=== PATIENT | female | born 1960 | race Caucasian/White ===

== ENCOUNTER 2016-10-11 10:46 | Emergency (ER) | payer MEDICAID ==
--- NOTE | 2016-10-11 11:28 | ER Document Report ---
ED Medical Screen (RME) - General Chief Complaint: Skin Problem Stated Complaint: SKIN PROBLEM/RIGHT ARM Time Seen by Provider: 10/11/16 11:23 Mode of Arrival: Ambulatory Information source: Patient Notes: This 56-year-old female patient comes emergency room with painful swelling to the right distal dorsal forearm. Seen in the office and received a Rocephin injection and prescription for Keflex on 10/08/2016. The area is looking worse and has some drainage. Patient has factor V Leiden and is on Coumadin for this. She also has hypertension, and states she may be borderline diabetic but has not been tested. I have greeted and performed a rapid initial assessment of this patient. A comprehensive ED assessment and evaluation of the patient, analysis of test results and completion of the medical decision making process will be conducted by additional ED providers. TRAVEL OUTSIDE OF THE [place] IN LAST 30 DAYS: No - Related Data Allergies/Adverse Reactions: erythromycin base Allergy (Verified 10/11/16 11:10) morphine Allergy (Verified 10/11/16 11:10) tetracycline Allergy (Verified 10/11/16 11:10) Past Medical History - Social History Chew tobacco use (# tins/day): No Frequency of alcohol use: None Drug Abuse: None - Past Medical History Cardiac Medical History: Reports: Hx Hypertension Pulmonary Medical History: Reports: Hx COPD Renal/ Medical History: Denies: Hx Peritoneal Dialysis Past Surgical History: Reports: Hx Orthopedic Surgery, Hx Tubal Ligation - Immunizations Hx Diphtheria, Pertussis, Tetanus Vaccination: Yes Physical Exam - Vital signs Vitals: Temp Pulse Resp BP Pulse Ox 98.4 F 73 18 153/96 H 96 10/11/16 10:48 10/11/16 10:48 10/11/16 10:48 10/11/16 10:48 10/11/16 10:48 Course - Vital Signs Vital signs: Temp Pulse Resp BP Pulse Ox 98.4 F 73 18 153/96 H 96 10/11/16 10:48 10/11/16 10:48 10/11/16 10:48 10/11/16 10:48 10/11/16 10:48
[2016-10-11 12:15] LABS: PROTHROMBIN TIME 35.9 SEC (11.4-15.4)
[2016-10-11 12:16] LABS: ABSOLUTE LYMPHOCYTES (AUTO) 0.4 10^3/uL (0.5-4.7); ABSOLUTE MONOCYTES (AUTO) 0.4 10^3/uL (0.1-1.4); ABSOLUTE NEUT (AUTO) 4.3 10^3/uL (1.7-8.2); BASOPHILS % (AUTO) 0.3 % (0-2); EOSINOPHILS % (AUTO) 0.2 % (0-6); HEMOGLOBIN 13.3 g/dL (12.0-15.5); HGB HCT DIFFERENCE -0.1; LYMPHOCYTES % (AUTO) 7.3 % (13-45); MEAN CORPUSCULAR HEMOGLOBIN 28.2 pg (27.0-33.4); MEAN CORPUSCULAR HGB CONC 33.2 g/dL (32.0-36.0); MEAN CORPUSCULAR VOLUME 85 fl (80-97); MONOCYTES % (AUTO) 8.3 % (3-13); RED BLOOD COUNT 4.72 10^6/uL (3.72-5.28); RED CELL DISTRIBUTION WIDTH 13.1 % (11.5-14.0); SEGMENTED NEUTROPHILS % (AUTO) 83.9 % (42-78); WHITE BLOOD COUNT 5.1 10^3/uL (4.0-10.5)
[2016-10-11 12:34] LABS: ALANINE AMINOTRANSFERASE 47 U/L (9-52); ALBUMIN 3.8 g/dL (3.5-5.0); ALKALINE PHOSPHATASE 87 U/L (38-126); ANION GAP 12 (5-19); ASPARTATE AMINO TRANSFERASE 32 U/L (14-36); BILIRUBIN,DIRECT 0.4 mg/dL (0.0-0.4); BILIRUBIN,TOTAL 0.7 mg/dL (0.2-1.3); BLOOD UREA NITROGEN 18 mg/dL (7-20); CALCIUM 9.7 mg/dL (8.4-10.2); CARBON DIOXIDE 31 mmol/L (22-30); CHLORIDE 100 mmol/L (98-107); CREATININE RESULT 0.81 mg/dL (0.52-1.25); GLUCOSE 124 mg/dL (75-110); POTASSIUM 3.8 mmol/L (3.6-5.0); SODIUM 142.5 mmol/L (137-145); TOTAL PROTEIN 6.8 g/dL (6.3-8.2)
[2016-10-11] MEDS ORDERED: CLINDAMYCIN HCL 150 MG CAPSULE PO ONE (13:06)
--- NOTE | 2016-10-11 13:54 | ER Document Report ---
ED General - General Chief Complaint: Skin Problem Stated Complaint: SKIN PROBLEM/RIGHT ARM Time Seen by Provider: 10/11/16 11:23 Mode of Arrival: Ambulatory TRAVEL OUTSIDE OF THE [place] IN LAST 30 DAYS: No - HPI Patient complains to provider of: Cellulitis abscess Notes: Patient coming in with history of diabetes and cellulitis of her arm. She otherwise has not. Patient has developed what looks to be an abscess of the distal arms proximal to the wrist. Patient denies fevers chills nausea vomiting. Patient is currently on Keflex states compliant with her medication. Patient denies any other recent antibiotics. Patient denies pain in her wrist. Patient does have range of motion in her wrist - Related Data Allergies/Adverse Reactions: erythromycin base Allergy (Verified 10/11/16 11:10) morphine Allergy (Verified 10/11/16 11:10) tetracycline Allergy (Verified 10/11/16 11:10) Past Medical History - General Information source: Patient - Social History Smoking Status: Never Smoker Chew tobacco use (# tins/day): No Frequency of alcohol use: None Drug Abuse: None Family History: Reviewed & Not Pertinent Patient has suicidal ideation: No Patient has homicidal ideation: No - Past Medical History Cardiac Medical History: Reports: Hx Hypertension Pulmonary Medical History: Reports: Hx COPD Renal/ Medical History: Denies: Hx Peritoneal Dialysis Past Surgical History: Reports: Hx Orthopedic Surgery, Hx Tubal Ligation - Immunizations Hx Diphtheria, Pertussis, Tetanus Vaccination: Yes Review of Systems - Review of Systems Constitutional: No symptoms reported EENT: No symptoms reported Cardiovascular: No symptoms reported Respiratory: No symptoms reported Gastrointestinal: No symptoms reported Genitourinary: No symptoms reported Female Genitourinary: No symptoms reported Musculoskeletal: No symptoms reported Skin: Other - Cellulitis and abscess Hematologic/Lymphatic: No symptoms reported Neurological/Psychological: No symptoms reported -: Yes All other systems reviewed and negative Physical Exam - Vital signs Vitals: Temp Pulse Resp BP Pulse Ox 98.4 F 73 18 153/96 H 96 10/11/16 10:48 10/11/16 10:48 10/11/16 10:48 10/11/16 10:48 10/11/16 10:48 Interpretation: Normal - General General appearance: Appears well, Alert - HEENT Head: Normocephalic, Atraumatic Eyes: Normal Pupils: PERRL - Respiratory Respiratory status: No respiratory distress Chest status: Nontender Breath sounds: Normal Chest palpation: Normal - Cardiovascular Rhythm: Regular Heart sounds: Normal auscultation Murmur: No - Abdominal Inspection: Normal Distension: No distension Bowel sounds: Normal Tenderness: Nontender Organomegaly: No organomegaly - Back Back: Normal, Nontender - Extremities General upper extremity: Normal inspection, Tender - Tenderness to palpation of the erythema of the distal arm proximal to the consistent with abscess, Normal color, Normal ROM, Normal temperature General lower extremity: Normal inspection, Nontender, Normal color, Normal ROM , Normal temperature, Normal weight bearing. No: Kasey's sign - Neurological Neuro grossly intact: Yes Cognition: Normal Orientation: AAOx4 [place] Coma Scale Eye Opening: Spontaneous Rita Coma Scale Verbal: Oriented [place] Coma Scale Motor: Obeys Commands [place] Coma Scale Total: 15 Speech: Normal Motor strength normal: LUE, RUE, LLE, RLE Sensory: Normal - Psychological Associated symptoms: Normal affect, Normal mood - Skin Skin Temperature: Warm Skin Moisture: Dry Skin Color: Normal Course - Re-evaluation Re-evalutation: 10/11/16 16:24 Patient seen for cellulitis abscess. Cellulitic area was marked. Patient underwent I&D with copious amount of pus. No signs of significant infection or sepsis. Patient was discharged home on clindamycin to cover MRSA sent - Vital Signs Vital signs: Temp Pulse Resp BP Pulse Ox 98.4 F 73 18 153/96 H 96 10/11/16 10:48 10/11/16 10:48 10/11/16 10:48 10/11/16 10:48 10/11/16 10:48 - Laboratory Result Diagrams: 10/11/16 11:47 10/11/16 11:47 Laboratory results interpreted by me: 10/11/16 10/11/16 10/11/16 11:47 11:47 11:47 Seg Neutrophils % 83.9 H Lymphocytes % 7.3 L Absolute Lymphocytes 0.4 L PT 35.9 H Carbon Dioxide 31 H Glucose 124 H Hemoglobin A1c % 10/11/16 11:47 Seg Neutrophils % Lymphocytes % Absolute Lymphocytes PT Carbon Dioxide Glucose Hemoglobin A1c % 6.1 H Procedures - Incision and Drainage Right Arm Type: Simple Anesthetic type: 1% Lidocaine mL's of anesthetic: 2 Blade size: 11 I&D procedure: Betadine prep applied, Chlorprep applied Incision Method: Incision made by scalpel Amount/type of drainage: Greater than 10 cc less than 20 cc of pus skin d made to allow the draining Discharge - Discharge Clinical Impression: Abscess Cellulitis Qualifiers: Site of cellulitis: unspecified site Qualified Code(s): L03.90 - Cellulitis, unspecified Condition: Good Disposition: HOME, SELF-CARE Instructions: Abscess ([facility]), Cellulitis ([facility]) Additional Instructions: Please take your antibiotics as prescribed. Return to the ER if symptoms worsen. Follow-up with your primary care physician. Prescriptions: Clindamycin HCl [Cleocin HCl] 150 mg PO QID 10 Days Referrals: TANIHSA MICHELLE DO [Primary Care Provider] - Follow up in 3-5 days
[2016-10-11 14:34] VITALS: BP 150/89
== END 2016-10-11 14:00 | disposition home or self-care (01) ==
LOC: ER 10:46
PROC: 0H9DXZZ Drainage of Right Lower Arm Skin, External Approach (ICD-10-PCS; principal; 2016-10-11)
DX: L03.90 Cellulitis, unspecified (principal); L02.413 Cutaneous abscess of right upper limb
CPT/HCPCS: 36415; 80053; 83036; 85025; 85610; 87070; 87075; 87077; 87186; 87205; 99283

== ENCOUNTER → 2016-10-28 | Outpatient (CLI) | payer SELFPAY ==
--- NOTE | 2016-10-28 16:44 | RADIOLOGY REPORT (SQ) ---
EXAM DESCRIPTION: TIBIA FIBULA RIGHT COMPLETED DATE/TIME: 10/28/2016 4:35 pm REASON FOR STUDY: PAIN IN RIGHT LOWER LEG, HEMATOMA OF LEFT HIP M79.661 PAIN IN RIGHT LOWER LEG S70 .02XA CONTUSION OF LEFT HIP, INITIAL ENCOUNTER COMPARISON: None. NUMBER OF VIEWS: Two views. TECHNIQUE: Two radiographic images acquired of the right tibia and fibula to include the knee and an kle in at least one projection. LIMITATIONS: None. FINDINGS: MINERALIZATION: Normal. BONES: No acute fracture or dislocation. No worrisome bone lesions. SOFT TISSUES: No obvious swelling or foreign body. OTHER: No other significant finding. IMPRESSION: NEGATIVE STUDY OF THE RIGHT TIBIA AND FIBULA. NO RADIOGRAPHIC EVIDENCE OF ACUTE INJURY. TECHNICAL DOCUMENTATION: JOB ID: [id number] [employer]- All Rights Reserved
--- NOTE | 2016-10-28 16:45 | RADIOLOGY REPORT (SQ) ---
EXAM DESCRIPTION: HIP LEFT AP/LATERAL COMPLETED DATE/TIME: 10/28/2016 4:35 pm REASON FOR STUDY: PAIN IN RIGHT LOWER LEG, HEMATOMA OF LEFT HIP M79.661 PAIN IN RIGHT LOWER LEG S70 .02XA CONTUSION OF LEFT HIP, INITIAL ENCOUNTER COMPARISON: None. NUMBER OF VIEWS: Two views. TECHNIQUE: AP pelvis and additional frog-leg view of the left hip. LIMITATIONS: None. FINDINGS: MINERALIZATION: Normal. LEFT HIP: No fracture or dislocation. No worrisome bone lesions. RIGHT HIP: No fracture or dislocation. No worrisome bone lesions. PUBIS AND ISCHIUM: No fracture. PELVIS: No fracture. SACRUM: No fracture or dislocation. No worrisome bone lesions. LOWER LUMBAR SPINE: No fracture or dislocation. No worrisome bone lesions. No significant disc disea se. SOFT TISSUES: No findings. OTHER: No other significant finding. IMPRESSION: NEGATIVE STUDY OF THE LEFT HIP AND PELVIS. NO RADIOGRAPHIC EVIDENCE OF ACUTE INJURY. TECHNICAL DOCUMENTATION: JOB ID: [id number] [employer]- All Rights Reserved
== END ==
LOC: RAD 16:12
PROVIDERS: ATTEND Family Medicine
DX: S70.02XA Contusion of left hip, initial encounter (principal); X58.XXXA Exposure to other specified factors, initial encounter; M79.661 Pain in right lower leg

== ENCOUNTER 2016-11-13 17:32 | Emergency (ER) | payer SELFPAY ==
--- NOTE | 2016-11-13 18:27 | ER Document Report ---
ED Medical Screen (RME) - General Mode of Arrival: Ambulatory Information source: Patient TRAVEL OUTSIDE OF THE [place] IN LAST 30 DAYS: No - HPI Patient complains to provider of: Rash and bruising to the right arnold and left hip Onset: Other - see notes above Associated Symptoms: Other - see notes above <KATHRYN JEWELL - Last Filed: 11/13/16 19:40> <MARGARITA TORRES - Last Filed: 11/13/16 21:22> - General Chief Complaint: Contusion Stated Complaint: RIGHT CALF AND LEFT HIP PAIN Time Seen by Provider: 11/13/16 18:18 Notes: 56 year old female with history of pulmonary embolism and Factor V Leiden presents to the ED complaining of a generalized rash to her upper torso and back and bruises to the right anterior arnold and left hip. Patient reports that she had a fall on 10/23/2016 and bruised her right arnold and left hip and is concerned that they might be infected and have turned into an abscess. Patient states that during memorial day she came to the ED with a bruise to her wrist that was infected with MRSA and had to be drained. Patient is concerned that this is the case for the bruises to her right arnold and left hip. Patient noticed the generalized rash to her upper torso and back yesterday after she started scratching her back. Patient is currently taking Coumadin. (KATHRYN JEWELL) - Related Data Allergies/Adverse Reactions: erythromycin base Allergy (Verified 10/11/16 11:10) morphine Allergy (Verified 10/11/16 11:10) tetracycline Allergy (Verified 10/11/16 11:10) Past Medical History - General Information source: Patient - Past Medical History Cardiac Medical History: Reports: Hx Hypertension Pulmonary Medical History: Reports: Hx COPD Renal/ Medical History: Denies: Hx Peritoneal Dialysis Skin Medical History: Reports Hx MRSA Past Surgical History: Reports: Hx Orthopedic Surgery, Hx Tubal Ligation - Immunizations Hx Diphtheria, Pertussis, Tetanus Vaccination: Yes <KATHRYN JEWELL - Last Filed: 11/13/16 19:40> <MARGARITA TORRES - Last Filed: 11/13/16 21:22> - Medical History Notes: History of Factor V Leiden. (KATHRYN JEWELL) Review of Systems - Review of Systems Constitutional: No symptoms reported EENT: No symptoms reported Cardiovascular: No symptoms reported Respiratory: No symptoms reported Gastrointestinal: No symptoms reported Genitourinary: No symptoms reported Female Genitourinary: No symptoms reported Musculoskeletal: No symptoms reported Skin: See HPI, Rash, Other - brusing to the right arnold and left hip Hematologic/Lymphatic: No symptoms reported Neurological/Psychological: No symptoms reported -: Yes All other systems reviewed and negative <KATHRYN JEWELL - Last Filed: 11/13/16 19:40> Physical Exam - General General appearance: Alert In distress: None - HEENT Head: Normocephalic, Atraumatic Eyes: Normal Extraocular movements intact: Yes Pupils: PERRL - Respiratory Respiratory status: No respiratory distress - Extremities General upper extremity: No: Normal inspection - see skin exam below General lower extremity: No: Normal inspection - see skin exam below - Skin Skin irregularity: other - 2 large swollen areas consistent with hematomas. Largest hematoma is to the left lateral hip with small centralized area of fluctuance with minimal surrounding erythema. Smaller hematoma is to the right anterior tibia with no erythema or fluctuance. Non-blanching petechial rash on the bilateral legs. There is a flat erythematous diffuse blanching fine rash confluent on the back, less dense on breast, and across the anterior abdomen. <KATHRYN JEWELL - Last Filed: 11/13/16 19:40> Course - Laboratory Result Diagrams: 11/13/16 18:35 11/13/16 18:35 <KATHRYN JEWELL - Last Filed: 11/13/16 19:40> - Laboratory Result Diagrams: 11/13/16 18:35 11/13/16 18:35 <MARGARITA TORRES - Last Filed: 11/13/16 21:22> - Vital Signs Vital signs: Temp Pulse Resp BP Pulse Ox 98.1 F 79 18 149/97 H 99 11/13/16 20:50 11/13/16 20:50 11/13/16 20:50 11/13/16 20:50 11/13/16 20:50 - Laboratory Laboratory results interpreted by me: 11/13/16 11/13/16 11/13/16 18:35 18:35 18:35 RDW 14.1 H PT 31.4 H APTT 40.9 H BUN 24 H Est GFR ( Amer) 56 L Est GFR (Non-Af Amer) 46 L Doctor's Discharge <KATHRYN JEWELL - Last Filed: 11/13/16 19:40> <MARGARITA TORRES - Last Filed: 11/13/16 21:22> - Discharge Clinical Impression: Hematoma and contusion, Rash Condition: Fair Disposition: HOME, SELF-CARE Additional Instructions: Take ceterizine 10mg twice daily and hold on the clindamycin as it may be related to your rash. Please return if you develop shortness of breath, vomiting , pass out, or have any other symptoms that are concerning to you. Referrals: TANISHA MICHELLE DO [Primary Care Provider] - Follow up as needed Scribe Documentation - Scribe Written by Munir:: Munir Stewart, 11/13/20162004 acting as scribe for :: Nasir <KATHRYN JEWELL - Last Filed: 11/13/16 19:40>
[2016-11-13 18:56] LABS: ABSOLUTE EOSINOPHILS # (AUTO) 0.1 10^3/uL (0.0-0.6); ABSOLUTE LYMPHOCYTES (AUTO) 1.1 10^3/uL (0.5-4.7); ABSOLUTE MONOCYTES (AUTO) 0.8 10^3/uL (0.1-1.4); ABSOLUTE NEUT (AUTO) 4.8 10^3/uL (1.7-8.2); BASOPHILS % (AUTO) 0.5 % (0-2); HEMOGLOBIN 13.7 g/dL (12.0-15.5); HGB HCT DIFFERENCE -0.9; LYMPHOCYTES % (AUTO) 16.4 % (13-45); MEAN CORPUSCULAR HEMOGLOBIN 27.9 pg (27.0-33.4); MEAN CORPUSCULAR HGB CONC 32.6 g/dL (32.0-36.0); MEAN CORPUSCULAR VOLUME 86 fl (80-97); MONOCYTES % (AUTO) 11.6 % (3-13); RED CELL DISTRIBUTION WIDTH 14.1 % (11.5-14.0); SEGMENTED NEUTROPHILS % (AUTO) 69.5 % (42-78); WHITE BLOOD COUNT 6.9 10^3/uL (4.0-10.5)
[2016-11-13] MEDS ORDERED: DIPHENHYDRAMINE HCL 50 MG CAPSULE PO ONE (18:58)
[2016-11-13 19:05] LABS: PARTIAL THROMBOPLASTIN TIME 40.9 SEC (23.5-35.8); PROTHROMBIN TIME 31.4 SEC (11.4-15.4)
[2016-11-13 19:08] LABS: ALANINE AMINOTRANSFERASE 39 U/L (9-52); ALBUMIN 4.4 g/dL (3.5-5.0); ALKALINE PHOSPHATASE 90 U/L (38-126); ANION GAP 11 (5-19); ASPARTATE AMINO TRANSFERASE 27 U/L (14-36); BILIRUBIN,DIRECT 0.3 mg/dL (0.0-0.4); BILIRUBIN,TOTAL 0.8 mg/dL (0.2-1.3); BLOOD UREA NITROGEN 24 mg/dL (7-20); CALCIUM 9.7 mg/dL (8.4-10.2); CARBON DIOXIDE 29 mmol/L (22-30); CHLORIDE 103 mmol/L (98-107); GLUCOSE 90 mg/dL (75-110); POTASSIUM 3.7 mmol/L (3.6-5.0); SODIUM 143.2 mmol/L (137-145); TOTAL PROTEIN 7.3 g/dL (6.3-8.2)
--- NOTE | 2016-11-13 20:31 | ER Document Report ---
ED General - General Chief Complaint: Contusion Stated Complaint: RIGHT CALF AND LEFT HIP PAIN Time Seen by Provider: 11/13/16 18:18 Mode of Arrival: Ambulatory Notes: Patient is a 56-year-old female with a history of PE currently screen was on warfarin who presents with concerns of a rash over her back and torso that started in the past 12 hours. Describes as a pruritic, burning rash. Nothing worsens her symptoms and she is uncertain what triggered them. She has tried Benadryl without any significant improvement. Patient states that she is currently on clindamycin for a possible cellulitis of her right lower extremity she has been on this for 8 days and did not develop a rash until today. Denies any associated difficulty breathing, vomiting, diarrhea or syncope. She has not seen a primary care doctor regarding today's concerns. TRAVEL OUTSIDE OF THE [place] IN LAST 30 DAYS: No - Related Data Allergies/Adverse Reactions: erythromycin base Allergy (Verified 10/11/16 11:10) morphine Allergy (Verified 10/11/16 11:10) tetracycline Allergy (Verified 10/11/16 11:10) Past Medical History - General Information source: Patient - Social History Smoking Status: Never Smoker Chew tobacco use (# tins/day): No Frequency of alcohol use: None Drug Abuse: None Lives with: Spouse/Significant other Family History: Reviewed & Not Pertinent Patient has suicidal ideation: No Patient has homicidal ideation: No - Past Medical History Cardiac Medical History: Reports: Hx Hypertension Pulmonary Medical History: Reports: Hx COPD Renal/ Medical History: Denies: Hx Peritoneal Dialysis Skin Medical History: Reports Hx MRSA Past Surgical History: Reports: Hx Orthopedic Surgery, Hx Tubal Ligation - Immunizations Hx Diphtheria, Pertussis, Tetanus Vaccination: Yes Review of Systems - Review of Systems Notes: Constitutional: Negative for fever. HENT: Negative for sore throat. Eyes: Negative for visual changes. Cardiovascular: Negative for chest pain. Respiratory: Negative for shortness of breath. Gastrointestinal: Negative for abdominal pain, vomiting or diarrhea. Genitourinary: Negative for dysuria. Musculoskeletal: Negative for back pain. Skin: Positive for rash. Neurological: Negative for headaches, weakness or numbness. 10 point ROS negative except as marked above and in HPI. Physical Exam - Vital signs Vitals: Temp Pulse Resp BP Pulse Ox 98.3 F 98 15 154/99 H 98 11/13/16 17:47 06/30/17 17:47 11/13/16 17:47 11/13/16 17:47 11/13/16 17:47 Interpretation: Hypertensive Notes: PHYSICAL EXAMINATION: GENERAL: Well-appearing, well-nourished and in no acute distress. HEAD: Atraumatic, normocephalic. EYES: Pupils equal round and reactive to light, extraocular movements intact, sclera anicteric, conjunctiva are normal. ENT: nares patent, oropharynx clear without exudates. Moist mucous membranes. NECK: Normal range of motion, supple without lymphadenopathy LUNGS: Breath sounds clear to auscultation bilaterally and equal. No wheezes rales or rhonchi. HEART: Regular rate and rhythm without murmurs ABDOMEN: Soft, nontender, normoactive bowel sounds. No guarding, no rebound. No masses appreciated. EXTREMITIES: Normal range of motion, no pitting or edema. No cyanosis. NEUROLOGICAL: No focal neurological deficits. Moves all extremities spontaneously and on command. PSYCH: Normal mood, normal affect. SKIN: Warm, Dry, normal turgor, diffuse papular rash along the back and torso. There is a 2 x 3 cm hematoma on the right tibial surface without any surrounding erythema or edema. There is also a resolving hematoma along the left hip without any fluctuance or tenderness to palpation. Course - Re-evaluation Re-evalutation: 11/13/16 20:30 Patient presents with a papular rash over her back and torso, not completely consistent with acute urticaria. No petechial rash. She also has 2 hematomas that have been present since the and she notes it actually significantly improved since her original injury. There is no evidence of a cellulitis or abscess to the affected areas. She is otherwise well in appearance, vitals within normal limits, hemoglobin, platelets and white blood cell count are all within normal limits. I have encouraged her to discontinue clindamycin and see if this resolves her rash though her current clinical history of 8 days into taking the antibiotic is not entirely consistent with a true allergic reaction. At this time will discharge with return precautions and follow-up recommendations. Verbal discharge instructions given a the bedside and opportunity for questions given. Medication warnings reviewed. Patient is in agreement with this plan and has verbalized understanding of return precautions and the need for primary care follow-up in the next 24-72 hours. - Vital Signs Vital signs: Temp Pulse Resp BP Pulse Ox 98.1 F 79 18 149/97 H 99 11/13/16 20:50 11/13/16 20:50 11/13/16 20:50 11/13/16 20:50 11/13/16 20:50 - Laboratory Result Diagrams: 11/13/16 18:35 11/13/16 18:35 Laboratory results interpreted by me: 11/13/16 11/13/16 11/13/16 18:35 18:35 18:35 RDW 14.1 H PT 31.4 H APTT 40.9 H BUN 24 H Est GFR ( Amer) 56 L Est GFR (Non-Af Amer) 46 L Discharge - Discharge Clinical Impression: Hematoma and contusion, Rash Condition: Fair Disposition: HOME, SELF-CARE Additional Instructions: Take ceterizine 10mg twice daily and hold on the clindamycin as it may be related to your rash. Please return if you develop shortness of breath, vomiting , pass out, or have any other symptoms that are concerning to you. Referrals: TANISHA MICHELEL DO [Primary Care Provider] - Follow up as needed
[2016-11-13 20:56] VITALS: BP 149/97
== END 2016-11-13 20:51 | disposition home or self-care (01) ==
LOC: ER 17:32
DX: S80.11XA Contusion of right lower leg, initial encounter (principal); S70.02XA Contusion of left hip, initial encounter; X58.XXXA Exposure to other specified factors, initial encounter; R21 Rash and other nonspecific skin eruption; I10 Essential (primary) hypertension; J44.9 Chronic obstructive pulmonary disease, unspecified; Z86.711 Personal history of pulmonary embolism; Z79.01 Long term (current) use of anticoagulants; Z88.1 Allergy status to other antibiotic agents; Z88.5 Allergy status to narcotic agent; Z86.14 Personal history of Methicillin resistant Staphylococcus aureus infection
CPT/HCPCS: 36415; 80053; 85025; 85610; 85730; 99283

== ENCOUNTER → 2017-04-13 | Outpatient (CLI) | payer SELFPAY ==
--- NOTE | 2017-04-13 16:30 | RADIOLOGY REPORT (SQ) ---
EXAM DESCRIPTION: CHEST PA/LAT COMPLETED DATE/TIME: 04/13/2017 4:03 pm REASON FOR STUDY: R06.02 SHORTNESS OF BREATH COMPARISON: 08/13/2015 EXAM PARAMETERS: NUMBER OF VIEWS: two views TECHNIQUE: Digital Frontal and Lateral radiographic views of the chest acquired. RADIATION DOSE: NA LIMITATIONS: none FINDINGS: LUNGS AND PLEURA: There are patchy infiltrates in the left lower lobe and right lower lobe , worrisome for pneumonia. No pleural effusions. No pneumothorax. MEDIASTINUM AND HILAR STRUCTURES: No masses or contour abnormalities. HEART AND VASCULAR STRUCTURES: Heart normal size. No evidence for failure. BONES: No acute findings. HARDWARE: None in the chest. OTHER: No other significant finding. IMPRESSION: Bilateral lower lobe airspace disease, left greater than right, worrisome for pneumonia TECHNICAL DOCUMENTATION: JOB ID: [id number] [employer]- All Rights Reserved
== END ==
LOC: RAD 15:47
PROVIDERS: ATTEND Family Medicine
DX: R06.02 Shortness of breath (principal)
CPT/HCPCS: 71020

== ENCOUNTER → 2017-07-10 | Outpatient (CLI) | payer SELFPAY ==
--- NOTE | 2017-07-10 14:36 | RADIOLOGY REPORT (SQ) ---
EXAM DESCRIPTION: CHEST PA/LATERAL COMPLETED DATE/TIME: 07/10/2017 11:05 am REASON FOR STUDY: CHEST PAIN ON BREATHING COMPARISON: 04/13/2017 two-view chest 08/13/2015 two-view chest EXAM PARAMETERS: NUMBER OF VIEWS: two views TECHNIQUE: Digital Frontal and Lateral radiographic views of the chest acquired. RADIATION DOSE: NA LIMITATIONS: none FINDINGS: LUNGS AND PLEURA: Minimal biapical pleural-parenchymal scarring, similar compared to studi es dating back to 2016. No acute infiltrates. No pleural effusions. No pneumothorax MEDIASTINUM AND HILAR STRUCTURES: No masses or contour abnormalities. HEART AND VASCULAR STRUCTURES: Heart normal size. No evidence for failure. BONES: No acute findings. HARDWARE: None in the chest. OTHER: No other significant finding. IMPRESSION: NO SIGNIFICANT RADIOGRAPHIC FINDING IN THE CHEST. TECHNICAL DOCUMENTATION: JOB ID: [id number] [employer]- All Rights Reserved Reading location - IP/workstation name: [email or web address]
== END ==
LOC: OD 10:50
PROVIDERS: ATTEND Family Medicine
DX: R07.1 Chest pain on breathing (principal)
CPT/HCPCS: 71046

== ENCOUNTER → 2017-10-29 | Outpatient (CLI) | payer SELFPAY ==
--- NOTE | 2017-10-29 12:33 | RADIOLOGY REPORT (SQ) ---
EXAM DESCRIPTION: FOOT BILATERAL 3 VIEWS COMPLETED DATE/TIME: 10/29/2017 11:44 am REASON FOR STUDY: PAIN IN BOTH FEET M79.671 PAIN IN RIGHT FOOT M79.672 PAIN IN LEFT FOOT COMPARISON: None. NUMBER OF VIEWS: Three views. TECHNIQUE: AP, lateral and oblique without weight bearing radiographic images acquired of the right and left foot. LIMITATIONS: None. FINDINGS: MINERALIZATION: Normal. BONES: No acute fracture or dislocation. No worrisome bone lesions. No sclerosis. No periosteum mandeep ction. No significant osteophytes. JOINTS: No erosions. No kena-articular osteopenia. No chondrocalcinosis. SOFT TISSUES: No swelling. No calcifications. OTHER: No other significant finding. IMPRESSION: NO SIGNIFICANT FINDINGS IN EITHER FOOT. TECHNICAL DOCUMENTATION: JOB ID: [id number] [employer]- All Rights Reserved Reading location - IP/workstation name: [email or web address]
== END ==
LOC: RAD 11:07
PROVIDERS: ATTEND Family Medicine
DX: M79.671 Pain in right foot (principal); M79.672 Pain in left foot

== ENCOUNTER 2017-12-21 16:04 | Emergency (ER) | payer SELFPAY ==
--- NOTE | 2017-12-21 17:08 | ER Document Report ---
ED Medical Screen (RME) - General Chief Complaint: Foot Pain Stated Complaint: FOOT PAIN Time Seen by Provider: 12/21/17 16:55 Notes: Patient presents with concern of redness that began tracking of her right foot into her right lower extremity that started several days ago. Patient states that she has been having in her right foot since approximately but no recent traumas falls scrapes abrasions or lacerations. Patient states she has been feeling hot today. Patient has history of blood clots in her lungs or legs and is on warfarin for her factor V Leiden. No chest pain or shortness of breath at this time I have greeted and performed a rapid initial assessment of this patient. A comprehensive ED assessment and evaluation of the patient, analysis of test results and completion of the medical decision making process will be conducted by additional ED providers. PHYSICAL EXAMINATION: GENERAL: Well-appearing, well-nourished and in no acute distress. HEAD: Atraumatic, normocephalic. EYES: Pupils equal round extraocular movements intact, conjunctiva are normal. ENT: Nares patent NECK: Normal range of motion LUNGS: No respiratory distress Musculoskeletal: Normal range of motion NEUROLOGICAL: Normal speech, normal gait. PSYCH: Normal mood, normal affect. SKIN: +2 RLE pitting edema, erythema, warmth compared to LLE. TRAVEL OUTSIDE OF THE [place] IN LAST 30 DAYS: No - Related Data Allergies/Adverse Reactions: erythromycin base Allergy (Verified 10/11/16 11:10) morphine Allergy (Verified 10/11/16 11:10) tetracycline Allergy (Verified 10/11/16 11:10) Past Medical History - Past Medical History Cardiac Medical History: Reports: Hx Hypertension Pulmonary Medical History: Reports: Hx COPD Renal/ Medical History: Denies: Hx Peritoneal Dialysis Skin Medical History: Reports Hx MRSA Past Surgical History: Reports: Hx Orthopedic Surgery, Hx Tubal Ligation - Immunizations Hx Diphtheria, Pertussis, Tetanus Vaccination: Yes Physical Exam - Vital signs Vitals: Temp Pulse Resp BP Pulse Ox 99.7 F 121 H 18 116/60 94 12/21/17 16:14 12/21/17 16:14 12/21/17 16:14 12/21/17 16:14 12/21/17 16:14 Course - Vital Signs Vital signs: Temp Pulse Resp BP Pulse Ox 99.7 F 121 H 18 116/60 94 12/21/17 16:14 12/21/17 16:14 12/21/17 16:14 12/21/17 16:14 12/21/17 16:14 Doctor's Discharge - Discharge Referrals: TANISHA MICHELLE DO [Primary Care Provider] - Follow up as needed
--- NOTE | 2017-12-21 17:32 | RADIOLOGY REPORT (SQ) ---
EXAM DESCRIPTION: FOOT RIGHT COMPLETE COMPLETED DATE/TIME: 12/21/2017 5:23 pm REASON FOR STUDY: foot swelling COMPARISON: None. NUMBER OF VIEWS: Three views. TECHNIQUE: AP, lateral and oblique radiographic images acquired of the right foot. LIMITATIONS: None. FINDINGS: MINERALIZATION: Normal. BONES: No acute fracture or dislocation. No worrisome bone lesions. JOINTS: No effusions. SOFT TISSUES: There is considerable soft tissue swelling of the foot. OTHER: No other significant finding. IMPRESSION: Soft tissue swelling with no fracture. TECHNICAL DOCUMENTATION: JOB ID: [id number] [employer]- All Rights Reserved Reading location - IP/workstation name: [email or web address]
[2017-12-21 17:59] LABS: HEMATOCRIT 40.1 % (36.0-47.0); HEMOGLOBIN 13.7 g/dL (12.0-15.5); MEAN CORPUSCULAR HEMOGLOBIN 28.1 pg (27.0-33.4); MEAN CORPUSCULAR HGB CONC 34.1 g/dL (32.0-36.0); MEAN CORPUSCULAR VOLUME 83 fl (80-97); PLATELET COUNT 314 10^3/uL (150-450); RED BLOOD COUNT 4.86 10^6/uL (3.72-5.28); RED CELL DISTRIBUTION WIDTH 13.1 % (11.5-14.0); WHITE BLOOD COUNT 2.9 10^3/uL (4.0-10.5)
[2017-12-21 18:10] LABS: INTERNATIONAL RATION (INR) 2.06; PROTHROMBIN TIME 24.2 SEC (11.4-15.4)
[2017-12-21 18:13] LABS: ALANINE AMINOTRANSFERASE 27 U/L (9-52); ALBUMIN 3.9 g/dL (3.5-5.0); ALKALINE PHOSPHATASE 80 U/L (38-126); ANION GAP 13 (5-19); ASPARTATE AMINO TRANSFERASE 28 U/L (14-36); BILIRUBIN,DIRECT 0.2 mg/dL (0.0-0.4); BILIRUBIN,TOTAL 0.5 mg/dL (0.2-1.3); BLOOD UREA NITROGEN 11 mg/dL (7-20); C-REACTIVE PROTEIN 63.5 mg/L (<10.0); CALCIUM 9.4 mg/dL (8.4-10.2); CARBON DIOXIDE 32 mmol/L (22-30); CHLORIDE 98 mmol/L (98-107); GLUCOSE 167 mg/dL (75-110); POTASSIUM 3.5 mmol/L (3.6-5.0); SODIUM 143.2 mmol/L (137-145); TOTAL PROTEIN 6.9 g/dL (6.3-8.2)
[2017-12-21 18:23] LABS: ABSOLUTE LYMPHOCYTES# (MANUAL) 1.1 10^3/uL (0.5-4.7); ABSOLUTE MONOCYTES # (MANUAL) 0.8 10^3/uL (0.1-1.4); ABSOLUTE NEUTROPHILS# (MANUAL) 0.8 10^3/uL (1.7-8.2); BASOPHILS % (MANUAL) 1 % (0-2); EOSINOPHILS % (MANUAL) 5 % (0-6); LYMPHOCYTES % (MANUAL) 38 % (13-45); SEGMENTED NEUTROPHILS % (MAN) 28 % (42-78); TOTAL CELLS COUNTED 100
[2017-12-21 18:26] LABS: PLATELET CLUMPS PRESENT; PLATELET COMMENT ADEQUATE; PLATELET GIANT PRESENT; PLATELET LARGE PRESENT; TOXIC VACUOLATION PRESENT
[2017-12-21 18:28] LABS: MONOCYTES % (MANUAL) 28 % (3-13)
[2017-12-21 18:41] LABS: ERYTHROCYTE SEDIMENTATION RATE 59 mm/hr (0-30)
--- NOTE | 2017-12-21 18:55 | RADIOLOGY REPORT (SQ) ---
EXAM DESCRIPTION: VENOUS UNILATERAL LOWER COMPLETED DATE/TIME: 12/21/2017 6:45 pm REASON FOR STUDY: pain right leg / Hx clots COMPARISON: None. TECHNIQUE: Dynamic and static post scale and color images acquired of the right leg venous system. S elected spectral images acquired with additional compression and augmentation maneuvers. The contrala teral common femoral vein and saphenofemoral junction were also imaged. Images stored on PACS. LIMITATIONS: None. FINDINGS: COMMON FEMORAL: Normal phasicity, compression and augmentation. No visualized echogenic ma terial on post scale. No defects on color images. FEMORAL: Normal compression and augmentation. No visualized echogenic material on pots scale. No defe cts on color images. POPLITEAL: Normal compression, augmentation. No visualized echogenic material on post scale. No defec ts on color images. CALF VESSELS: Normal compression, augmentation. No visualized echogenic material on post scale. No de fects on color images. GSV and SSV: Normal compression, augmentation. No visualized echogenic material on post scale. No def ects on color images. ANY DEEP VENOUS INSUFFICIENCY: No. ANY EVIDENCE OF POPLITEAL CYST: No. OTHER: No other significant finding. CONTRALATERAL COMMON FEMORAL VEIN AND SAPHENOFEMORAL JUNCTION: Normal phasicity, compression and augmentation. No visualized echogenic material on post scale. No de fects on color images. IMPRESSION: NO EVIDENCE DVT OR SVT IN THE RIGHT LEG. TECHNICAL DOCUMENTATION: JOB ID: [id number] [employer]- All Rights Reserved Reading location - IP/workstation name: [email or web address]
--- NOTE | 2017-12-21 23:47 | RADIOLOGY REPORT (SQ) ---
EXAM DESCRIPTION: CT LOWER EXTREMITY WITHOUT IV CONTRAST COMPLETED DATE/TME: 12/21/2017 23:03 CLINICAL HISTORY: 57 years, Female, right foot swelling. COMPARISON: Right foot radiographs performed same day. TECHNIQUE: Contiguous axial CT images of the right foot obtained without contrast. All CT scanners at this facility use dose modulation, iterative reconstruction, and/or weight based dosing when appropriate to reduce radiation dose to as low as reasonably achievable (ALARA). [facility]: Dose Right [facility]: CareDose [facility]: Dose Right [facility]: Teradose 4D [facility]: Spling LIMITATIONS: None. FINDINGS: Diffuse edema within the subcutaneous soft tissues of the foot. No well-circumscribed fluid collections. Atherosclerotic vascular calcification. Osteopenia. The distal tibia and fibula are intact. The talus and calcaneus are intact. The tarsals demonstrate no fracture. No tarsal fracture identified. Sclerotic lesion involving the base of the second metatarsal likely represents a bone island. No definite lytic osseous lesions. No fracture of the digits identified. Mild degenerative spurring of the tarsometatarsal joints. IMPRESSION: 1. No acute osseous abnormality of the right foot. 2. Diffuse subcutaneous edema throughout the right foot without well-circumscribed fluid collection. TECHNICAL DOCUMENTATION: Quality ID # [id number]: Final reports with documentation of one or more dose reduction techniques (e.g., Automated exposure control, adjustment of the mA and/or kV according to patient size, use of iterative reconstruction technique) 2010 [employer]- All Rights Reserved
[2017-12-22] MEDS ORDERED: CLINDAMYCIN HCL 150 MG CAPSULE PO ONE (00:20)
--- NOTE | 2017-12-22 00:24 | ER Document Report ---
ED General - General Chief Complaint: Foot Pain Stated Complaint: FOOT PAIN Time Seen by Provider: 12/21/17 16:55 Notes: Patient has pain in the right foot and swelling that started earlier today. Is only in the right foot. She denies any recent infections or fevers. She does says she has pain but she refuses taking pain medicine. She does have a history of factor V Leiden. She is on Coumadin. She has not noticed any abnormal bleeding. No chest pain or difficulty breathing. 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 TRAVEL OUTSIDE OF THE [place] IN LAST 30 DAYS: No - Related Data Allergies/Adverse Reactions: erythromycin base Allergy (Verified 10/11/16 11:10) morphine Allergy (Verified 10/11/16 11:10) tetracycline Allergy (Verified 10/11/16 11:10) Past Medical History - Social History Smoking Status: Never Smoker Frequency of alcohol use: None Drug Abuse: None Family History: Reviewed & Not Pertinent Patient has suicidal ideation: No Patient has homicidal ideation: No - Past Medical History Cardiac Medical History: Reports: Hx Hypertension Pulmonary Medical History: Reports: Hx COPD Renal/ Medical History: Denies: Hx Peritoneal Dialysis Skin Medical History: Reports Hx MRSA Past Surgical History: Reports: Hx Orthopedic Surgery, Hx Tubal Ligation - Immunizations Hx Diphtheria, Pertussis, Tetanus Vaccination: Yes Review of Systems - Review of Systems Notes: My Normal Review Basic REVIEW OF SYSTEMS: CONSTITUTIONAL : Denies fever, chills, or sweats. Denies recent illness. RESPIRATORY: Denies cough, cold, or chest congestion. Denies shortness of breath, difficulty breathing, or wheezing. GASTROINTESTINAL: Denies abdominal pain. Denies nausea, vomiting, or diarrhea. Denies constipation. Last BM: GENITOURINARY: Denies difficulty urinating, painful urination, burning, frequency, or blood in urine. MUSCULOSKELETAL: swelling in right foot SKIN: redness over the foot NEUROLOGICAL: Denies sensory or motor loss. ALL OTHER SYSTEMS REVIEWED AND NEGATIVE. Physical Exam - Vital signs Vitals: Temp Pulse Resp BP Pulse Ox 99.7 F 121 H 18 116/60 94 12/21/17 16:14 12/21/17 16:14 12/21/17 16:14 12/21/17 16:14 12/21/17 16:14 - Notes Notes: General Appearance: Well nourished, alert, cooperative, no acute distress, mild to moderate obvious discomfort. Vitals: reviewed, See vital signs table. Eyes: PERRL, EOMI, Conjuctiva clear Lungs: No wheezing, No rales, No rhonci, No accessory muscle use, good air exchange bilaterally. Heart: Normal rate, Regular rythm, No murmur, no rub Extremities: strength 5/5 in all extremities, good pulses in all extremities, patient has obvious swelling to the foot itself. She also has erythema to the foot and little bit into the distal leg. Consistent with possible cellulitis. Area is tender to palpation. There are no breaks in the skin. Skin: warm, dry, appropriate color, no rash Neuro: speech clear, oriented x 3, normal affect, responds appropriately to questions. Course - Re-evaluation Re-evalutation: 12/22/17 05:47 Patient has what I suspect is cellulitis. Initially the foot was just, faint red and there was a more deep red towards the end of her stay. She does have swelling in the foot and a little bit into the proximal ankle there is redness associate with the swelling. CT scan does not show evidence of abscess. No evidence of excising fasciitis. Pain is not out of proportion to exam. She still has a little bit tachycardia which I think is related to pain as patient refuses taking pain medicine but obviously does have some pain in her foot and leg. She does have some elevated ESR which could be related to infection as well. Dopplers are negative. She does not have a fever. I feel she is safe to be discharged home but informed her she must have a low threshold to return to the ER if she has spreading swelling or redness despite being on the antibiotics. Patient agrees with plan will be discharged home. Dictation of this chart was performed using voice recognition software; therefore, there may be some unintended grammatical errors. - Vital Signs Vital signs: Temp Pulse Resp BP Pulse Ox 98.2 F 110 H 16 119/76 99 12/22/17 00:45 12/22/17 00:45 12/22/17 00:45 12/22/17 00:45 12/22/17 00:45 - Laboratory Result Diagrams: 12/21/17 17:32 12/21/17 17:32 Laboratory results interpreted by me: 12/21/17 12/21/17 12/21/17 17:32 17:32 17:32 WBC 2.9 L Seg Neuts % (Manual) 28 L Monocytes % (Manual) 28 H Abs Neuts (Manual) 0.8 L ESR 59 H PT 24.2 H Potassium 3.5 L Carbon Dioxide 32 H Glucose 167 H C-Reactive Protein 63.5 H Discharge - Discharge Clinical Impression: Foot swelling Condition: Good Disposition: HOME, SELF-CARE Additional Instructions: Please take the antibiotic as prescribed. Please keep the foot elevated. Please follow up closely with your primary care doctor in 1-2 days for close reevaluation. Please return tot ER [email or web address] if you have ay progressive swelling, spreading redness, fevers, or feel that you are worsening in any way. Follow up with your director of group counseling program this week. Prescriptions: Clindamycin HCl 300 mg PO ASDIR #56 capsule Forms: Return to Work
[2017-12-22 00:47] VITALS: BP 119/76
[2017-12-22 17:51] LABS: PATH REVIEW PATHOLOGIST REVIEWED
== END 2017-12-22 01:11 | disposition home or self-care (01) ==
LOC: ER 16:04
DX: M79.89 Other specified soft tissue disorders (principal); M79.641 Pain in right hand; D68.51 Activated protein C resistance; Z79.01 Long term (current) use of anticoagulants; I10 Essential (primary) hypertension; J44.9 Chronic obstructive pulmonary disease, unspecified
CPT/HCPCS: 36415; 80053; 83605; 85025; 85610; 85652; 86140; 87040; 93971; 99284

== ENCOUNTER 2019-06-07 15:47 | Inpatient (IN) | payer SELFPAY ==
--- NOTE | 2019-06-07 16:32 | ER Document Report ---
ED General - General Chief Complaint: Leg Pain Stated Complaint: RIGHT LEG PAIN Time Seen by Provider: 06/07/19 16:21 Primary Care Provider: TANISHA MICHELLE DO [Primary Care Provider] - Follow up as needed Notes: CHIEF COMPLAINT: Bilateral leg pain, difficulty walking, tachycardia HPI: 59-year-old female presenting to the emergency department with multiple complaints. Patient states that 10 days ago she began developing pain in the right knee. Patient states she has a history of factor V Leiden, does take blood thinners. Patient states that she did go to an outside emergency department and had an ultrasound of the right leg that showed a 5 cm Reeves's cyst behind the right knee. Patient states that this occurred approximately 6 days ago. Patient states that since that time she has been laying in the bed because she has such discomfort in the bilateral knees that she cannot walk. Patient has not had a definitive fever but has had chills. Patient has not had a cough. Patient states she is always short of breath. She denies abdominal pain. She does report decreased urination over the last several days but believes this is because of decreased oral intake, mild discomfort with urination. ROS: See HPI - all other systems were reviewed and are otherwise negative Constitutional: no fever Eyes: no drainage, no blurred vision ENT: no runny nose, no sore throat Cardiovascular: no chest pain, positive tachycardia Resp: + SOB, no cough GI: no vomiting, no diarrhea, no abdominal pain : + dysuria Integumentary: no rash Allergy: no hives Musculoskeletal: + extremity pain or swelling Neurological: no numbness/tingling, + generalized weakness MEDICATIONS: I agree with the patient medications as charted by the RN. ALLERGIES: I agree with the allergies as charted by the RN. PAST MEDICAL HISTORY/PAST SURGICAL HISTORY: Reviewed and agree as charted by RN. SOCIAL HISTORY: Reviewed and agree as charted by RN. FAMILY HISTORY: No significant familial comorbid conditions directly related to patient complaint EXAM: Reviewed vital signs as charted by RN. CONSTITUTIONAL: Alert and oriented and responds appropriately to questions. Chronically ill-appearing; well-nourished HEAD: Normocephalic; atraumatic EYES: PERRL; Conjunctivae clear, sclerae non-icteric ENT: normal nose; no rhinorrhea; dry mucous membranes; pharynx without lesions noted, no uvula edema or deviation, no tonsillar hypertrophy, phonation normal NECK: Supple without meningismus; non-tender; no cervical lymphadenopathy, no masses CARD: Tachycardic with heart rate 130 R; no murmurs, no clicks, no rubs, no gallops; symmetric distal pulses RESP: Normal chest excursion without splinting or tachypnea; breath sounds clear and equal bilaterally; no wheezes, no rhonchi, no rales, pulse oximetry ABD/GI: Normal bowel sounds; non-distended; soft, non-tender, no rebound, no guarding; no palpable organomegaly or masses. BACK: The back appears normal and is non-tender to palpation, there is no CVA tenderness EXT: Patient is able to bend both legs at the knees with some encouragement. There is tenderness on palpation over the anterior bilateral knees no definitive effusion no overlying erythema. There is no definitive or unilateral calf pain on palpation. SKIN: Normal color for age and race; warm; dry; poor turgor; no acute lesions noted NEURO: Moves all extremities equally; Motor and sensory function intact PSYCH: The patient's mood and manner are appropriate. Grooming and personal hygiene are appropriate. Patient is a poor historian MDM: 59-year-old female with factor V Leiden and hypertension history presenting for generalized weakness, generalized bilateral knee pain with inability to walk or get up from the bed over the last week. She reports decreased urination. She appears clinically dehydrated. Has dry mucous membranes poor skin turgor. Tachycardic with a heart rate of 130. She has a low-grade fever of 99.7. Patient is mildly hypotensive with a systolic pressure in the 90s. Have initiated sepsis labs, fluids and antibiotics. Patient has bilateral knee pain without overlying erythema or effusion that would suggest septic joint. Supposedly had an ultrasound of the right lower extremity 1 week ago that showed a Reeves's cyst behind the right knee TRAVEL OUTSIDE OF THE [place] IN LAST 30 DAYS: No - Related Data Allergies/Adverse Reactions: erythromycin base Allergy (Verified 10/11/16 11:10) morphine Allergy (Verified 10/11/16 11:10) tetracycline Allergy (Verified 10/11/16 11:10) Home Medications: lasix. lyrica Past Medical History - Social History Smoking Status: Unknown if Ever Smoked Family History: Reviewed & Not Pertinent Patient has suicidal ideation: No Patient has homicidal ideation: No - Past Medical History Cardiac Medical History: Reports: Hx Hypertension Pulmonary Medical History: Reports: Hx COPD Renal/ Medical History: Denies: Hx Peritoneal Dialysis Skin Medical History: Reports Hx MRSA Past Surgical History: Reports: Hx Orthopedic Surgery, Hx Tubal Ligation - Immunizations Hx Diphtheria, Pertussis, Tetanus Vaccination: Yes Physical Exam - Vital signs Vitals: Pulse Ox 99 06/07/19 15:47 Course - Re-evaluation Re-evalutation: 06/07/19 17:07 Received a call from the lab, patient's INR is greater than 8, they will send someone to redraw to recheck. I spoke with the patient. I had initially asked her if she was on blood thinners because of her factor V condition she states that she does take Coumadin but her INR was 4 6 days ago and she thought she had been holding her Coumadin since that time. She states that her puts her medications together so she is not specifically sure that she has not been taking Coumadin. 06/07/19 17:59 Notified by the lab that patient's lactic acid is 2.3. Still awaiting repeat of her INR. Patient's WBC count is 2.2. She is receiving IV fluids and antibiotics already per sepsis protocol 06/07/19 18:18 Patient noted to have an INR greater than 9. Discussed with Dr. Briones, attending. Oral vitamin K per up-to-date recommendations 06/07/19 18:33 Still awaiting urinalysis. Patient shows a mild elevation of her BUN and c reatinine over prior results suggesting dehydration which is likely why the lactic acid is mildly elevated. Chest x-ray did not show evidence of infiltrate. With the patient's INR being significantly high unlikely she has a PE. We will continue hydration. 06/07/19 19:19 Patient remains persistently tachycardic with a heart rate of 120 despite 2 L lactated Ringer's. She is neutropenic with a WBC count of 2.2. She has positive nitrites and a cath urine specimen, urine does smell foul. She has a positive lactate of 2.3. Elevated creatinine of 1.61 when her creatinine is usually normal. She has had the elevated INR of 9.63. She was given Rocephin here, was given vitamin K. Discussed with attending, will discuss with Dr. Cunha, hospitalist regarding admission. Patient does have improved coloration after IV fluids. 06/07/19 19:[address] Cunha, Hospitalist, will admit to telemetry - Vital Signs Vital signs: Temp Pulse Resp BP Pulse Ox 99.7 F 18 163/79 H 98 06/07/19 16:02 06/07/19 19:01 06/07/19 19:01 06/07/19 18:31 - Laboratory Result Diagrams: 06/07/19 16:28 06/07/19 17:25 Laboratory results interpreted by me: 06/07/19 06/07/19 06/07/19 16:28 16:53 16:53 WBC 2.2 L Hgb 11.2 L Hct 34.1 L MCH 26.9 L RDW 14.4 H Plt Count 540 H Seg Neuts % (Manual) 33 L Band Neutrophils % 2 L Monocytes % (Manual) 32 H Abs Neuts (Manual) 0.8 L PT INR VBG pCO2 67.7 H* VBG HCO3 35.4 H Sodium Chloride BUN Creatinine Est GFR ( Amer) Est GFR (MDRD) Non-Af Glucose Lactic Acid 2.3 H Direct Bilirubin AST Alkaline Phosphatase Total Protein Albumin Urine Protein Urine Blood Urine Nitrite Urine Urobilinogen 06/07/19 06/07/19 06/07/19 17:25 17:25 18:43 WBC Hgb Hct MCH RDW Plt Count Seg Neuts % (Manual) Band Neutrophils % Monocytes % (Manual) Abs Neuts (Manual) PT 80.8 H* INR 9.63 H* VBG pCO2 VBG HCO3 Sodium 134.7 L Chloride 92 L BUN 38 H Creatinine 1.61 H Est GFR ( Amer) 39 L Est GFR (MDRD) Non-Af 33 L Glucose 147 H Lactic Acid Direct Bilirubin 1.0 H AST 44 H Alkaline Phosphatase 242 H Total Protein 6.2 L Albumin 2.9 L Urine Protein 30 H Urine Blood SMALL H Urine Nitrite POSITIVE H Urine Urobilinogen 4.0 H Discharge - Discharge Clinical Impression: Urinary tract infection in female, Dehydration, Renal insufficiency, Hyperc oagulable state Sepsis Qualifiers: Severe sepsis acute organ dysfunction type: unspecified Severe sepsis shock status: unspecified Neutropenia Qualifiers: Neutropenia type: due to infection Qualified Code(s): D70.3 - Neutropenia due to infection Condition: Fair Disposition: ADMITTED INPATIENT Admitting Provider: Alphonse (Hospitalist) Unit Admitted: Telemetry Referrals: TANISHA MICHELLE DO [Primary Care Provider] - Follow up as needed
[2019-06-07] MEDS ORDERED: CEFTRIAXONE 1 GM/D5W RTU 1 GM/50 ML RTUPB IV ONE (16:34)
[2019-06-07 16:53] LABS: HEMATOCRIT 34.1 % (36.0-47.0); HEMOGLOBIN 11.2 g/dL (12.0-15.5); MEAN CORPUSCULAR HEMOGLOBIN 26.9 pg (27.0-33.4); MEAN CORPUSCULAR VOLUME 82 fl (80-97); PLATELET COUNT 540 10^3/uL (150-450); RED BLOOD COUNT 4.17 10^6/uL (3.72-5.28); RED CELL DISTRIBUTION WIDTH 14.4 % (11.5-14.0); WHITE BLOOD COUNT 2.2 10^3/uL (4.0-10.5)
[2019-06-07] MEDS: RINGERS SOLUTION,LACTATED 1,000 ML IV PRN ×2 (16:55→17:22)
[2019-06-07 17:26] LABS: VENOUS BLOOD BASE EXCESS 6.5 mmol/L; VENOUS BLOOD HCO3 35.4 mmol/L (20-32); VENOUS BLOOD PH 7.34 (7.30-7.42)
[2019-06-07 17:33] LABS: ABSOLUTE LYMPHOCYTES# (MANUAL) 0.7 10^3/uL (0.5-4.7); ABSOLUTE MONOCYTES # (MANUAL) 0.7 10^3/uL (0.1-1.4); ANISOCYTOSIS SLIGHT; BAND NEUTROPHILS % (MANUAL) 2 % (3-5); BASOPHILS % (MANUAL) 0 % (0-2); EOSINOPHILS % (MANUAL) 1 % (0-6); LYMPHOCYTES % (MANUAL) 32 % (13-45); SEGMENTED NEUTROPHILS % (MAN) 33 % (42-78); TOTAL CELLS COUNTED 100
[2019-06-07 17:34] LABS: MONOCYTES % (MANUAL) 32 % (3-13); PLATELET COMMENT INCREASED
[2019-06-07 17:38] LABS: VENOUS BLOOD PCO2 67.7 mmHg (35-63)
--- NOTE | 2019-06-07 17:46 | RADIOLOGY REPORT (SQ) ---
EXAM DESCRIPTION: CHEST SINGLE VIEW COMPLETED DATE/TIME: 06/07/2019 5:31 pm REASON FOR STUDY: cough COMPARISON: 04/13/2017 EXAM PARAMETERS: NUMBER OF VIEWS: One view. TECHNIQUE: Single frontal radiographic view of the chest acquired. RADIATION DOSE: NA LIMITATIONS: None. FINDINGS: LUNGS AND PLEURA: No opacities, masses or pneumothorax. No pleural effusion. MEDIASTINUM AND HILAR STRUCTURES: No masses. Contour normal. HEART AND VASCULAR STRUCTURES: Heart normal in size. Normal vasculature. BONES: No acute findings. HARDWARE: None in the chest. OTHER: No other significant finding. IMPRESSION: NO ACUTE RADIOGRAPHIC FINDING IN THE CHEST. TECHNICAL DOCUMENTATION: JOB ID: [id number] [employer]- All Rights Reserved Reading location - IP/workstation name: [email or web address]
[2019-06-07 17:59] LABS: INTERNATIONAL RATION (INR) 9.63; PROTHROMBIN TIME 80.8 SEC (11.4-15.4)
[2019-06-07] MEDS ORDERED: PHYTONADIONE 5 MG TABLET PO ONE (18:17)
[2019-06-07 18:25] LABS: ALBUMIN 2.9 g/dL (3.5-5.0); ALKALINE PHOSPHATASE 242 U/L (38-126); ANION GAP 14 (5-19); ASPARTATE AMINO TRANSFERASE 44 U/L (14-36); BILIRUBIN,TOTAL 1.3 mg/dL (0.2-1.3); BLOOD UREA NITROGEN 38 mg/dL (7-20); CALCIUM 9.8 mg/dL (8.4-10.2); CARBON DIOXIDE 29 mmol/L (22-30); CHLORIDE 92 mmol/L (98-107); CREATINE KINASE 70 U/L (30-135); GLUCOSE 147 mg/dL (75-110); POTASSIUM 4.1 mmol/L (3.6-5.0); TOTAL PROTEIN 6.2 g/dL (6.3-8.2)
[2019-06-07 18:30] LABS: CREATINE KINASE MB 0.72 ng/mL (<4.55)
[2019-06-07 18:31] LABS: TROPONIN I < 0.012 ng/mL
[2019-06-07 19:09] LABS: APPEARANCE,URINE SLIGHTLY-CLOUDY; BILIRUBIN,URINE NEGATIVE (NEGATIVE); COLOR,URINE AMBER; GLUCOSE, URINE NEGATIVE (NEGATIVE); KETONES,URINE NEGATIVE (NEGATIVE); LEUKOCYTE ESTERASE,URINE NEGATIVE (NEGATIVE); NITRITE,URINE POSITIVE (NEGATIVE); PROTEIN,URINE 30 mg/dL (NEGATIVE); URINE SPECIFIC GRAVITY 1.015
[2019-06-07] MEDS ORDERED: PROMETHAZINE HCL INJ 25 MG/1 ML VIAL IV PRN (20:58)
[2019-06-07] MEDS ORDERED: TEMAZEPAM 15 MG CAPSULE PO PRN (20:58)
[2019-06-07] MEDS ORDERED: LEVALBUTEROL HCL NEB 0.63 MG/3 ML AMPUL NEB PRN (20:58)
[2019-06-07] MEDS ORDERED: MAGNESIUM HYDROXIDE SUSP 30 ML UDCUP PO PRN (20:58)
[2019-06-07] MEDS ORDERED: MAG HYDROX/AL HYDROX/SIMETH SUSP 30 ML UDCUP PO PRN (20:58)
[2019-06-07] MEDS ORDERED: ACETAMINOPHEN 325 MG TABLET PO PRN (21:06)
[2019-06-07] MEDS ORDERED: LORAZEPAM INJ 2 MG/1 ML VIAL IV PRN (21:06)
[2019-06-07] MEDS ORDERED: HYDROMORPHONE HCL INJ/PF 2 MG/ML AMPULE IV PRN (21:08)
[2019-06-07] MEDS ORDERED: HEPARIN SOD (PORCINE) 5,000 UNIT/ML 1 ML VIAL SUBCUT SCH (22:00)
[2019-06-07] MEDS: DEXTROSE 5%-LACTATED RINGERS 1,000 ML IV PRN (22:59)
[2019-06-08] MEDS ORDERED: HYDROMORPHONE HCL INJ/PF 2 MG/ML AMPULE IV PRN ×2 (02:23→02:24)
--- NOTE | 2019-06-08 02:29 | PDOC H&P ---
History of Present Illness Admission Date/PCP: 06/07/19 19:45 TANISHA MICHELLE DO Patient complains of: Leg pain History of Present Illness: HONG SILVA is a 59 year old female who presented to the emergency room with a 10-day history of right knee pain. She admits the pain began 10 days ago and gradually worsened causing her to present to another ER where she was found to have a 5 cm Reeves's cyst in the right popliteal fossa. Her right knee pain is now a constant severe nonradiating aching pain made worse by any attempted weightbearing and movements. For the last week she has been unable to get out of bed because of the knee pain. She admits associated decrease in oral intake, generalized weakness, tachycardia, malaise, chills and an accompanying decrease in urination with mild dysuria. She denies other associated or accompanying signs and symptoms. She admits prior similar episodes associated with her factor V Leiden disease. She denies identification of any additional aggravating or ameliorating factors for her right knee pain. In the emergency room she was found to have a positive urine nitrite and a serum lactic acid of 2.3. Additionally she was noted to be initially hypotensive with a systolic blood pressure of 90 and a heart rate in the 130s to 140s. She has shown improvement with IV fluids. She was also noted to have an acute kidney injury and warfarin toxicity with an INR of 9.63. She was subsequently admitted to the hospital for further evaluation and treatment. Past Medical History Cardiac Medical History: Reports: Hypertension Denies: Atrial Fibrillation, Coronary Artery Disease, Hyperlipidema, Pulmo nary Embolism Pulmonary Medical History: Reports: Chronic Obstructive Pulmonary Disease (COPD) Denies: Asthma, Intubation, Respiratory Failure EENT Medical History: Denies: Cataracts, Ears - Hearing aids Neurological Medical History: Denies: Hemorrhagic CVA, Ischemic CVA, Seizures Endocrine Medical History: Denies: Diabetes Mellitus Type 1, Diabetes Mellitus Type 2, Hyperthyroidism, Hypothyroidism, Obesity Renal/ Medical History: Denies: Chronic Kidney Disease, Nephrolithiasis Malignancy Medical History: Reports: None GI Medical History: Denies: Cirrhosis, Crohn's Disease, Gastroesophageal Reflux Disease, Hepatitis, Peptic Ulcer Disease, Ulcerative Colitis Musculoskeltal Medical History: Denies: Arthritis, Gout Skin Medical History: Denies: Eczema, Psoriasis Psychiatric Medical History: Denies: Alcohol Dependency, Substance Abuse, Tobacco Dependency Traumatic Medical History: Reports: None Hematology: Reports: Other - Factor V Leiden disease Denies: Anemia, Bleeding Tendencies Infectious Medical History: Reports: Methicillin-Resistant Staph Aureus Past Surgical History Past Surgical History: Reports: Orthopedic Surgery, Tubal Ligation Social History Information Source: Patient Lives with: Spouse/Significant other Smoking Status: Never Smoker Electronic Cigarette use?: No Frequency of Alcohol Use: None Hx Recreational Drug Use: No Drugs: None Hx Prescription Drug Abuse: No - Advance Directive Resuscitation Status: Full Code Surrogate healthcare decision maker:: Adonay Silva Family History Family History: CAD, DM, Hypertension. denies: Malignancy Parental Family History Reviewed: Yes Children Family History Reviewed: No Sibling(s) Family History Reviewed.: Yes Medication/Allergy Home Medications: Hydrochlorothiazide [Hydrodiuril 12.5 mg Tablet] 12.5 mg PO DAILY 06/07/19 Irbesartan 300 mg PO DAILY 06/07/19 Prednisone [Deltasone 5 mg Tablet] 5 mg PO Q12 06/07/19 Allergies/Adverse Reactions: erythromycin base Allergy (Verified 10/11/16 11:10) morphine Allergy (Verified 10/11/16 11:10) sulfur dioxide Allergy (Verified 06/08/19 01:13) tetracycline Allergy (Verified 10/11/16 11:10) Review of Systems Constitutional: PRESENT: as per HPI, anorexia, chills, weakness. ABSENT: fever(s), headache(s) Eyes: ABSENT: visual disturbances, other - Eye pain Ears: ABSENT: hearing changes, other - Ear pain Nose, Mouth, and Throat: ABSENT: headache(s), mouth pain, sore throat Cardiovascular: PRESENT: dyspnea on exertion - Chronic, palpitations - Tachycardia. ABSENT: chest pain Respiratory: PRESENT: dyspnea - Chronic. ABSENT: cough Gastrointestinal: ABSENT: abdominal pain, constipation, diarrhea, nausea, vomiting Genitourinary: PRESENT: as per HPI, dysuria, other - Decreased urination. AB SENT: difficulty urinating, hematuria Musculoskeletal: PRESENT: as per HPI, joint swelling - Right knee Reeves's cyst, muscle weakness - Generalized, other - Right knee pain. ABSENT: back pain Integumentary: ABSENT: pruritus, rash Neurological: ABSENT: confusion, convulsions, focal weakness, memory loss, syncope Psychiatric: ABSENT: anxiety, depression Endocrine: ABSENT: cold intolerance, heat intolerance, polydipsia, polyuria Hematologic/Lymphatic: PRESENT: easy bleeding - On Coumadin, easy bruising - On Coumadin Allergic/Immunologic: ABSENT: seasonal rhinorrhea Physical Exam Vital Signs: Temp Pulse Resp BP Pulse Ox 99.7 F 16 149/86 H 97 06/07/19 16:02 06/07/19 20:01 06/07/19 20:01 06/07/19 19:30 Intake & Output 06/05/19 06/06/19 06/07/19 23:59 23:59 23:59 Intake Total 1500 Balance 1500 Weight 81.1 kg General appearance: PRESENT: no acute distress, cooperative Head exam: PRESENT: atraumatic, normocephalic Eye exam: PRESENT: conjunctiva pink. ABSENT: conjunctival injection, scleral icterus Ear exam: PRESENT: normal external ear exam. ABSENT: bleeding, drainage Mouth exam: PRESENT: dry mucosa, neck supple Neck exam: ABSENT: thyromegaly, tracheal deviation Respiratory exam: PRESENT: clear to auscultation daisy, symmetrical, unlabored Cardiovascular exam: PRESENT: RRR, tachycardia. ABSENT: clicks, gallop, rubs Pulses: PRESENT: normal radial pulses, normal dorsalis pedis pul Vascular exam: PRESENT: normal capillary refill. ABSENT: pallor GI/Abdominal exam: PRESENT: normal bowel sounds, soft Rectal exam: PRESENT: deferred Extremities exam: PRESENT: tenderness - Right knee with pain on palpation over Reeves's cyst in the popliteal fossa. Erythema and edema with local tenderness to palpation and movement noted in the right second, third and fourth fingers (when asked at exam the patient states that the symptoms have been present for 2 weeks).. ABSENT: pedal edema Musculoskeletal exam: ABSENT: deformity, dislocation Neurological exam: PRESENT: alert, oriented to person, oriented to place, oriented to time, oriented to situation, CN II-XII grossly intact. ABSENT: motor sensory deficit Psychiatric exam: PRESENT: appropriate affect, normal mood Skin exam: PRESENT: dry, intact, warm. ABSENT: jaundice, rash, urticaria Results Laboratory Results: 06/07/19 16:28 06/07/19 17:25 06/07/19 06/07/19 06/07/19 16:28 16:28 16:53 WBC 2.2 L RBC 4.17 Hgb 11.2 L Hct 34.1 L MCV 82 MCH 26.9 L MCHC 33.0 RDW 14.4 H Plt Count 540 H Seg Neutrophils % Not Reportable VBG pH VBG pCO2 VBG HCO3 VBG Base Excess Sodium Cancelled Potassium Cancelled Chloride Cancelled Carbon Dioxide Cancelled Anion Gap Cancelled BUN Cancelled Creatinine Cancelled Est GFR ( Amer) Cancelled Est GFR (Non-Af Amer) Cancelled Glucose Cancelled Lactic Acid Cancelled Calcium Cancelled Total Bilirubin Cancelled AST Cancelled Alkaline Phosphatase Cancelled Total Protein Cancelled Albumin Cancelled Urine Color Urine Appearance Urine pH Ur Specific [place] Urine Protein Urine Glucose (UA) Urine Ketones Urine Blood Urine Nitrite Ur Leukocyte Esterase Urine WBC (Auto) Urine RBC (Auto) 06/07/19 06/07/19 06/07/19 16:53 16:53 17:25 WBC RBC Hgb Hct MCV MCH MCHC RDW Plt Count Seg Neutrophils % VBG pH 7.34 VBG pCO2 67.7 H* VBG HCO3 35.4 H VBG Base Excess 6.5 Sodium 134.7 L Potassium 4.1 Chloride 92 L Carbon Dioxide 29 Anion Gap 14 BUN 38 H Creatinine 1.61 H Est GFR ( Amer) 39 L Est GFR (Non-Af Amer) Glucose 147 H Lactic Acid 2.3 H Calcium 9.8 Total Bilirubin 1.3 AST 44 H Alkaline Phosphatase 242 H Total Protein 6.2 L Albumin 2.9 L Urine Color Urine Appearance Urine pH Ur Specific [place] Urine Protein Urine Glucose (UA) Urine Ketones Urine Blood Urine Nitrite Ur Leukocyte Esterase Urine WBC (Auto) Urine RBC (Auto) 06/07/19 18:43 WBC RBC Hgb Hct MCV MCH MCHC RDW Plt Count Seg Neutrophils % VBG pH VBG pCO2 VBG HCO3 VBG Base Excess Sodium Potassium Chloride Carbon Dioxide Anion Gap BUN Creatinine Est GFR ( Amer) Est GFR (Non-Af Amer) Glucose Lactic Acid Calcium Total Bilirubin AST Alkaline Phosphatase Total Protein Albumin Urine Color [place] Urine Appearance SLIGHTLY-CLOUDY Urine pH 5.0 Ur Specific [place] 1.015 Urine Protein 30 H Urine Glucose (UA) NEGATIVE Urine Ketones NEGATIVE Urine Blood SMALL H Urine Nitrite POSITIVE H Ur Leukocyte Esterase NEGATIVE Urine WBC (Auto) 5 Urine RBC (Auto) 1 06/07/19 06/07/19 06/07/19 16:28 16:28 17:25 Creatine Kinase Cancelled 70 CK-MB (CK-2) Cancelled Troponin I Cancelled 06/07/19 17:25 Creatine Kinase CK-MB (CK-2) 0.72 Troponin I < 0.012 Impressions: Chest X-Ray 06/07/19 16:33 IMPRESSION: NO ACUTE RADIOGRAPHIC FINDING IN THE CHEST. Assessment and Plan - Diagnosis (1) SIRS (systemic inflammatory response syndrome) Is this a current diagnosis for this admission?: Yes (2) YARELY (acute kidney injury) Is this a current diagnosis for this admission?: Yes (3) Leukopenia Qualifiers: Leukopenia type: neutropenia Neutropenia type: unspecified Qualified Code(s): D70.9 - Neutropenia, unspecified Is this a current diagnosis for this admission?: Yes (4) Thrombocytosis Is this a current diagnosis for this admission?: Yes (5) Swelling of finger of right hand Is this a current diagnosis for this admission?: Yes (6) Right knee pain Qualifiers: Chronicity: acute Qualified Code(s): M25.561 - Pain in right knee Is this a current diagnosis for this admission?: Yes (7) Generalized weakness Is this a current diagnosis for this admission?: Yes (8) Urinary tract infection in female Is this a current diagnosis for this admission?: Yes (9) Factor V Leiden Is this a current diagnosis for this admission?: Yes (10) Tachycardia Is this a current diagnosis for this admission?: Yes - Plan Summary Summary: Patient will be admitted to the medical floor in a telemetry bed for routine supportive and symptomatic cares. She will be treated with IV fluids and mo nitored closely. Cultures obtained in the ER are pending. She will receive morphine sulfate 2 to 4 mg IV every 2 hours as needed for pain. She will receive Ativan 1 mg IV every 4 hours as needed anxiety or restlessness. An orthopedic consultation will be obtained with Dr. Rivera. A hematology c onsultation will be obtained with Dr. Malone. The patient's CBC, metabolic profile, magnesium level, INR and lactic acid levels will be obtained at appropriate intervals. Due to the patient's tenderness with erythema and edema in the right second, third and fourth fingers and her history of MRSA infections in her hands in the past, she has been started empirically on linezolid 600 mg IV every 12 hours. - Time Time Spent with patient: 15-24 minutes Medications reviewed and adjusted accordingly: Yes Anticipated discharge: Home with Homehealth - Inpatient Certification Based on my medical assessment, after consideration of the patient's comorbidities, presenting symptoms, or acuity I expect that the services needed warrant INPATIENT care.: Yes I certify that my determination is in accordance with my understanding of Medicare's requirements for reasonable and necessary INPATIENT services [42 CFR 412.3e].: Yes Medical Necessity: Need Close Monitoring Due to Risk of Patient Decompensation, Need For IV Fluids, Need for Pain Control, Need for IV Antibiotics, Risk of Complication if Not Cared For in Hospital
[2019-06-08] MEDS ORDERED: LINEZOLID 600 MG/300 ML RTUPB IV ONE ×4 (02:30→07:00)
[2019-06-08] MEDS: DEXTROSE 5%-LACTATED RINGERS 1,000 ML IV PRN ×4 (03:24→21:19)
[2019-06-08 05:36] LABS: HEMATOCRIT 25.9 % (36.0-47.0); MEAN CORPUSCULAR HEMOGLOBIN 27.6 pg (27.0-33.4); MEAN CORPUSCULAR HGB CONC 34.4 g/dL (32.0-36.0); MEAN CORPUSCULAR VOLUME 80 fl (80-97); PLATELET COUNT 402 10^3/uL (150-450); RED BLOOD COUNT 3.23 10^6/uL (3.72-5.28); RED CELL DISTRIBUTION WIDTH 14.1 % (11.5-14.0)
[2019-06-08 05:38] LABS: HEMOGLOBIN 8.9 g/dL (12.0-15.5)
[2019-06-08 05:51] LABS: ABSOLUTE LYMPHOCYTES# (MANUAL) 0.4 10^3/uL (0.5-4.7); ABSOLUTE MONOCYTES # (MANUAL) 0.7 10^3/uL (0.1-1.4); BAND NEUTROPHILS % (MANUAL) 2 % (3-5); BASOPHILS % (MANUAL) 0 % (0-2); EOSINOPHILS % (MANUAL) 0 % (0-6); LYMPHOCYTES % (MANUAL) 18 % (13-45); MONOCYTES % (MANUAL) 34 % (3-13); NUCLEATED RED BLOOD CELLS 2 /100 WBC (0); SEGMENTED NEUTROPHILS % (MAN) 46 % (42-78); TOTAL CELLS COUNTED 50
[2019-06-08 05:52] LABS: PLATELET COMMENT ADEQUATE; RBC MORPHOLOGY COMMENT NORMO-CYTIC/CHROMIC
[2019-06-08 05:53] LABS: INTERNATIONAL RATION (INR) 1.86; PROTHROMBIN TIME 21.7 SEC (11.4-15.4)
[2019-06-08 05:59] LABS: ALBUMIN 2.4 g/dL (3.5-5.0); ALKALINE PHOSPHATASE 193 U/L (38-126); ANION GAP 11 (5-19); ASPARTATE AMINO TRANSFERASE 34 U/L (14-36); BILIRUBIN,DIRECT 0.5 mg/dL (0.0-0.4); BILIRUBIN,TOTAL 1.3 mg/dL (0.2-1.3); BLOOD UREA NITROGEN 24 mg/dL (7-20); CALCIUM 9.2 mg/dL (8.4-10.2); CARBON DIOXIDE 32 mmol/L (22-30); CHLORIDE 95 mmol/L (98-107); GLUCOSE 221 mg/dL (75-110); POTASSIUM 3.5 mmol/L (3.6-5.0)
[2019-06-08] MEDS: PANTOPRAZOLE SODIUM 40 MG TABLET.DR PO SCH (06:08)
--- NOTE | 2019-06-08 07:38 | EKG REPORT ---
SEVERITY:- OTHERWISE NORMAL ECG - SINUS TACHYCARDIA : Confirmed by: Diogenes Barajas MD 08-Jun-2019 07:37:53
--- NOTE | 2019-06-08 07:58 | PDOC CONSULTATION ---
Consultation Consult Date: 06/08/19 Provider Consulted: JYOTI MTZ Consult reason:: Hematology/Oncology consultation was requested for patient with Factor V Leiden on coumadin History of Present Illness Admission Date/PCP: 06/07/19 19:45 TANISHA SALGADO DO History of Present Illness: HONG SILVA is a 59 year old female. She is a very poor historian, but states that she has Factor V Leiden disorder and was diagnosed with her first blood clot about a year ago. She has been on coumadin as she is unable to afford any other medications and has her INR checked by Dr. Salgado, her PCP. She states that she had stopped taking her coumadin for about a week, as she had been having increased weakness and pain in her legs. She presented to the ED, was found to have a Bakers' Cyst, UTI, and INR of 9. No evidence of acute DVT. Her coumadin was placed on hold and she was given a dose of Vit K 5 mg yesterday. Today, she has no evidence of bleeding and her INR is 1.86. Past Medical History Cardiac Medical History: Reports: Hypertension Denies: Atrial Fibrillation, Coronary Artery Disease, Hyperlipidema, Pulmonary Embolism Pulmonary Medical History: Reports: Chronic Obstructive Pulmonary Disease (COPD) Denies: Asthma, Intubation, Respiratory Failure EENT Medical History: Reports: Other - Factor V Leiden disease Denies: Cataracts, Ears - Hearing aids Neurological Medical History: Denies: Hemorrhagic CVA, Ischemic CVA, Seizures Endocrine Medical History: Denies: Diabetes Mellitus Type 1, Diabetes Mellitus Type 2, Hyperthyroidism, Hypothyroidism, Obesity Renal/ Medical History: Denies: Chronic Kidney Disease, Nephrolithiasis Malignancy Medical History: Reports: None GI Medical History: Denies: Cirrhosis, Crohn's Disease, Gastroesophageal Reflux Disease, Hepatitis, Peptic Ulcer Disease, Ulcerative Colitis Musculoskeltal Medical History: Denies: Arthritis, Gout Skin Medical History: Denies: Eczema, Psoriasis Psychiatric Medical History: Denies: Alcohol Dependency, Substance Abuse, Tobacco Dependency Traumatic Medical History: Reports: None Hematology: Reports: Other - Factor V Leiden disease Denies: Anemia, Bleeding Tendencies Infectious Medical History: Reports: Methicillin-Resistant Staph Aureus Past Surgical History Past Surgical History: Reports: Orthopedic Surgery, Tubal Ligation Social History Lives with: Spouse/Significant other Smoking Status: Never Smoker Electronic Cigarette use?: No Frequency of Alcohol Use: None Hx Recreational Drug Use: No Drugs: None Hx Prescription Drug Abuse: No Past Social History Note: 7 children - Advance Directive Resuscitation Status: Full Code Family History Family History: CAD, DM, Hypertension. denies: Malignancy Parental Family History Reviewed: Yes Children Family History Reviewed: No Sibling(s) Family History Reviewed.: Yes Medication/Allergy Home Medications: Hydrochlorothiazide [Hydrodiuril 12.5 mg Tablet] 12.5 mg PO DAILY 06/07/19 Irbesartan 300 mg PO DAILY 06/07/19 Prednisone [Deltasone 5 mg Tablet] 5 mg PO Q12 06/07/19 Allergies/Adverse Reactions: erythromycin base Allergy (Verified 10/11/16 11:10) morphine Allergy (Verified 10/11/16 11:10) sulfur dioxide Allergy (Verified 06/08/19 01:13) tetracycline Allergy (Verified 10/11/16 11:10) Review of Systems Constitutional: ABSENT: fever(s), headache(s) Eyes: ABSENT: visual disturbances Ears: ABSENT: hearing changes Nose, Mouth, and Throat: ABSENT: sore throat Cardiovascular: ABSENT: chest pain Respiratory: PRESENT: dyspnea Gastrointestinal: ABSENT: constipation, nausea Genitourinary: PRESENT: difficulty urinating Musculoskeletal: PRESENT: joint swelling, muscle weakness Integumentary: ABSENT: rash Neurological: PRESENT: weakness Hematologic/Lymphatic: ABSENT: easy bleeding Physical Exam Vital Signs: Temp Pulse Resp BP Pulse Ox 100.0 F 121 H 16 99/48 L 92 06/08/19 03:36 06/08/19 03:36 06/08/19 03:36 06/08/19 03:36 06/08/19 03:36 Intake & Output 06/07/19 06/08/19 06/09/19 06:59 06:59 06:59 Intake Total 3020 Output Total 400 Balance 2620 Weight 81.5 kg General appearance: PRESENT: no acute distress, well-developed, well-nourished Exam: 59 year old female. Awake, but only answers brief questions. Head exam: PRESENT: atraumatic Mouth exam: PRESENT: tongue midline Neck exam: ABSENT: lymphadenopathy, tenderness Respiratory exam: PRESENT: clear to auscultation daisy, unlabored Cardiovascular exam: PRESENT: tachycardia GI/Abdominal exam: PRESENT: normal bowel sounds, soft. ABSENT: tenderness Extremities exam: ABSENT: pedal edema Musculoskeletal exam: PRESENT: full ROM Neurological exam: PRESENT: alert, awake Psychiatric exam: PRESENT: appropriate affect Skin exam: PRESENT: normal color Results Laboratory Results: 06/08/19 05:14 06/08/19 05:14 06/07/19 06/07/19 06/07/19 16:28 16:28 16:53 WBC 2.2 L RBC 4.17 Hgb 11.2 L Hct 34.1 L MCV 82 MCH 26.9 L MCHC 33.0 RDW 14.4 H Plt Count 540 H Seg Neutrophils % Not Reportable VBG pH VBG pCO2 VBG HCO3 VBG Base Excess Sodium Cancelled Potassium Cancelled Chloride Cancelled Carbon Dioxide Cancelled Anion Gap Cancelled BUN Cancelled Creatinine Cancelled Est GFR ( Amer) Cancelled Est GFR (Non-Af Amer) Cancelled Glucose Cancelled Lactic Acid Cancelled Calcium Cancelled Magnesium Total Bilirubin Cancelled AST Cancelled Alkaline Phosphatase Cancelled Total Protein Cancelled Albumin Cancelled TSH Urine Color Urine Appearance Urine pH Ur Specific [place] Urine Protein Urine Glucose (UA) Urine Ketones Urine Blood Urine Nitrite Ur Leukocyte Esterase Urine WBC (Auto) Urine RBC (Auto) 06/07/19 06/07/19 06/07/19 16:53 16:53 17:25 WBC RBC Hgb Hct MCV MCH MCHC RDW Plt Count Seg Neutrophils % VBG pH 7.34 VBG pCO2 67.7 H* VBG HCO3 35.4 H VBG Base Excess 6.5 Sodium 134.7 L Potassium 4.1 Chloride 92 L Carbon Dioxide 29 Anion Gap 14 BUN 38 H Creatinine 1.61 H Est GFR ( Amer) 39 L Est GFR (Non-Af Amer) Glucose 147 H Lactic Acid 2.3 H Calcium 9.8 Magnesium Total Bilirubin 1.3 AST 44 H Alkaline Phosphatase 242 H Total Protein 6.2 L Albumin 2.9 L TSH Urine Color Urine Appearance Urine pH Ur Specific [place] Urine Protein Urine Glucose (UA) Urine Ketones Urine Blood Urine Nitrite Ur Leukocyte Esterase Urine WBC (Auto) Urine RBC (Auto) 06/07/19 06/07/19 06/07/19 17:25 18:43 21:20 WBC RBC Hgb Hct MCV MCH MCHC RDW Plt Count Seg Neutrophils % VBG pH VBG pCO2 VBG HCO3 VBG Base Excess Sodium Potassium Chloride Carbon Dioxide Anion Gap BUN Creatinine Est GFR ( Amer) Est GFR (Non-Af Amer) Glucose Lactic Acid 1.0 Calcium Magnesium Total Bilirubin AST Alkaline Phosphatase Total Protein Albumin TSH 1.47 Urine Color [place] Urine Appearance SLIGHTLY-CLOUDY Urine pH 5.0 Ur Specific [place] 1.015 Urine Protein 30 H Urine Glucose (UA) NEGATIVE Urine Ketones NEGATIVE Urine Blood SMALL H Urine Nitrite POSITIVE H Ur Leukocyte Esterase NEGATIVE Urine WBC (Auto) 5 Urine RBC (Auto) 1 06/08/19 06/08/19 06/08/19 00:42 05:14 05:14 WBC 2.0 L RBC 3.23 L Hgb 8.9 L D Hct 25.9 L MCV 80 MCH 27.6 MCHC 34.4 RDW 14.1 H Plt Count 402 Seg Neutrophils % Not Reportable VBG pH VBG pCO2 VBG HCO3 VBG Base Excess Sodium Potassium Chloride Carbon Dioxide Anion Gap BUN Creatinine Est GFR ( Amer) Est GFR (Non-Af Amer) Glucose Lactic Acid 1.3 1.2 Calcium Magnesium Total Bilirubin AST Alkaline Phosphatase Total Protein Albumin TSH Urine Color Urine Appearance Urine pH Ur Specific [place] Urine Protein Urine Glucose (UA) Urine Ketones Urine Blood Urine Nitrite Ur Leukocyte Esterase Urine WBC (Auto) Urine RBC (Auto) 06/08/19 05:14 WBC RBC Hgb Hct MCV MCH MCHC RDW Plt Count Seg Neutrophils % VBG pH VBG pCO2 VBG HCO3 VBG Base Excess Sodium 137.5 Potassium 3.5 L Chloride 95 L Carbon Dioxide 32 H Anion Gap 11 BUN 24 H Creatinine 1.03 Est GFR ( Amer) > 60 Est GFR (Non-Af Amer) Glucose 221 H Lactic Acid Calcium 9.2 Magnesium 1.5 L Total Bilirubin 1.3 AST 34 Alkaline Phosphatase 193 H Total Protein 5.0 L Albumin 2.4 L TSH Urine Color Urine Appearance Urine pH Ur Specific [place] Urine Protein Urine Glucose (UA) Urine Ketones Urine Blood Urine Nitrite Ur Leukocyte Esterase Urine WBC (Auto) Urine RBC (Auto) 06/07/19 06/07/19 06/07/19 16:28 16:28 17:25 Creatine Kinase Cancelled 70 CK-MB (CK-2) Cancelled Troponin I Cancelled 06/07/19 17:25 Creatine Kinase CK-MB (CK-2) 0.72 Troponin I < 0.012 Impressions: Chest X-Ray 06/07/19 16:33 IMPRESSION: NO ACUTE RADIOGRAPHIC FINDING IN THE CHEST. Assessment & Plan - Diagnosis (1) Urinary tract infection in female Is this a current diagnosis for this admission?: Yes Plan: On appropriate antibiotics. (2) Factor V Leiden Is this a current diagnosis for this admission?: Yes Plan: Her INR today is <2. We discussed the fact that INR levels may vary, especially during acute infections and due to medications like antibiotics. Goal INR is 2- 3. I would cover with Lovenox 1 mg/kg sc BID and restart coumadin. It may take several days for INR to come up after dose of Vit K. (3) Neutropenia Qualifiers: Neutropenia type: due to infection Qualified Code(s): D70.3 - Neutropenia due to infection Is this a current diagnosis for this admission?: Yes Plan: ANC is improving. Neutropenic precautions in place. - Plan Summary Plan Summary: I will be happy to continue to follow her. I will start the Lovenox. Please call with any concerns.
[2019-06-08] MEDS: METOPROLOL TARTRATE PF/INJ 5 MG/5 ML SDV IV PRN (08:17)
[2019-06-08] MEDS: ENOXAPARIN SODIUM INJ 80 MG/0.8 ML DISP.SYRIN SUBCUT SCH ×2 (09:08→21:19)
[2019-06-08] MEDS: DOCUSATE SODIUM 100 MG CAPSULE PO SCH ×2 (09:09→17:03)
--- NOTE | 2019-06-08 11:37 | RADIOLOGY REPORT (SQ) ---
EXAM DESCRIPTION: KNEE RIGHT 3 VIEWS COMPLETED DATE/TIME: 06/08/2019 11:24 am REASON FOR STUDY: pain COMPARISON: None. NUMBER OF VIEWS: Three views. TECHNIQUE: AP, lateral, and sunrise patella radiographic images acquired of the right knee. LIMITATIONS: None. FINDINGS: MINERALIZATION: Normal. BONES: No acute fracture or dislocation. No worrisome bone lesions. No significant osteophytes. JOINT: Suprapatellar effusion. No chondrocalcinosis. OTHER: No other significant finding. IMPRESSION: JOINT EFFUSION. NO BONY FINDINGS. TECHNICAL DOCUMENTATION: JOB ID: [id number]- All Rights Reserved Reading location - IP/workstation name: [email or web address]
[2019-06-08 11:44] LABS: PATH REVIEW PATHOLOGIST REVIEWED
[2019-06-08 11:45] LABS: PATH REVIEW PATHOLOGIST REVIEWED
--- NOTE | 2019-06-08 15:05 | PDOC PROGRESS REPORT ---
Subjective Progress Note for:: 06/08/19 Reason For Visit: ACUTE KIDNEY INJURY,GENERALIZED WEAKNESS Physical Exam Vital Signs: Temp Pulse Resp BP Pulse Ox 99.3 F 114 H 18 122/73 97 06/08/19 11:02 06/08/19 11:02 06/08/19 11:02 06/08/19 11:02 06/08/19 11:02 Intake & Output 06/07/19 06/08/19 06/09/19 06:59 06:59 06:59 Intake Total 3020 2300 Output Total 400 400 Balance 2620 1900 Weight 179 lb 10.828 oz Results Laboratory Results: 06/08/19 05:14 06/08/19 05:14 06/07/19 06/07/19 06/07/19 16:28 16:28 16:53 WBC 2.2 L RBC 4.17 Hgb 11.2 L Hct 34.1 L MCV 82 MCH 26.9 L MCHC 33.0 RDW 14.4 H Plt Count 540 H Seg Neutrophils % Not Reportable VBG pH VBG pCO2 VBG HCO3 VBG Base Excess Sodium Cancelled Potassium Cancelled Chloride Cancelled Carbon Dioxide Cancelled Anion Gap Cancelled BUN Cancelled Creatinine Cancelled Est GFR ( Amer) Cancelled Est GFR (Non-Af Amer) Cancelled Glucose Cancelled Lactic Acid Cancelled Calcium Cancelled Magnesium Total Bilirubin Cancelled AST Cancelled Alkaline Phosphatase Cancelled Total Protein Cancelled Albumin Cancelled TSH Urine Color Urine Appearance Urine pH Ur Specific [place] Urine Protein Urine Glucose (UA) Urine Ketones Urine Blood Urine Nitrite Ur Leukocyte Esterase Urine WBC (Auto) Urine RBC (Auto) 06/07/19 06/07/19 06/07/19 16:53 16:53 17:25 WBC RBC Hgb Hct MCV MCH MCHC RDW Plt Count Seg Neutrophils % VBG pH 7.34 VBG pCO2 67.7 H* VBG HCO3 35.4 H VBG Base Excess 6.5 Sodium 134.7 L Potassium 4.1 Chloride 92 L Carbon Dioxide 29 Anion Gap 14 BUN 38 H Creatinine 1.61 H Est GFR ( Amer) 39 L Est GFR (Non-Af Amer) Glucose 147 H Lactic Acid 2.3 H Calcium 9.8 Magnesium Total Bilirubin 1.3 AST 44 H Alkaline Phosphatase 242 H Total Protein 6.2 L Albumin 2.9 L TSH Urine Color Urine Appearance Urine pH Ur Specific [place] Urine Protein Urine Glucose (UA) Urine Ketones Urine Blood Urine Nitrite Ur Leukocyte Esterase Urine WBC (Auto) Urine RBC (Auto) 06/07/19 06/07/19 06/07/19 17:25 18:43 21:20 WBC RBC Hgb Hct MCV MCH MCHC RDW Plt Count Seg Neutrophils % VBG pH VBG pCO2 VBG HCO3 VBG Base Excess Sodium Potassium Chloride Carbon Dioxide Anion Gap BUN Creatinine Est GFR ( Amer) Est GFR (Non-Af Amer) Glucose Lactic Acid 1.0 Calcium Magnesium Total Bilirubin AST Alkaline Phosphatase Total Protein Albumin TSH 1.47 Urine Color [place] Urine Appearance SLIGHTLY-CLOUDY Urine pH 5.0 Ur Specific [place] 1.015 Urine Protein 30 H Urine Glucose (UA) NEGATIVE Urine Ketones NEGATIVE Urine Blood SMALL H Urine Nitrite POSITIVE H Ur Leukocyte Esterase NEGATIVE Urine WBC (Auto) 5 Urine RBC (Auto) 1 06/08/19 06/08/19 06/08/19 00:42 05:14 05:14 WBC 2.0 L RBC 3.23 L Hgb 8.9 L D Hct 25.9 L MCV 80 MCH 27.6 MCHC 34.4 RDW 14.1 H Plt Count 402 Seg Neutrophils % Not Reportable VBG pH VBG pCO2 VBG HCO3 VBG Base Excess Sodium Potassium Chloride Carbon Dioxide Anion Gap BUN Creatinine Est GFR ( Amer) Est GFR (Non-Af Amer) Glucose Lactic Acid 1.3 1.2 Calcium Magnesium Total Bilirubin AST Alkaline Phosphatase Total Protein Albumin TSH Urine Color Urine Appearance Urine pH Ur Specific [place] Urine Protein Urine Glucose (UA) Urine Ketones Urine Blood Urine Nitrite Ur Leukocyte Esterase Urine WBC (Auto) Urine RBC (Auto) 06/08/19 05:14 WBC RBC Hgb Hct MCV MCH MCHC RDW Plt Count Seg Neutrophils % VBG pH VBG pCO2 VBG HCO3 VBG Base Excess Sodium 137.5 Potassium 3.5 L Chloride 95 L Carbon Dioxide 32 H Anion Gap 11 BUN 24 H Creatinine 1.03 Est GFR ( Amer) > 60 Est GFR (Non-Af Amer) Glucose 221 H Lactic Acid Calcium 9.2 Magnesium 1.5 L Total Bilirubin 1.3 AST 34 Alkaline Phosphatase 193 H Total Protein 5.0 L Albumin 2.4 L TSH Urine Color Urine Appearance Urine pH Ur Specific [place] Urine Protein Urine Glucose (UA) Urine Ketones Urine Blood Urine Nitrite Ur Leukocyte Esterase Urine WBC (Auto) Urine RBC (Auto) 06/07/19 06/07/19 06/07/19 16:28 16:28 17:25 Creatine Kinase Cancelled 70 CK-MB (CK-2) Cancelled Troponin I Cancelled 06/07/19 17:25 Creatine Kinase CK-MB (CK-2) 0.72 Troponin I < 0.012 Impressions: Chest X-Ray 06/07/19 16:33 IMPRESSION: NO ACUTE RADIOGRAPHIC FINDING IN THE CHEST. Knee X-Ray 06/08/19 00:00 IMPRESSION: JOINT EFFUSION. NO BONY FINDINGS. Assessment and Plan - Diagnosis (1) YARELY (acute kidney injury) Is this a current diagnosis for this admission?: Yes Plan: Continue IV fluids and monitored closely. (2) Neutropenia Qualifiers: Neutropenia type: due to infection Qualified Code(s): D70.3 - Neutropenia due to infection Is this a current diagnosis for this admission?: Yes Plan: Neutropenic precautions. Hematology is following. (3) Sepsis Qualifiers: Severe sepsis acute organ dysfunction type: unspecified Severe sepsis shock status: unspecified Is this a current diagnosis for this admission?: Yes Plan: Cultures obtained in the ER are pending. She was started empirically on ceftriaxone and linezolid. (4) Swelling of finger of right hand Is this a current diagnosis for this admission?: Yes Plan: Antibiotics as above. Check chest x-ray. (5) Thrombocytosis Is this a current diagnosis for this admission?: Yes Plan: Resolved (6) Urinary tract infection in female Is this a current diagnosis for this admission?: Yes Plan: Empirically on ceftriaxone (7) Generalized weakness Is this a current diagnosis for this admission?: Yes Plan: PT evaluation (8) Hypercoagulable state Is this a current diagnosis for this admission?: Yes Plan: Started Lovenox and restarting Coumadin per hematology. Monitor INR (9) Right knee pain Qualifiers: Chronicity: acute Qualified Code(s): M25.561 - Pain in right knee Is this a current diagnosis for this admission?: Yes Plan: X-ray showed effusion. May need arthrocentesis. (10) Tachycardia Is this a current diagnosis for this admission?: Yes Plan: Improved (11) Factor V Leiden Is this a current diagnosis for this admission?: Yes Plan: Lovenox and Coumadin as above
[2019-06-08] MEDS: PROMETHAZINE HCL INJ 25 MG/1 ML VIAL IV PRN (15:14)
--- NOTE | 2019-06-08 15:30 | RADIOLOGY REPORT (SQ) ---
EXAM DESCRIPTION: HAND RIGHT 3 VIEWS COMPLETED DATE/TIME: 06/08/2019 3:20 pm REASON FOR STUDY: infection COMPARISON: None. EXAM PARAMETERS: NUMBER OF VIEWS: Three views. TECHNIQUE: AP, lateral and oblique radiographic images acquired of the right hand. LIMITATIONS: None. FINDINGS: MINERALIZATION: Normal. BONES: No acute fracture or dislocation. No worrisome bone lesions. Mild degenerative changes in the DIP joints of the fingers. JOINTS: No erosions. No kena-articular osteopenia. No chondrocalcinosis. SOFT TISSUES: No swelling. No calcifications. OTHER: No other significant finding. IMPRESSION: MILD DEGENERATIVE CHANGES IN THE DIP JOINTS. NO ACUTE FINDINGS. TECHNICAL DOCUMENTATION: JOB ID: [id number] [employer]- All Rights Reserved Reading location - IP/workstation name: [email or web address]
[2019-06-08 16:07] LABS: ANION GAP 7 (5-19); BLOOD UREA NITROGEN 15 mg/dL (7-20); CALCIUM 9.2 mg/dL (8.4-10.2); CARBON DIOXIDE 32 mmol/L (22-30); CHLORIDE 97 mmol/L (98-107); GLUCOSE 229 mg/dL (75-110); POTASSIUM 3.4 mmol/L (3.6-5.0)
[2019-06-08] MEDS ORDERED: TRIAMCINOLONE ACETONIDE INJ 40 MG/1 ML VIAL INJ ONE (17:00)
[2019-06-08] MEDS: CEFTRIAXONE 1 GM/D5W RTU 1 GM/50 ML RTUPB IV SCH (17:13)
[2019-06-08] MEDS: LINEZOLID 600 MG/300 ML RTUPB IV SCH (17:16)
--- NOTE | 2019-06-08 19:15 | PDOC CONSULTATION ---
Consultation Consult Date: 06/08/19 Attending physician:: CELIA MORIN Provider Consulted: ESPERANZA GILLIS Consult reason:: Right knee pain History of Present Illness Admission Date/PCP: 06/07/19 19:45 TANISHA MICHELLE DO History of Present Illness: HONG SILVA is a 59 year old female admitted to the hospitalist with urosepsis and acute renal failure. She states that she has had a 10-day history of bilateral knee pain, right worse than left. She denies any specific trauma. She relates that she had been seen for knee pain in the emergency room at [facility]. She states that they found a Reeves's cyst. Past Medical History Cardiac Medical History: Reports: Hypertension Denies: Atrial Fibrillation, Coronary Artery Disease, Hyperlipidema, Pulmonary Embolism Pulmonary Medical History: Reports: Chronic Obstructive Pulmonary Disease (COPD) Denies: Asthma, Intubation, Respiratory Failure EENT Medical History: Reports: Other - Factor V Leiden disease Denies: Cataracts, Ears - Hearing aids Neurological Medical History: Denies: Hemorrhagic CVA, Ischemic CVA, Seizures Endocrine Medical History: Denies: Diabetes Mellitus Type 1, Diabetes Mellitus Type 2, Hyperthyroidism, Hypothyroidism, Obesity Renal/ Medical History: Denies: Chronic Kidney Disease, Nephrolithiasis Malignancy Medical History: Reports: None GI Medical History: Denies: Cirrhosis, Crohn's Disease, Gastroesophageal Reflux Disease, Hepatitis, Peptic Ulcer Disease, Ulcerative Colitis Musculoskeltal Medical History: Denies: Arthritis, Gout Skin Medical History: Denies: Eczema, Psoriasis Psychiatric Medical History: Denies: Alcohol Dependency, Substance Abuse, Tobacco Dependency Traumatic Medical History: Reports: None Hematology: Reports: Other - Factor V Leiden disease Denies: Anemia, Bleeding Tendencies Infectious Medical History: Reports: Methicillin-Resistant Staph Aureus Past Surgical History Past Surgical History: Reports: Orthopedic Surgery, Tubal Ligation Social History Lives with: Spouse/Significant other Smoking Status: Never Smoker Electronic Cigarette use?: No Frequency of Alcohol Use: None Hx Recreational Drug Use: No Drugs: None Hx Prescription Drug Abuse: No - Advance Directive Resuscitation Status: Full Code Family History Family History: CAD, DM, Hypertension. denies: Malignancy Parental Family History Reviewed: Yes Children Family History Reviewed: No Sibling(s) Family History Reviewed.: Yes Medication/Allergy Home Medications: Hydrochlorothiazide [Hydrodiuril 12.5 mg Tablet] 12.5 mg PO DAILY 06/07/19 Irbesartan 300 mg PO DAILY 06/07/19 Prednisone [Deltasone 5 mg Tablet] 5 mg PO Q12 06/07/19 Allergies/Adverse Reactions: erythromycin base Allergy (Verified 10/11/16 11:10) morphine Allergy (Verified 10/11/16 11:10) sulfur dioxide Allergy (Verified 06/08/19 01:13) tetracycline Allergy (Verified 10/11/16 11:10) Review of Systems Constitutional: PRESENT: as per HPI Eyes: ABSENT: visual disturbances Cardiovascular: ABSENT: chest pain, dyspnea on exertion, edema, orthropnea, palpitations Respiratory: ABSENT: cough, hemoptysis Gastrointestinal: ABSENT: abdominal pain, constipation, diarrhea, hematemesis, hematochezia, nausea, vomiting Genitourinary: PRESENT: as per HPI Musculoskeletal: PRESENT: as per HPI - Bilateral knee pain Hematologic/Lymphatic: PRESENT: easy bleeding - On Coumadin with elevated INR Physical Exam Vital Signs: Temp Pulse Resp BP Pulse Ox 100.3 F 121 H 18 137/77 H 95 06/08/19 15:57 06/08/19 15:57 06/08/19 15:57 06/08/19 15:57 06/08/19 15:57 Intake & Output 06/07/19 06/08/19 06/09/19 06:59 06:59 06:59 Intake Total 3020 2305 Output Total 400 400 Balance 2620 1905 Weight 81.5 kg General appearance: PRESENT: no acute distress, well-developed, well-nourished Head exam: PRESENT: atraumatic, normocephalic Respiratory exam: PRESENT: clear to auscultation daisy. ABSENT: rales, rhonchi, wheezes Cardiovascular exam: PRESENT: RRR. ABSENT: diastolic murmur, rubs, systolic murmur Extremities exam: PRESENT: other - Right knee: There is no erythema of the skin. There is no warmth. There is a moderate effusion of the knee. There is joint line tenderness on the medial joint line. There is no instability. There is normal tracking of the patella. There is edema of the foot. The patient is able to move all of her toes. Left knee: There is no erythema of the skin. There is no warmth. There is a moderate effusion of the knee. There is joint line tenderness on the medial joint line. There is no instability. There is normal tracking of the patella. There is edema of the foot. The patient is able to move all of her toes. Results Laboratory Results: 06/08/19 05:14 06/08/19 15:26 06/07/19 06/07/19 06/07/19 17:25 18:43 21:20 WBC RBC Hgb Hct MCV MCH MCHC RDW Plt Count Seg Neutrophils % Sodium Potassium Chloride Carbon Dioxide Anion Gap BUN Creatinine Est GFR ( Amer) Glucose Lactic Acid 1.0 Calcium Magnesium Total Bilirubin AST Alkaline Phosphatase Total Protein Albumin TSH 1.47 Urine Color [place] Urine Appearance SLIGHTLY-CLOUDY Urine pH 5.0 Ur Specific [place] 1.015 Urine Protein 30 H Urine Glucose (UA) NEGATIVE Urine Ketones NEGATIVE Urine Blood SMALL H Urine Nitrite POSITIVE H Ur Leukocyte Esterase NEGATIVE Urine WBC (Auto) 5 Urine RBC (Auto) 1 06/08/19 06/08/19 06/08/19 00:42 05:14 05:14 WBC 2.0 L RBC 3.23 L Hgb 8.9 L D Hct 25.9 L MCV 80 MCH 27.6 MCHC 34.4 RDW 14.1 H Plt Count 402 Seg Neutrophils % Not Reportable Sodium Potassium Chloride Carbon Dioxide Anion Gap BUN Creatinine Est GFR ( Amer) Glucose Lactic Acid 1.3 1.2 Calcium Magnesium Total Bilirubin AST Alkaline Phosphatase Total Protein Albumin TSH Urine Color Urine Appearance Urine pH Ur Specific [place] Urine Protein Urine Glucose (UA) Urine Ketones Urine Blood Urine Nitrite Ur Leukocyte Esterase Urine WBC (Auto) Urine RBC (Auto) 06/08/19 06/08/19 05:14 15:26 WBC RBC Hgb Hct MCV MCH MCHC RDW Plt Count Seg Neutrophils % Sodium 137.5 135.9 L Potassium 3.5 L 3.4 L Chloride 95 L 97 L Carbon Dioxide 32 H 32 H Anion Gap 11 7 BUN 24 H 15 Creatinine 1.03 0.75 Est GFR ( Amer) > 60 > 60 Glucose 221 H 229 H Lactic Acid Calcium 9.2 9.2 Magnesium 1.5 L Total Bilirubin 1.3 AST 34 Alkaline Phosphatase 193 H Total Protein 5.0 L Albumin 2.4 L TSH Urine Color Urine Appearance Urine pH Ur Specific [place] Urine Protein Urine Glucose (UA) Urine Ketones Urine Blood Urine Nitrite Ur Leukocyte Esterase Urine WBC (Auto) Urine RBC (Auto) 06/07/19 06/07/19 06/07/19 16:28 16:28 17:25 Creatine Kinase Cancelled 70 CK-MB (CK-2) Cancelled Troponin I Cancelled 06/07/19 17:25 Creatine Kinase CK-MB (CK-2) 0.72 Troponin I < 0.012 Impressions: Chest X-Ray 06/07/19 16:33 IMPRESSION: NO ACUTE RADIOGRAPHIC FINDING IN THE CHEST. Hand X-Ray 06/08/19 00:00 IMPRESSION: MILD DEGENERATIVE CHANGES IN THE DIP JOINTS. NO ACUTE FINDINGS. Knee X-Ray 06/08/19 00:00 IMPRESSION: JOINT EFFUSION. NO BONY FINDINGS. Assessment & Plan - Diagnosis (1) Right knee pain Qualifiers: Chronicity: acute Qualified Code(s): M25.561 - Pain in right knee Is this a current diagnosis for this admission?: Yes (2) Bilateral knee pain Qualifiers: Chronicity: acute Qualified Code(s): M25.561 - Pain in right knee; M25.562 - Pain in left knee Is this a current diagnosis for this admission?: Yes - Time Time Spent: 30 to 50 Minutes - Plan Summary Plan Summary: The patient is a 59-year-old woman with bilateral knee pain, right worse than left. Clinical examination of both knees demonstrate essentially the same clinical examination with effusions and joint line tenderness present. Clinical examination is not consistent with an infectious process. Examination is most consistent with a systemic inflammatory condition. The presence of a possible Reeves's cyst of the right knee is indicative of a possible meniscal tear present in the right knee. A systemic inflammatory condition would likely affect a knee with some underlying pre-existing problem with greater severity which likely explains greater tenderness in her right knee. I have discussed these findings with the patient. I have offered an arthrocentesis of the right knee with the hope that removing some of the effusion might alleviate her symptoms. The patient declined knee aspiration. I would not recommend additional specific treatment for her right knee until her general medical condition has returned to baseline and until the systemic inflammatory condition has resolved. Specifically I had discussed with the patient, that I would not recommend a cortisone injection into her knee until she was completely clear from infection. In the setting of neutropenia and her current infectious process, steroid injection would be contraindicated.
[2019-06-08] MEDS: HYDROMORPHONE HCL INJ/PF 2 MG/ML AMPULE IV PRN (19:52)
[2019-06-08] MEDS: PREDNISONE 5 MG TABLET PO SCH (21:19)
[2019-06-09] MEDS: DEXTROSE 5%-LACTATED RINGERS 1,000 ML IV PRN ×2 (01:45→06:39)
[2019-06-09 05:01] LABS: HEMATOCRIT 26.7 % (36.0-47.0); HEMOGLOBIN 8.8 g/dL (12.0-15.5); MEAN CORPUSCULAR HEMOGLOBIN 26.7 pg (27.0-33.4); MEAN CORPUSCULAR HGB CONC 33.1 g/dL (32.0-36.0); MEAN CORPUSCULAR VOLUME 81 fl (80-97); PLATELET COUNT 375 10^3/uL (150-450); RED BLOOD COUNT 3.31 10^6/uL (3.72-5.28); WHITE BLOOD COUNT 2.1 10^3/uL (4.0-10.5)
[2019-06-09] MEDS: LINEZOLID 600 MG/300 ML RTUPB IV SCH ×2 (05:03→19:51)
[2019-06-09] MEDS: PANTOPRAZOLE SODIUM 40 MG TABLET.DR PO SCH (05:03)
[2019-06-09 05:15] LABS: INTERNATIONAL RATION (INR) 1.38; PROTHROMBIN TIME 17.1 SEC (11.4-15.4)
[2019-06-09] MEDS: PROMETHAZINE HCL INJ 25 MG/1 ML VIAL IV PRN (07:28)
[2019-06-09] MEDS ORDERED: POTASSIUM CHLORIDE 10 MEQ TABLET.ER PO ONE (09:30)
[2019-06-09] MEDS: HYDROMORPHONE HCL INJ/PF 2 MG/ML AMPULE IV PRN ×2 (09:40→21:03)
[2019-06-09] MEDS: PREDNISONE 5 MG TABLET PO SCH ×2 (09:40→21:02)
[2019-06-09] MEDS: ENOXAPARIN SODIUM INJ 80 MG/0.8 ML DISP.SYRIN SUBCUT SCH ×2 (09:41→21:03)
[2019-06-09] MEDS: DOCUSATE SODIUM 100 MG CAPSULE PO SCH ×2 (09:42→18:22)
--- NOTE | 2019-06-09 12:26 | PDOC PROGRESS REPORT ---
Subjective Progress Note for:: 06/09/19 Subjective:: Patient seen on morning rounds. She states that she has had increased nausea. Not able to drink. Can't get comfortable. Does not like being stuck in bed sick. Reason For Visit: ACUTE KIDNEY INJURY,GENERALIZED WEAKNESS Physical Exam Vital Signs: Temp Pulse Resp BP Pulse Ox 98.3 F 85 16 140/84 H 93 06/09/19 07:17 06/09/19 11:02 06/09/19 11:02 06/09/19 07:17 06/09/19 11:02 Intake & Output 06/08/19 06/09/19 06/10/19 06:59 06:59 06:59 Intake Total 3020 6060 Output Total 400 400 Balance 2620 5660 Weight 81.5 kg 81.3 kg General appearance: PRESENT: no acute distress, well-developed, well-nourished Head exam: PRESENT: normocephalic Respiratory exam: PRESENT: unlabored Extremities exam: ABSENT: pedal edema Neurological exam: PRESENT: alert, awake Psychiatric exam: PRESENT: agitated Skin exam: PRESENT: normal color Results Laboratory Results: 06/09/19 03:46 06/08/19 15:26 06/08/19 06/09/19 06/09/19 15:26 03:46 03:46 WBC 2.1 L RBC 3.31 L Hgb 8.8 L Hct 26.7 L MCV 81 MCH 26.7 L MCHC 33.1 RDW 14.0 Plt Count 375 Sodium 135.9 L Potassium 3.4 L Chloride 97 L Carbon Dioxide 32 H Anion Gap 7 BUN 15 Creatinine 0.75 Est GFR ( Amer) > 60 Glucose 229 H Calcium 9.2 Magnesium 1.3 L 06/07/19 18:43 Clean Catch Midstream Urine Culture - Final Escherichia Coli 06/07/19 06/07/19 06/07/19 16:28 16:28 17:25 Creatine Kinase Cancelled 70 CK-MB (CK-2) Cancelled Troponin I Cancelled 06/07/19 17:25 Creatine Kinase CK-MB (CK-2) 0.72 Troponin I < 0.012 Impressions: Chest X-Ray 06/07/19 16:33 IMPRESSION: NO ACUTE RADIOGRAPHIC FINDING IN THE CHEST. Hand X-Ray 06/08/19 00:00 IMPRESSION: MILD DEGENERATIVE CHANGES IN THE DIP JOINTS. NO ACUTE FINDINGS. Knee X-Ray 06/08/19 00:00 IMPRESSION: JOINT EFFUSION. NO BONY FINDINGS. Assessment & Plan - Diagnosis (1) Urinary tract infection in female Is this a current diagnosis for this admission?: Yes (2) Factor V Leiden Is this a current diagnosis for this admission?: Yes Plan: Her INR today os 1.38 after Vit K. She is now on Lovenox 1 mg/kg SC BID and Warfarin 2.5 mg po daily. She should stay on blood thinners with goal INR 2-3 due to her high risk of blood clots. (3) Neutropenia Qualifiers: Neutropenia type: due to infection Qualified Code(s): D70.3 - Neutropenia due to infection Is this a current diagnosis for this admission?: Yes Plan: repeat CBC with dif in AM. Anemia stable. No indication for transfusion. - Time Time Spent with patient: 15-24 minutes
--- NOTE | 2019-06-09 14:27 | PDOC PROGRESS REPORT ---
Subjective Progress Note for:: 06/09/19 Subjective:: Patient was seen and examined. She is feeling better today. She is afebrile. Blood pressure heart rate better. She has loose bowel movements. Reason For Visit: ACUTE KIDNEY INJURY,GENERALIZED WEAKNESS Physical Exam Vital Signs: Temp Pulse Resp BP Pulse Ox 98.9 F 106 H 18 133/72 H 97 06/09/19 12:04 06/09/19 12:04 06/09/19 12:04 06/09/19 12:04 06/09/19 12:04 Intake & Output 06/08/19 06/09/19 06/10/19 06:59 06:59 06:59 Intake Total 3020 6060 0 Output Total 400 400 Balance 2620 5660 0 Weight 179 lb 10.828 oz 179 lb 3.773 oz 179 lb 3.773 oz Exam: Patient is no acute distress Alert oriented to time place person No anxiety or depression Head: atraumatic normocephalic Pupils: are equal reactive Neck: is supple and trachea is central no lymphadenopathy No pharyngeal erythema or exudates Heart: Regular rate and rhythm, no peripheral edema Lungs: clear to auscul, no respiratory distress Abdomen: nontender nondistended Neurological exam: unremarkable Musculoskeletal: Right joint knee effusion No suicidal or homicidal ideation Results Laboratory Results: 06/09/19 03:46 06/08/19 15:26 06/08/19 06/09/19 06/09/19 15:26 03:46 03:46 WBC 2.1 L RBC 3.31 L Hgb 8.8 L Hct 26.7 L MCV 81 MCH 26.7 L MCHC 33.1 RDW 14.0 Plt Count 375 Sodium 135.9 L Potassium 3.4 L Chloride 97 L Carbon Dioxide 32 H Anion Gap 7 BUN 15 Creatinine 0.75 Est GFR ( Amer) > 60 Glucose 229 H Calcium 9.2 Magnesium 1.3 L 06/07/19 18:43 Clean Catch Midstream Urine Culture - Final Escherichia Coli 06/07/19 06/07/19 06/07/19 16:28 16:28 17:25 Creatine Kinase Cancelled 70 CK-MB (CK-2) Cancelled Troponin I Cancelled 06/07/19 17:25 Creatine Kinase CK-MB (CK-2) 0.72 Troponin I < 0.012 Impressions: Chest X-Ray 06/07/19 16:33 IMPRESSION: NO ACUTE RADIOGRAPHIC FINDING IN THE CHEST. Hand X-Ray 06/08/19 00:00 IMPRESSION: MILD DEGENERATIVE CHANGES IN THE DIP JOINTS. NO ACUTE FINDINGS. Knee X-Ray 06/08/19 00:00 IMPRESSION: JOINT EFFUSION. NO BONY FINDINGS. Assessment and Plan - Diagnosis (1) YARELY (acute kidney injury) Is this a current diagnosis for this admission?: Yes Plan: Continue IV fluids and monitor closely. (2) Neutropenia Qualifiers: Neutropenia type: due to infection Qualified Code(s): D70.3 - Neutropenia due to infection Is this a current diagnosis for this admission?: Yes Plan: Neutropenic precautions. Hematology is following. (3) Sepsis Qualifiers: Severe sepsis acute organ dysfunction type: unspecified Severe sepsis shock status: unspecified Is this a current diagnosis for this admission?: Yes Plan: Cultures obtained in the ER are pending. She was started empirically on ceftriaxone and linezolid. (4) Swelling of finger of right hand Is this a current diagnosis for this admission?: Yes Plan: Antibiotics as above. x-ray shows mild degenerative disease. (5) Thrombocytosis Is this a current diagnosis for this admission?: Yes Plan: Resolved (6) Urinary tract infection in female Is this a current diagnosis for this admission?: Yes Plan: Urine culture positive for E. coli. Continue ceftriaxone (7) Generalized weakness Is this a current diagnosis for this admission?: Yes Plan: PT evaluation (8) Hypercoagulable state Is this a current diagnosis for this admission?: Yes Plan: Started Lovenox and restarting Coumadin per hematology. Monitor INR (9) Right knee pain Qualifiers: Chronicity: acute Qualified Code(s): M25.561 - Pain in right knee Is this a current diagnosis for this admission?: Yes Plan: X-ray showed effusion. May need arthrocentesis. (10) Tachycardia Is this a current diagnosis for this admission?: Yes Plan: Improved (11) Factor V Leiden Is this a current diagnosis for this admission?: Yes Plan: Lovenox and Coumadin as above
[2019-06-09] MEDS ORDERED: LIDOCAINE 1% INJ-PF (10 MG/ML) 30 ML SDV INJ ONE (16:15)
[2019-06-09 18:19] LABS: CALCIUM PYROPHOSPHATE CRYSTALS NONE OBSERVED; MONOSODIUM URATE CRYSTALS Intra&Extracellular; OTHER CRYSTALS NONE OBSERVED
[2019-06-09] MEDS: CEFTRIAXONE 1 GM/D5W RTU 1 GM/50 ML RTUPB IV SCH (18:22)
[2019-06-09 18:24] LABS: FLUID APPEARANCE CLEAR; FLUID COLOR YELLOW; FLUID SOURCE KNEE; FLUID TYPE SYNOVIAL; FLUID VISCOSITY SLIGHTLY VISCOUS
--- NOTE | 2019-06-09 18:24 | Operative Report ---
Operative Report DATE OF SURGERY: 06/09/19 PREOPERATIVE DIAGNOSIS: Right knee effusion POSTOPERATIVE DIAGNOSIS: Same OPERATION: Right knee arthrocentesis SURGEON: HEMA FOY ANESTHESIA: Local COMPLICATIONS: none ESTIMATED BLOOD LOSS: none PROCEDURE: The patient's right anteromedial knee area was prepped with Betadine times two and a 20-gauge spinal needle was used to approach the knee joint approximately 2 cm lateral to the superolateral pole of the patella. The 20-gauge spinal needle was inserted and entered the knee joint. Approximately, 30 cc of turbid yellow fluid was aspirated. The patient tolerated the procedure well. Fluid sent for analysis.
[2019-06-09 19:04] LABS: ANION GAP 8 (5-19); BLOOD UREA NITROGEN 10 mg/dL (7-20); CALCIUM 9.5 mg/dL (8.4-10.2); CARBON DIOXIDE 30 mmol/L (22-30); CHLORIDE 103 mmol/L (98-107); GLUCOSE 183 mg/dL (75-110)
[2019-06-09] MEDS: WARFARIN SODIUM 2.5 MG TABLET PO SCH (21:03)
[2019-06-09] MEDS ORDERED: WARFARIN SODIUM 5 MG TABLET PO SCH (22:00)
[2019-06-10 03:17] LABS: APPEARANCE,URINE SLIGHTLY-CLOUDY; BILIRUBIN,URINE NEGATIVE (NEGATIVE); COLOR,URINE YELLOW; GLUCOSE, URINE 50 mg/dL (NEGATIVE); KETONES,URINE NEGATIVE (NEGATIVE); LEUKOCYTE ESTERASE,URINE NEGATIVE (NEGATIVE); NITRITE,URINE NEGATIVE (NEGATIVE); PROTEIN,URINE 30 mg/dL (NEGATIVE); URINE SPECIFIC GRAVITY 1.016; UROBILINOGEN,URINE NEGATIVE mg/dL (<2.0)
[2019-06-10 03:46] LABS: C DIFFICILE GDH NEGATIVE (NEGATIVE)
[2019-06-10] MEDS: PANTOPRAZOLE SODIUM 40 MG TABLET.DR PO SCH (05:24)
[2019-06-10] MEDS: LINEZOLID 600 MG/300 ML RTUPB IV SCH ×2 (05:25→19:35)
[2019-06-10] MEDS: DEXTROSE 5%-LACTATED RINGERS 1,000 ML IV PRN (05:28)
[2019-06-10 07:02] LABS: HEMATOCRIT 26.5 % (36.0-47.0); MEAN CORPUSCULAR HEMOGLOBIN 27.1 pg (27.0-33.4); MEAN CORPUSCULAR HGB CONC 33.8 g/dL (32.0-36.0); MEAN CORPUSCULAR VOLUME 80 fl (80-97); PLATELET COUNT 424 10^3/uL (150-450); RED BLOOD COUNT 3.31 10^6/uL (3.72-5.28); WHITE BLOOD COUNT 1.7 10^3/uL (4.0-10.5)
[2019-06-10 07:03] LABS: INTERNATIONAL RATION (INR) 1.42; PROTHROMBIN TIME 17.5 SEC (11.4-15.4)
[2019-06-10] MEDS: PROMETHAZINE HCL INJ 25 MG/1 ML VIAL IV PRN (07:57)
[2019-06-10] MEDS: ENOXAPARIN SODIUM INJ 80 MG/0.8 ML DISP.SYRIN SUBCUT SCH ×2 (10:00→21:12)
[2019-06-10] MEDS: DOCUSATE SODIUM 100 MG CAPSULE PO SCH ×2 (10:00→18:43)
[2019-06-10] MEDS: PREDNISONE 5 MG TABLET PO SCH ×2 (10:00→21:12)
--- NOTE | 2019-06-10 12:22 | PDOC PROGRESS REPORT ---
Subjective Progress Note for:: 06/10/19 Subjective:: 06/09/2019: Patient was seen and examined. She is feeling better today. She is afebrile. Blood pressure heart rate better. She has loose bowel movements. 06/10/2019: Patient seen and examined. She is feeling the same. She has poor appetite. She still have some loose stool. She has some abdominal tenderness on exam. C. difficile is negative. Her blood pressure and heart rate are stable. Reason For Visit: ACUTE KIDNEY INJURY,GENERALIZED WEAKNESS Physical Exam Vital Signs: Temp Pulse Resp BP Pulse Ox 97.9 F 99 16 149/91 H 94 06/10/19 08:00 06/10/19 08:00 06/10/19 08:00 06/10/19 08:00 06/10/19 08:00 Intake & Output 06/09/19 06/10/19 06/11/19 06:59 06:59 06:59 Intake Total 6060 1880 Output Total 400 450 Balance 5660 1430 Weight 179 lb 3.773 oz 179 lb 10.828 oz Exam: Patient is no acute distress Alert oriented to time place person No anxiety or depression Head: atraumatic normocephalic Pupils: are equal reactive Neck: is supple and trachea is central no lymphadenopathy No pharyngeal erythema or exudates Heart: Regular rate and rhythm, no peripheral edema Lungs: clear to auscul, no respiratory distress Abdomen: Lower abdominal tenderness, nondistended Neurological exam: unremarkable Musculoskeletal: Right joint knee effusion improved No suicidal or homicidal ideation Results Laboratory Results: 06/10/19 04:47 06/09/19 17:26 06/09/19 06/09/19 06/09/19 16:20 16:20 17:26 WBC RBC Hgb Hct MCV MCH MCHC RDW Plt Count Sodium 140.9 Potassium 4.0 Chloride 103 Carbon Dioxide 30 Anion Gap 8 BUN 10 Creatinine 0.75 Est GFR ( Amer) > 60 Glucose 183 H Calcium 9.5 Magnesium Urine Color Urine Appearance Urine pH Ur Specific [place] Urine Protein Urine Glucose (UA) Urine Ketones Urine Blood Urine Nitrite Ur Leukocyte Esterase Urine WBC (Auto) Urine RBC (Auto) Fluid Type SYNOVIAL SYNOVIAL Fluid Source KNEE Fluid Color YELLOW Fluid Appearance CLEAR Fluid Viscosity SLIGHTLY VISCOUS Fluid WBC 8533 Fluid RBC 1133 06/10/19 06/10/19 06/10/19 02:50 04:47 04:47 WBC 1.7 L RBC 3.31 L Hgb 9.0 L Hct 26.5 L MCV 80 MCH 27.1 MCHC 33.8 RDW 14.0 Plt Count 424 Sodium Potassium Chloride Carbon Dioxide Anion Gap BUN Creatinine Est GFR ( Amer) Glucose Calcium Magnesium 1.3 L Urine Color YELLOW Urine Appearance SLIGHTLY-CLOUDY Urine pH 7.0 Ur Specific [place] 1.016 Urine Protein 30 H Urine Glucose (UA) 50 H Urine Ketones NEGATIVE Urine Blood NEGATIVE Urine Nitrite NEGATIVE Ur Leukocyte Esterase NEGATIVE Urine WBC (Auto) 3 Urine RBC (Auto) 5 Fluid Type Fluid Source Fluid Color Fluid Appearance Fluid Viscosity Fluid WBC Fluid RBC 06/07/19 18:43 Clean Catch Midstream Urine Culture - Final Escherichia Coli 06/07/19 06/07/19 06/07/19 16:28 16:28 17:25 Creatine Kinase Cancelled 70 CK-MB (CK-2) Cancelled Troponin I Cancelled 06/07/19 17:25 Creatine Kinase CK-MB (CK-2) 0.72 Troponin I < 0.012 Impressions: Chest X-Ray 06/07/19 16:33 IMPRESSION: NO ACUTE RADIOGRAPHIC FINDING IN THE CHEST. Hand X-Ray 06/08/19 00:00 IMPRESSION: MILD DEGENERATIVE CHANGES IN THE DIP JOINTS. NO ACUTE FINDINGS. Knee X-Ray 06/08/19 00:00 IMPRESSION: JOINT EFFUSION. NO BONY FINDINGS. Assessment and Plan - Diagnosis (1) YARELY (acute kidney injury) Is this a current diagnosis for this admission?: Yes Plan: Resolved. Continue IV fluids and monitor closely. (2) Neutropenia Qualifiers: Neutropenia type: due to infection Qualified Code(s): D70.3 - Neutropenia due to infection Is this a current diagnosis for this admission?: Yes Plan: Neutropenic precautions. Hematology is following. (3) Sepsis Qualifiers: Severe sepsis acute organ dysfunction type: unspecified Severe sepsis shock status: unspecified Is this a current diagnosis for this admission?: Yes Plan: Urine cultures positive for E. coli. Stool C. difficile is negative. Still with poor appetite. Now has diarrhea and lower abdominal tenderness. She was started empirically on ceftriaxone and linezolid. Check CT scan of the abdomen. Add IV metronidazole. (4) Swelling of finger of right hand Is this a current diagnosis for this admission?: Yes Plan: Antibiotics as above. x-ray shows mild degenerative disease. (5) Thrombocytosis Is this a current diagnosis for this admission?: Yes Plan: Resolved (6) Urinary tract infection in female Is this a current diagnosis for this admission?: Yes Plan: Urine culture positive for E. coli. Continue ceftriaxone (7) Generalized weakness Is this a current diagnosis for this admission?: Yes Plan: PT evaluation (8) Hypercoagulable state Is this a current diagnosis for this admission?: Yes Plan: Started Lovenox and restarting Coumadin per hematology. Monitor INR (9) Right knee pain Qualifiers: Chronicity: acute Qualified Code(s): M25.561 - Pain in right knee Is this a current diagnosis for this admission?: Yes Plan: X-ray showed effusion. Status post arthrocentesis yesterday. Fluid analysis shows no crystals, WBC 8533. (10) Tachycardia Is this a current diagnosis for this admission?: Yes Plan: Improved (11) Factor V Leiden Is this a current diagnosis for this admission?: Yes Plan: Lovenox and Coumadin as above
[2019-06-10 13:49] LABS: ANION GAP 9 (5-19); BLOOD UREA NITROGEN 9 mg/dL (7-20); CALCIUM 9.5 mg/dL (8.4-10.2); CARBON DIOXIDE 29 mmol/L (22-30); CHLORIDE 105 mmol/L (98-107); GLUCOSE 180 mg/dL (75-110); POTASSIUM 3.4 mmol/L (3.6-5.0)
[2019-06-10] MEDS: MAGNESIUM SULFATE/D5W 1 GM/100 ML RTUPB IV SCH ×2 (14:45→17:39)
--- NOTE | 2019-06-10 14:45 | RADIOLOGY REPORT (SQ) ---
EXAM DESCRIPTION: CT ABD/PELVIS WITH IV ONLY COMPLETED DATE/TIME: 06/10/2019 2:22 pm REASON FOR STUDY: abdominal pain and diarrhea COMPARISON: None. TECHNIQUE: CT scan of the abdomen and pelvis performed using helical scanning technique with dynamic intravenous contrast injection. No oral contrast. Images reviewed with lung, soft tissue, and bone windows. Reconstructed coronal and sagittal MPR images reviewed. Delayed images for evaluation of the urinary system also acquired. All images stored on PACS. All CT scanners at this facility use dose modulation, iterative reconstruction, and/or weight based d osing when appropriate to reduce radiation dose to as low as reasonably achievable (ALARA). [facility]: Dose Right [facility]: CareDose [facility]: Dose Right [facility]: Teradose 4D [facility]: [facility] CONTRAST TYPE AND DOSE: contrast/concentration: Isovue 350.00 mg/ml; Total Contrast Delivered: 89.0 ml; Total Saline Delivered: 70.0 ml RENAL FUNCTION: Creatinine 0.75 RADIATION DOSE: CT Rad equipment meets quality standard of care and radiation dose reduction techniq ues were employed. CTDIvol: 11.9 - 15.2 mGy. DLP: 1611 mGy-cm.. LIMITATIONS: None. FINDINGS: There is trace free intraperitoneal fluid under the right hemidiaphragm, and in the right pericolic gutter and pelvic cul-de-sac. No free intraperitoneal air. Distal descending and sigmoid colon is very thick walled, with luminal narrowing and mild surrounding inflammatory change in the pericolic fat worrisome for colitis. The descending colon is decompressed. There is minimal pericolic inflammation worrisome for colitis. The ascending colon is decompressed. There is mild inflammatory change in the right pericolic gutter , old worrisome for colitis. The no other areas of bowel wall thickening. Note dilated loops worrisome for obstruction. Normal c ontrast enhancement of the superior mesenteric artery and vein, and main portal vein suggesting again st ischemic colitis. Findings may be infectious or inflammatory. LOWER CHEST: Trace bilateral pleural effusions with bibasilar atelectasis. LIVER: Normal size. No masses. No dilated ducts. SPLEEN: Normal size. No focal lesions. PANCREAS: No masses. No significant calcifications. No adjacent inflammation or peripancreatic fluid collections. Pancreatic duct not dilated. GALLBLADDER: No identified stones by CT criteria. No inflammatory changes to suggest cholecystitis. ADRENAL GLANDS: No significant masses or asymmetry. RIGHT KIDNEY AND URETER: No solid masses. No significant calcifications. No hydronephrosis or hyd roureter. LEFT KIDNEY AND URETER: No solid masses. No significant calcifications. No hydronephrosis or hydr oureter. AORTA AND VESSELS: No aneurysm. No dissection. Renal arteries, SMA, celiac without stenosis. RETROPERITONEUM: No retroperitoneal adenopathy, hemorrhage or masses. BOWEL AND PERITONEAL CAVITY: As above APPENDIX: Normal. PELVIS: Small amount of cul-de-sac free fluid. Normal size female pelvic organs. No masses or adeno brian. ABDOMINAL WALL: No masses. No hernias. BONES: No significant or acute findings. OTHER: No other significant finding. IMPRESSION: Small amount of nonspecific free intra peritoneal fluid Diffuse colon wall thickening worrisome for colitis. Findings may be infectious or inflammatory. TECHNICAL DOCUMENTATION: JOB ID: [id number] Quality ID # [id number]: Final reports with documentation of one or more dose reduction techniques (e.g., Au tomated exposure control, adjustment of the mA and/or kV according to patient size, use of iterative reconstruction technique) 2010 [employer]- All Rights Reserved Reading location - IP/workstation name: [email or web address]
[2019-06-10] MEDS: METRONIDAZOLE RTU 500 MG/NS 100 ML IV SCH ×2 (15:08→21:12)
[2019-06-10] MEDS: CEFTRIAXONE 1 GM/D5W RTU 1 GM/50 ML RTUPB IV SCH (18:54)
[2019-06-10] MEDS: WARFARIN SODIUM 2.5 MG TABLET PO SCH (21:12)
[2019-06-11] MEDS: PROMETHAZINE HCL INJ 25 MG/1 ML VIAL IV PRN (01:53)
[2019-06-11] MEDS: HYDROMORPHONE HCL INJ/PF 2 MG/ML AMPULE IV PRN ×2 (01:53→23:55)
[2019-06-11] MEDS: DEXTROSE 5%-LACTATED RINGERS 1,000 ML IV PRN ×2 (01:54→18:03)
[2019-06-11] MEDS: PANTOPRAZOLE SODIUM 40 MG TABLET.DR PO SCH (05:08)
[2019-06-11] MEDS: LINEZOLID 600 MG/300 ML RTUPB IV SCH (05:08)
[2019-06-11] MEDS: METRONIDAZOLE RTU 500 MG/NS 100 ML IV SCH ×3 (05:08→21:34)
[2019-06-11 06:41] LABS: INTERNATIONAL RATION (INR) 1.92; PROTHROMBIN TIME 22.2 SEC (11.4-15.4)
[2019-06-11 06:46] LABS: HEMATOCRIT 26.1 % (36.0-47.0); HEMOGLOBIN 8.8 g/dL (12.0-15.5); MEAN CORPUSCULAR HEMOGLOBIN 27.1 pg (27.0-33.4); MEAN CORPUSCULAR HGB CONC 33.7 g/dL (32.0-36.0); MEAN CORPUSCULAR VOLUME 80 fl (80-97); PLATELET COUNT 399 10^3/uL (150-450); RED BLOOD COUNT 3.26 10^6/uL (3.72-5.28); RED CELL DISTRIBUTION WIDTH 14.2 % (11.5-14.0); WHITE BLOOD COUNT 2.2 10^3/uL (4.0-10.5)
[2019-06-11] MEDS ORDERED: MAGNESIUM SULFATE 4 GM/100 ML RTUPB IV ONE (08:13)
[2019-06-11] MEDS: PREDNISONE 5 MG TABLET PO SCH (09:24)
[2019-06-11] MEDS: ENOXAPARIN SODIUM INJ 80 MG/0.8 ML DISP.SYRIN SUBCUT SCH ×2 (09:25→21:34)
[2019-06-11] MEDS: DOCUSATE SODIUM 100 MG CAPSULE PO SCH ×2 (09:25→17:44)
[2019-06-11 10:15] LABS: HEMATOCRIT 26.5 % (36.0-47.0); HEMOGLOBIN 8.9 g/dL (12.0-15.5); MEAN CORPUSCULAR HEMOGLOBIN 26.8 pg (27.0-33.4); MEAN CORPUSCULAR HGB CONC 33.5 g/dL (32.0-36.0); MEAN CORPUSCULAR VOLUME 80 fl (80-97); PLATELET COUNT 406 10^3/uL (150-450); RED BLOOD COUNT 3.32 10^6/uL (3.72-5.28); WHITE BLOOD COUNT 2.2 10^3/uL (4.0-10.5)
--- NOTE | 2019-06-11 12:02 | PDOC PROGRESS REPORT ---
Subjective Progress Note for:: 06/11/19 Subjective:: 06/09/2019: Patient was seen and examined. She is feeling better today. She is afebrile. Blood pressure heart rate better. She has loose bowel movements. 06/10/2019: Patient seen and examined. She is feeling the same. She has poor appetite. She still have some loose stool. She has some abdominal tenderness on exam. C. difficile is negative. Her blood pressure and heart rate are stable. 06/11/2019: Patient seen and examined. She is feeling slightly better today. We started Flagyl yesterday. CT scan shows colitis. C. difficile is negative. Apparently she has history of celiac disease but was not on gluten-free diet. Reason For Visit: ACUTE KIDNEY INJURY,GENERALIZED WEAKNESS Physical Exam Vital Signs: Temp Pulse Resp BP Pulse Ox 98.5 F 91 15 160/85 H 96 06/11/19 11:09 06/11/19 11:09 06/11/19 11:09 06/11/19 11:09 06/11/19 11:09 Intake & Output 06/10/19 06/11/19 06/12/19 06:59 06:59 06:59 Intake Total 1880 1970 Output Total 450 Balance 1430 1970 Weight 179 lb 10.828 oz 184 lb 11.958 oz Exam: Patient is no acute distress Alert oriented to time place person No anxiety or depression Head: atraumatic normocephalic Pupils: are equal reactive Neck: is supple and trachea is central no lymphadenopathy No pharyngeal erythema or exudates Heart: Regular rate and rhythm, no peripheral edema Lungs: clear to auscul, no respiratory distress Abdomen: Lower abdominal tenderness, nondistended Neurological exam: unremarkable Musculoskeletal: Right joint knee effusion improved No suicidal or homicidal ideation Results Laboratory Results: 06/11/19 09:22 06/10/19 13:12 06/10/19 06/11/19 06/11/19 13:12 05:01 09:22 WBC 2.2 L 2.2 L RBC 3.26 L 3.32 L Hgb 8.8 L 8.9 L Hct 26.1 L 26.5 L MCV 80 80 MCH 27.1 26.8 L MCHC 33.7 33.5 RDW 14.2 H 14.0 Plt Count 399 406 Sodium 142.9 Potassium 3.4 L Chloride 105 Carbon Dioxide 29 Anion Gap 9 BUN 9 Creatinine 0.83 Est GFR ( Amer) > 60 Glucose 180 H Calcium 9.5 Magnesium 1.2 L* 06/09/19 19:55 Stool - Stool - Final 06/07/19 06/07/19 06/07/19 16:28 16:28 17:25 Creatine Kinase Cancelled 70 CK-MB (CK-2) Cancelled Troponin I Cancelled 06/07/19 17:25 Creatine Kinase CK-MB (CK-2) 0.72 Troponin I < 0.012 Impressions: Chest X-Ray 06/07/19 16:33 IMPRESSION: NO ACUTE RADIOGRAPHIC FINDING IN THE CHEST. Hand X-Ray 06/08/19 00:00 IMPRESSION: MILD DEGENERATIVE CHANGES IN THE DIP JOINTS. NO ACUTE FINDINGS. Knee X-Ray 06/08/19 00:00 IMPRESSION: JOINT EFFUSION. NO BONY FINDINGS. Abdomen/Pelvis CT 06/10/19 00:00 IMPRESSION: Small amount of nonspecific free intra peritoneal fluid Diffuse colon wall thickening worrisome for colitis. Findings may be infectious or inflammatory. Assessment and Plan - Diagnosis (1) YARELY (acute kidney injury) Is this a current diagnosis for this admission?: Yes Plan: Resolved. Continue IV fluids and monitor closely. (2) Neutropenia Qualifiers: Neutropenia type: due to infection Qualified Code(s): D70.3 - Neutropenia due to infection Is this a current diagnosis for this admission?: Yes Plan: Neutropenic precautions. Hematology is following. (3) Sepsis Qualifiers: Severe sepsis acute organ dysfunction type: unspecified Severe sepsis shock status: unspecified Is this a current diagnosis for this admission?: Yes Plan: Urine cultures positive for E. coli. Stool C. difficile is negative. Still with poor appetite. Now has diarrhea and lower abdominal tenderness. She was started empirically on ceftriaxone and linezolid. CT scan shows colitis. C. difficile is negative. Apparently she has history of celiac disease but was not on gluten-free diet. Flagyl was added yesterday. We will stop Zyvox. (4) Swelling of finger of right hand Is this a current diagnosis for this admission?: Yes Plan: x-ray shows mild degenerative disease. Initially right ring finger was inflamed but now resolved Today the right index finger is inflamed and show signs of arthritis She has celiac disease We will increase steroids to 20 mg twice daily (5) Thrombocytosis Is this a current diagnosis for this admission?: Yes Plan: Resolved (6) Urinary tract infection in female Is this a current diagnosis for this admission?: Yes Plan: Urine culture positive for E. coli. Continue ceftriaxone (7) Generalized weakness Is this a current diagnosis for this admission?: Yes Plan: PT evaluation (8) Hypercoagulable state Is this a current diagnosis for this admission?: Yes Plan: Started Lovenox and restarting Coumadin per hematology. Monitor INR (9) Right knee pain Qualifiers: Chronicity: acute Qualified Code(s): M25.561 - Pain in right knee Is this a current diagnosis for this admission?: Yes Plan: X-ray showed effusion. Status post arthrocentesis yesterday. Fluid analysis shows no crystals, WBC 8533. (10) Tachycardia Is this a current diagnosis for this admission?: Yes Plan: Improved (11) Factor V Leiden Is this a current diagnosis for this admission?: Yes Plan: Lovenox and Coumadin as above
[2019-06-11 12:32] LABS: ANION GAP 5 (5-19); BLOOD UREA NITROGEN 8 mg/dL (7-20); CALCIUM 8.7 mg/dL (8.4-10.2); CARBON DIOXIDE 30 mmol/L (22-30); CHLORIDE 105 mmol/L (98-107); GLUCOSE 179 mg/dL (75-110); POTASSIUM 3.9 mmol/L (3.6-5.0)
[2019-06-11 13:52] LABS: ANION GAP 9 (5-19); BLOOD UREA NITROGEN 8 mg/dL (7-20); CALCIUM 8.8 mg/dL (8.4-10.2); CARBON DIOXIDE 28 mmol/L (22-30); CHLORIDE 104 mmol/L (98-107); GLUCOSE 142 mg/dL (75-110)
[2019-06-11 14:04] LABS: POTASSIUM 3.3 mmol/L (3.6-5.0)
[2019-06-11] MEDS: PREDNISONE 20 MG TABLET PO SCH ×2 (14:22→21:34)
[2019-06-11] MEDS: CEFTRIAXONE 1 GM/D5W RTU 1 GM/50 ML RTUPB IV SCH (18:03)
[2019-06-11] MEDS: WARFARIN SODIUM 2.5 MG TABLET PO SCH (21:34)
[2019-06-12] MEDS: METRONIDAZOLE RTU 500 MG/NS 100 ML IV SCH (05:10)
[2019-06-12] MEDS: PANTOPRAZOLE SODIUM 40 MG TABLET.DR PO SCH (05:10)
[2019-06-12] MEDS: DEXTROSE 5%-LACTATED RINGERS 1,000 ML IV PRN ×2 (05:14→21:26)
[2019-06-12 05:35] LABS: ABSOLUTE LYMPHOCYTES (AUTO) 0.4 10^3/uL (0.5-4.7); ABSOLUTE MONOCYTES (AUTO) 0.2 10^3/uL (0.1-1.4); ABSOLUTE NEUT (AUTO) 2.7 10^3/uL (1.7-8.2); BASOPHILS % (AUTO) 0.2 % (0-2); HEMATOCRIT 29.4 % (36.0-47.0); HEMOGLOBIN 9.7 g/dL (12.0-15.5); MEAN CORPUSCULAR HEMOGLOBIN 26.5 pg (27.0-33.4); MEAN CORPUSCULAR HGB CONC 32.9 g/dL (32.0-36.0); MEAN CORPUSCULAR VOLUME 80 fl (80-97); MONOCYTES % (AUTO) 6.9 % (3-13); PLATELET COUNT 447 10^3/uL (150-450); RED BLOOD COUNT 3.66 10^6/uL (3.72-5.28); RED CELL DISTRIBUTION WIDTH 13.9 % (11.5-14.0); SEGMENTED NEUTROPHILS % (AUTO) 79.9 % (42-78); TOTAL CELLS COUNTED % (AUTO) 100 %; WHITE BLOOD COUNT 3.4 10^3/uL (4.0-10.5)
[2019-06-12 05:47] LABS: INTERNATIONAL RATION (INR) 2.18; PROTHROMBIN TIME 24.6 SEC (11.4-15.4)
[2019-06-12 09:31] LABS: ANION GAP 8 (5-19); BLOOD UREA NITROGEN 10 mg/dL (7-20); CALCIUM 8.5 mg/dL (8.4-10.2); CARBON DIOXIDE 26 mmol/L (22-30); CHLORIDE 105 mmol/L (98-107); GLUCOSE 231 mg/dL (75-110); POTASSIUM 4.2 mmol/L (3.6-5.0)
[2019-06-12] MEDS: PREDNISONE 20 MG TABLET PO SCH ×2 (09:34→21:27)
[2019-06-12] MEDS: DOCUSATE SODIUM 100 MG CAPSULE PO SCH ×2 (09:35→17:56)
[2019-06-12] MEDS: ENOXAPARIN SODIUM INJ 80 MG/0.8 ML DISP.SYRIN SUBCUT SCH ×2 (09:35→21:27)
--- NOTE | 2019-06-12 11:48 | PDOC PROGRESS REPORT ---
Subjective Progress Note for:: 06/12/19 Subjective:: 06/09/2019: Patient was seen and examined. She is feeling better today. She is afebrile. Blood pressure heart rate better. She has loose bowel movements. 06/10/2019: Patient seen and examined. She is feeling the same. She has poor appetite. She still have some loose stool. She has some abdominal tenderness on exam. C. difficile is negative. Her blood pressure and heart rate are stable. 06/11/2019: Patient seen and examined. She is feeling slightly better today. We started Flagyl yesterday. CT scan shows colitis. C. difficile is negative. Apparently she has history of celiac disease but was not on gluten-free diet. 06/12/2019: Patient was seen and examined. Diarrhea has improved. Appetite slightly better. Also synovitis of her index finger is improving. Reason For Visit: ACUTE KIDNEY INJURY,GENERALIZED WEAKNESS Physical Exam Vital Signs: Temp Pulse Resp BP Pulse Ox 98.9 F 77 15 160/90 H 96 06/12/19 08:04 06/12/19 08:04 06/12/19 08:04 06/12/19 08:04 06/12/19 08:04 Intake & Output 06/11/19 06/12/19 06/13/19 06:59 06:59 06:59 Intake Total 1969 2370 Output Total 800 Balance 1969 1570 Weight 184 lb 11.958 oz 184 lb 11.958 oz Exam: Patient is no acute distress Alert oriented to time place person No anxiety or depression Head: atraumatic normocephalic Pupils: are equal reactive Neck: is supple and trachea is central no lymphadenopathy No pharyngeal erythema or exudates Heart: Regular rate and rhythm, no peripheral edema Lungs: clear to auscul, no respiratory distress Abdomen: Lower abdominal tenderness, nondistended Neurological exam: unremarkable Musculoskeletal: Right joint knee effusion improved No suicidal or homicidal ideation Results Laboratory Results: 06/12/19 04:46 06/12/19 04:46 06/11/19 06/11/19 06/12/19 05:01 12:52 04:46 WBC 3.4 L RBC 3.66 L Hgb 9.7 L Hct 29.4 L MCV 80 MCH 26.5 L MCHC 32.9 RDW 13.9 Plt Count 447 Seg Neutrophils % 79.9 H Sodium 140.3 141.0 Potassium 3.9 3.3 L Chloride 105 104 Carbon Dioxide 30 28 Anion Gap 5 9 BUN 8 8 Creatinine 0.79 0.88 Est GFR ( Amer) > 60 > 60 Glucose 179 H 142 H Calcium 8.7 8.8 Magnesium 1.7 2.7 H D 06/12/19 04:46 WBC RBC Hgb Hct MCV MCH MCHC RDW Plt Count Seg Neutrophils % Sodium 139.4 Potassium 4.2 Chloride 105 Carbon Dioxide 26 Anion Gap 8 BUN 10 Creatinine 0.82 Est GFR ( Amer) > 60 Glucose 231 H Calcium 8.5 Magnesium 06/09/19 19:55 Stool - Stool - Final 06/09/19 19:55 Stool - Stool Stool Culture - Final NO SALMONELLA, SHIGELLA, CAMPYLOBACTER OR E.COLI 0157 RECOVERED. NO SHIGA TOXIN TEST PERFORMED 06/07/19 06/07/19 06/07/19 16:28 16:28 17:25 Creatine Kinase Cancelled 70 CK-MB (CK-2) Cancelled Troponin I Cancelled 06/07/19 17:25 Creatine Kinase CK-MB (CK-2) 0.72 Troponin I < 0.012 Impressions: Chest X-Ray 06/07/19 16:33 IMPRESSION: NO ACUTE RADIOGRAPHIC FINDING IN THE CHEST. Hand X-Ray 06/08/19 00:00 IMPRESSION: MILD DEGENERATIVE CHANGES IN THE DIP JOINTS. NO ACUTE FINDINGS. Knee X-Ray 06/08/19 00:00 IMPRESSION: JOINT EFFUSION. NO BONY FINDINGS. Abdomen/Pelvis CT 06/10/19 00:00 IMPRESSION: Small amount of nonspecific free intra peritoneal fluid Diffuse colon wall thickening worrisome for colitis. Findings may be infectious or inflammatory. Assessment and Plan - Diagnosis (1) YARELY (acute kidney injury) Is this a current diagnosis for this admission?: Yes Plan: Resolved. Continue IV fluids and monitor closely. (2) Neutropenia Qualifiers: Neutropenia type: due to infection Qualified Code(s): D70.3 - Neutropenia due to infection Is this a current diagnosis for this admission?: Yes Plan: Neutropenic precautions. Hematology is following. (3) Sepsis Qualifiers: Severe sepsis acute organ dysfunction type: unspecified Severe sepsis shock status: unspecified Is this a current diagnosis for this admission?: Yes Plan: Urine cultures positive for E. coli. Stool C. difficile is negative. Still with poor appetite. Now has diarrhea and lower abdominal tenderness. She was started empirically on ceftriaxone and linezolid. CT scan shows colitis. C. difficile is negative. Apparently she has history of celiac disease but was not on gluten-free diet. Flagyl was added yesterday, will discontinue. Zyvox discontinued yesterday. Ceftriaxone will be finished today. (4) Swelling of finger of right hand Is this a current diagnosis for this admission?: Yes Plan: x-ray shows mild degenerative disease. Initially right ring finger was inflamed but now resolved Yesterday the right index finger is inflamed and show signs of synovitis, improved today She has celiac disease Yesterday, we increased steroids to 20 mg twice daily (5) Thrombocytosis Is this a current diagnosis for this admission?: Yes Plan: Resolved (6) Urinary tract infection in female Is this a current diagnosis for this admission?: Yes Plan: Urine culture positive for E. coli. Ceftriaxone as above (7) Generalized weakness Is this a current diagnosis for this admission?: Yes Plan: PT evaluation (8) Hypercoagulable state Is this a current diagnosis for this admission?: Yes Plan: Started Lovenox and restarting Coumadin per hematology. Monitor INR (9) Right knee pain Qualifiers: Chronicity: acute Qualified Code(s): M25.561 - Pain in right knee Is this a current diagnosis for this admission?: Yes Plan: X-ray showed effusion. Status post arthrocentesis yesterday. Fluid analysis shows no crystals, WBC 8533. (10) Tachycardia Is this a current diagnosis for this admission?: Yes Plan: Resolved (11) Factor V Leiden Is this a current diagnosis for this admission?: Yes Plan: Lovenox and Coumadin as above
[2019-06-12 13:09] LABS: ANION GAP 10 (5-19); BLOOD UREA NITROGEN 11 mg/dL (7-20); CALCIUM 8.6 mg/dL (8.4-10.2); CARBON DIOXIDE 26 mmol/L (22-30); CHLORIDE 105 mmol/L (98-107); GLUCOSE 212 mg/dL (75-110); POTASSIUM 3.5 mmol/L (3.6-5.0)
[2019-06-12] MEDS: METOPROLOL TARTRATE PF/INJ 5 MG/5 ML SDV IV PRN (14:03)
[2019-06-12] MEDS ORDERED: LOSARTAN POTASSIUM 50 MG TABLET PO ONE (17:46)
[2019-06-12] MEDS: CEFTRIAXONE 1 GM/D5W RTU 1 GM/50 ML RTUPB IV SCH (17:49)
[2019-06-12] MEDS: OXYCODONE-ACETAMINOPHEN 5-325 MG TABLET PO PRN (17:58)
[2019-06-12] MEDS: WARFARIN SODIUM 2.5 MG TABLET PO SCH (21:27)
[2019-06-12 21:48] LABS: AMORPHOUS SEDIMENT,URINE TRACE /HPF; APPEARANCE,URINE CLOUDY; BILIRUBIN,URINE NEGATIVE (NEGATIVE); COLOR,URINE AMBER; GLUCOSE, URINE 50 mg/dL (NEGATIVE); KETONES,URINE NEGATIVE (NEGATIVE); LEUKOCYTE ESTERASE,URINE LARGE (NEGATIVE); NITRITE,URINE NEGATIVE (NEGATIVE); PROTEIN,URINE 30 mg/dL (NEGATIVE); URINE SPECIFIC GRAVITY 1.023; UROBILINOGEN,URINE NEGATIVE mg/dL (<2.0)
[2019-06-12] MEDS: HYDROMORPHONE HCL INJ/PF 2 MG/ML AMPULE IV PRN (23:32)
[2019-06-13] MEDS: PANTOPRAZOLE SODIUM 40 MG TABLET.DR PO SCH (05:41)
[2019-06-13 05:57] LABS: ABSOLUTE LYMPHOCYTES (AUTO) 0.6 10^3/uL (0.5-4.7); ABSOLUTE MONOCYTES (AUTO) 0.3 10^3/uL (0.1-1.4); ABSOLUTE NEUT (AUTO) 4.3 10^3/uL (1.7-8.2); BASOPHILS % (AUTO) 0.1 % (0-2); HEMATOCRIT 28.1 % (36.0-47.0); HEMOGLOBIN 9.4 g/dL (12.0-15.5); LYMPHOCYTES % (AUTO) 12.4 % (13-45); MEAN CORPUSCULAR HEMOGLOBIN 26.8 pg (27.0-33.4); MEAN CORPUSCULAR HGB CONC 33.4 g/dL (32.0-36.0); MEAN CORPUSCULAR VOLUME 80 fl (80-97); MONOCYTES % (AUTO) 5.6 % (3-13); PLATELET COUNT 399 10^3/uL (150-450); RED BLOOD COUNT 3.51 10^6/uL (3.72-5.28); RED CELL DISTRIBUTION WIDTH 14.1 % (11.5-14.0); SEGMENTED NEUTROPHILS % (AUTO) 81.9 % (42-78); TOTAL CELLS COUNTED % (AUTO) 100 %; WHITE BLOOD COUNT 5.2 10^3/uL (4.0-10.5)
[2019-06-13 06:08] LABS: INTERNATIONAL RATION (INR) 3.04; PROTHROMBIN TIME 32.1 SEC (11.4-15.4)
[2019-06-13] MEDS: DOCUSATE SODIUM 100 MG CAPSULE PO SCH ×2 (09:12→17:09)
[2019-06-13] MEDS: LOSARTAN POTASSIUM 50 MG TABLET PO SCH ×2 (09:15→22:05)
[2019-06-13] MEDS: DEXTROSE 5%-LACTATED RINGERS 1,000 ML IV PRN (09:15)
[2019-06-13] MEDS: PREDNISONE 20 MG TABLET PO SCH ×2 (09:15→22:05)
--- NOTE | 2019-06-13 10:44 | RADIOLOGY REPORT (SQ) ---
EXAM DESCRIPTION: ANKLE RIGHT COMPLETE COMPLETED DATE/TIME: 06/12/2019 8:40 pm REASON FOR STUDY: ankle pain and awelling COMPARISON: None. NUMBER OF VIEWS: Three views. TECHNIQUE: AP, lateral, and oblique radiographic images acquired of the right ankle. LIMITATIONS: None. FINDINGS: MINERALIZATION: Normal. BONES: No acute fracture or dislocation. No worrisome bone lesions. JOINTS: No effusions. SOFT TISSUES: Diffuse swelling. No foreign body. OTHER: No other significant finding. IMPRESSION: No fracture or foreign body. TECHNICAL DOCUMENTATION: JOB ID: [id number] [employer]- All Rights Reserved Reading location - IP/workstation name: [email or web address]
--- NOTE | 2019-06-13 13:42 | PDOC PROGRESS REPORT ---
Subjective Progress Note for:: 06/13/19 Subjective:: Patient is still very sleepy, but is feeling better. She asks if the Lovenox shots can stop. Reason For Visit: ACUTE KIDNEY INJURY,GENERALIZED WEAKNESS Physical Exam Vital Signs: Temp Pulse Resp BP Pulse Ox 97.3 F 77 17 185/91 H 94 06/13/19 11:00 06/13/19 11:00 06/13/19 11:00 06/13/19 11:00 06/13/19 11:00 Intake & Output 06/12/19 06/13/19 06/14/19 06:59 06:59 06:59 Intake Total 2370 1730 1000 Output Total 800 Balance 1570 1730 1000 Weight 83.8 kg 84.6 kg General appearance: PRESENT: thin, well-developed Head exam: PRESENT: normocephalic Respiratory exam: PRESENT: clear to auscultation daisy, unlabored Cardiovascular exam: PRESENT: RRR GI/Abdominal exam: PRESENT: soft. ABSENT: tenderness Extremities exam: PRESENT: +1 edema Neurological exam: PRESENT: alert, awake Psychiatric exam: PRESENT: appropriate affect Skin exam: PRESENT: normal color Results Laboratory Results: 06/13/19 04:11 06/12/19 12:20 06/12/19 06/12/19 06/13/19 12:52 21:25 04:11 WBC 5.2 RBC 3.51 L Hgb 9.4 L Hct 28.1 L MCV 80 MCH 26.8 L MCHC 33.4 RDW 14.1 H Plt Count 399 Seg Neutrophils % 81.9 H Uric Acid 7.1 Urine Color [place] Urine Appearance CLOUDY Urine pH 6.0 Ur Specific [place] 1.023 Urine Protein 30 H Urine Glucose (UA) 50 H Urine Ketones NEGATIVE Urine Blood NEGATIVE Urine Nitrite NEGATIVE Ur Leukocyte Esterase LARGE H Urine WBC (Auto) 22 Urine RBC (Auto) 112 06/09/19 16:20 Synovial Fluid - Right Knee Gram Stain - Final 06/09/19 16:20 Synovial Fluid - Right Knee Body Fluid Culture - Final NO AEROBIC OR ANAEROBIC ORGANISMS RECOVERED 06/07/19 17:25 Blood Blood Culture - Final NO GROWTH IN 5 DAYS 06/07/19 16:53 Blood Blood Culture - Final NO GROWTH IN 5 DAYS 06/09/19 19:55 Stool - Stool - Final 06/09/19 19:55 Stool - Stool Stool Culture - Final NO SALMONELLA, SHIGELLA, CAMPYLOBACTER OR E.COLI 0157 RECOVERED. NO SHIGA TOXIN TEST PERFORMED 06/07/19 06/07/19 06/07/19 16:28 16:28 17:25 Creatine Kinase Cancelled 70 CK-MB (CK-2) Cancelled Troponin I Cancelled 06/07/19 17:25 Creatine Kinase CK-MB (CK-2) 0.72 Troponin I < 0.012 Impressions: Chest X-Ray 06/07/19 16:33 IMPRESSION: NO ACUTE RADIOGRAPHIC FINDING IN THE CHEST. Hand X-Ray 06/08/19 00:00 IMPRESSION: MILD DEGENERATIVE CHANGES IN THE DIP JOINTS. NO ACUTE FINDINGS. Knee X-Ray 06/08/19 00:00 IMPRESSION: JOINT EFFUSION. NO BONY FINDINGS. Abdomen/Pelvis CT 06/10/19 00:00 IMPRESSION: Small amount of nonspecific free intra peritoneal fluid Diffuse colon wall thickening worrisome for colitis. Findings may be infectious or inflammatory. Ankle X-Ray 06/12/19 00:00 IMPRESSION: No fracture or foreign body. Assessment & Plan - Diagnosis (1) Urinary tract infection in female Is this a current diagnosis for this admission?: Yes Plan: Evidence of sepsis now resolving. Labs are back to baseline. Further treatment per primary team. (2) Factor V Leiden Is this a current diagnosis for this admission?: Yes Plan: Her IRN goal is 2-3. I will stop the Lovenox, as INR has been therapeutic. Continue coumadin and watch INR levels. (3) Neutropenia Qualifiers: Neutropenia type: due to infection Qualified Code(s): D70.3 - Neutropenia due to infection Is this a current diagnosis for this admission?: Yes Plan: Resolved. - Time Time Spent with patient: Less than 15 minutes - Plan Summary Plan Summary: I will sign off at this point. She will follow-up with PCP as previously for Warfarin management. Please call if further needed.
--- NOTE | 2019-06-13 15:19 | PDOC PROGRESS REPORT ---
Subjective Progress Note for:: 06/13/19 Subjective:: HONG SILVA is a 59 year old female who presented to the emergency room with a 10-day history of right knee pain. She admits the pain began 10 days ago and gradually worsened causing her to present to another ER where she was found to have a 5 cm Reeves's cyst in the right popliteal fossa. Her right knee pain is now a constant severe nonradiating aching pain made worse by any attempted weightbearing and movements. For the last week she has been unable to get out of bed because of the knee pain. She admits associated decrease in oral intake, generalized weakness, tachycardia, malaise, chills and an accompanying decrease in urination with mild dysuria. She denies other associated or accompanying signs and symptoms. She admits prior similar episodes associated with her factor V Leiden disease. She denies identification of any additional aggravating or ameliorating factors for her right knee pain. In the emergency room she was found to have a positive urine nitrite and a serum lactic acid of 2.3. Additionally she was noted to be initially hypotensive with a systolic blood pressure of 90 and a heart rate in the 130s to 140s. She has shown im provement with IV fluids. She was also noted to have an acute kidney injury and warfarin toxicity with an INR of 9.63. She was subsequently admitted to the hospital for further evaluation and treatment. 06/05/2019. No acute events overnight. Still complaining of persistent bilateral ankle pain, right knee pain improving, complaining of persistent right first PIP joint swelling and pain, denies any fever, chills, nausea, vomiting, diarrhea, constipation or any urinary symptoms. P.o. tolerant. Having normal bowel and bladder movements. Reason For Visit: ACUTE KIDNEY INJURY,GENERALIZED WEAKNESS Physical Exam Vital Signs: Temp Pulse Resp BP Pulse Ox 97.3 F 77 17 185/91 H 94 06/13/19 11:00 06/13/19 11:00 06/13/19 11:00 06/13/19 11:06/13/19 11:00 Intake & Output 06/12/19 06/13/19 06/14/19 06:59 06:59 06:59 Intake Total 2370 1730 1000 Output Total 800 Balance 1570 1730 1000 Weight 83.8 kg 84.6 kg General appearance: PRESENT: no acute distress, well-developed, well-nourished Head exam: PRESENT: atraumatic, normocephalic Neck exam: ABSENT: carotid bruit, JVD, lymphadenopathy, thyromegaly Respiratory exam: PRESENT: clear to auscultation daisy. ABSENT: rales, rhonchi, wheezes Cardiovascular exam: PRESENT: RRR. ABSENT: diastolic murmur, rubs, systolic murmur GI/Abdominal exam: PRESENT: normal bowel sounds, soft. ABSENT: distended, guarding, mass, organolmegaly, rebound, tenderness Extremities exam: PRESENT: joint swelling - Bilateral ankle first PIP., tenderness - Bilateral ankle Neurological exam: PRESENT: alert, awake, oriented to person, oriented to place, oriented to time, oriented to situation, CN II-XII grossly intact. ABSENT: m otor sensory deficit Results Laboratory Results: 06/13/19 04:11 06/12/19 12:20 06/12/19 06/12/19 06/13/19 12:52 21:25 04:11 WBC 5.2 RBC 3.51 L Hgb 9.4 L Hct 28.1 L MCV 80 MCH 26.8 L MCHC 33.4 RDW 14.1 H Plt Count 399 Seg Neutrophils % 81.9 H Uric Acid 7.1 Urine Color GIOV[place] Urine Appearance CLOUDY Urine pH 6.0 Ur Specific [place] 1.023 Urine Protein 30 H Urine Glucose (UA) 50 H Urine Ketones NEGATIVE Urine Blood NEGATIVE Urine Nitrite NEGATIVE Ur Leukocyte Esterase LARGE H Urine WBC (Auto) 22 Urine RBC (Auto) 112 06/09/19 16:20 Synovial Fluid - Right Knee Gram Stain - Final 06/09/19 16:20 Synovial Fluid - Right Knee Body Fluid Culture - Final NO AEROBIC OR ANAEROBIC ORGANISMS RECOVERED 06/07/19 17:25 Blood Blood Culture - Final NO GROWTH IN 5 DAYS 06/07/19 16:53 Blood Blood Culture - Final NO GROWTH IN 5 DAYS 06/07/19 06/07/19 06/07/19 16:28 16:28 17:25 Creatine Kinase Cancelled 70 CK-MB (CK-2) Cancelled Troponin I Cancelled 06/07/19 17:25 Creatine Kinase CK-MB (CK-2) 0.72 Troponin I < 0.012 Impressions: Chest X-Ray 06/07/19 16:33 IMPRESSION: NO ACUTE RADIOGRAPHIC FINDING IN THE CHEST. Hand X-Ray 06/08/19 00:00 IMPRESSION: MILD DEGENERATIVE CHANGES IN THE DIP JOINTS. NO ACUTE FINDINGS. Knee X-Ray 06/08/19 00:00 IMPRESSION: JOINT EFFUSION. NO BONY FINDINGS. Abdomen/Pelvis CT 06/10/19 00:00 IMPRESSION: Small amount of nonspecific free intra peritoneal fluid Diffuse colon wall thickening worrisome for colitis. Findings may be infectious or inflammatory. Ankle X-Ray 06/12/19 00:00 IMPRESSION: No fracture or foreign body. Assessment and Plan - Diagnosis (1) YARELY (acute kidney injury) Is this a current diagnosis for this admission?: Yes Plan: Resolved. Continue IV fluids and monitor closely. (2) Bilateral knee pain Qualifiers: Chronicity: acute Qualified Code(s): M25.561 - Pain in right knee; M25.562 - Pain in left knee Is this a current diagnosis for this admission?: Yes (3) Generalized weakness Is this a current diagnosis for this admission?: Yes Plan: PT evaluation (4) Hypercoagulable state Is this a current diagnosis for this admission?: Yes Plan: Started Lovenox and restarting Coumadin per hematology. Monitor INR (5) Neutropenia Qualifiers: Neutropenia type: due to infection Qualified Code(s): D70.3 - Neutropenia due to infection Is this a current diagnosis for this admission?: Yes Plan: Neutropenic precautions. Hematology is following. (6) Sepsis Qualifiers: Severe sepsis acute organ dysfunction type: unspecified Severe sepsis shock status: unspecified Is this a current diagnosis for this admission?: Yes Plan: Urine cultures positive for E. coli. Stool C. difficile is negative. Still with poor appetite. Now has diarrhea and lower abdominal tenderness. She was started empirically on ceftriaxone and linezolid. CT scan shows colitis. C. difficile is negative. Apparently she has history of celiac disease but was not on gluten-free diet. Flagyl was added yesterday, will discontinue. Zyvox discontinued yesterday. Ceftriaxone will be finished today. (7) Swelling of finger of right hand Is this a current diagnosis for this admission?: Yes Plan: x-ray shows mild degenerative disease. Initially right ring finger was inflamed but now resolved Yesterday the right index finger is inflamed and show signs of synovitis, improved today She has celiac disease Yesterday, we increased steroids to 20 mg twice daily (8) Thrombocytosis Is this a current diagnosis for this admission?: Yes Plan: Resolved (9) Urinary tract infection in female Is this a current diagnosis for this admission?: Yes Plan: Urine culture positive for E. coli. Ceftriaxone as above (10) Factor V Leiden Is this a current diagnosis for this admission?: Yes Plan: Lovenox and Coumadin as above
[2019-06-13] MEDS ORDERED: DEXTROSE 50%-WATER 25 GM/50 ML DISP.SYRIN IV PRN ×4 (15:21→15:22)
[2019-06-13] MEDS ORDERED: GLUCAGON,HUMAN RECOMB 1 MG INJ IM PRN ×2 (15:21→15:22)
[2019-06-13] MEDS ORDERED: DEXTROSE 40% GEL 15 GM TUBE PO PRN ×4 (15:21→15:22)
[2019-06-13] MEDS: OXYCODONE-ACETAMINOPHEN 5-325 MG TABLET PO PRN (16:18)
[2019-06-13] MEDS: INSULIN LISPRO 100 UNIT/ML 3 ML VIAL SUBCUT SCH ×2 (16:38→22:07)
[2019-06-13] MEDS ORDERED: WARFARIN SODIUM 2.5 MG TABLET PO SCH (22:00)
[2019-06-13] MEDS: METOPROLOL TARTRATE PF/INJ 5 MG/5 ML SDV IV PRN (22:05)
[2019-06-13] MEDS: INSULIN GLARGINE,HUM.REC.ANLOG 1,000 UNIT/10 ML VIAL SUBCUT SCH (22:06)
[2019-06-13] MEDS: HYDROMORPHONE HCL INJ/PF 2 MG/ML AMPULE IV PRN (23:39)
[2019-06-14 03:22] LABS: APPEARANCE,URINE CLEAR; BILIRUBIN,URINE NEGATIVE (NEGATIVE); COLOR,URINE YELLOW; GLUCOSE, URINE NEGATIVE (NEGATIVE); KETONES,URINE NEGATIVE (NEGATIVE); LEUKOCYTE ESTERASE,URINE NEGATIVE (NEGATIVE); NITRITE,URINE NEGATIVE (NEGATIVE); PROTEIN,URINE NEGATIVE (NEGATIVE); UROBILINOGEN,URINE NEGATIVE mg/dL (<2.0)
[2019-06-14 06:48] LABS: INTERNATIONAL RATION (INR) 2.99; PROTHROMBIN TIME 31.7 SEC (11.4-15.4)
[2019-06-14] MEDS: PANTOPRAZOLE SODIUM 40 MG TABLET.DR PO SCH (06:55)
[2019-06-14 07:05] LABS: HEMATOCRIT 29.5 % (36.0-47.0); HEMOGLOBIN 9.7 g/dL (12.0-15.5); MEAN CORPUSCULAR HEMOGLOBIN 26.4 pg (27.0-33.4); MEAN CORPUSCULAR HGB CONC 32.9 g/dL (32.0-36.0); MEAN CORPUSCULAR VOLUME 80 fl (80-97); PLATELET COUNT 454 10^3/uL (150-450); RED BLOOD COUNT 3.67 10^6/uL (3.72-5.28); RED CELL DISTRIBUTION WIDTH 14.3 % (11.5-14.0); WHITE BLOOD COUNT 6.2 10^3/uL (4.0-10.5)
[2019-06-14 07:08] LABS: ALBUMIN 2.6 g/dL (3.5-5.0); ALKALINE PHOSPHATASE 193 U/L (38-126); ANION GAP 7 (5-19); ASPARTATE AMINO TRANSFERASE 74 U/L (14-36); BILIRUBIN,DIRECT 0.1 mg/dL (0.0-0.4); BILIRUBIN,TOTAL 0.4 mg/dL (0.2-1.3); BLOOD UREA NITROGEN 12 mg/dL (7-20); CALCIUM 8.6 mg/dL (8.4-10.2); CARBON DIOXIDE 25 mmol/L (22-30); CHLORIDE 109 mmol/L (98-107); GLUCOSE 156 mg/dL (75-110); POTASSIUM 4.3 mmol/L (3.6-5.0)
[2019-06-14 07:09] LABS: C-REACTIVE PROTEIN 28.7 mg/L (<10.0); TOTAL PROTEIN 5.4 g/dL (6.3-8.2)
[2019-06-14 07:23] LABS: ABSOLUTE LYMPHOCYTES# (MANUAL) 0.7 10^3/uL (0.5-4.7); ABSOLUTE MONOCYTES # (MANUAL) 0.1 10^3/uL (0.1-1.4); BAND NEUTROPHILS % (MANUAL) 2 % (3-5); BASOPHILS % (MANUAL) 0 % (0-2); EOSINOPHILS % (MANUAL) 0 % (0-6); LYMPHOCYTES % (MANUAL) 8 % (13-45); MONOCYTES % (MANUAL) 2 % (3-13); PLATELET COMMENT INCREASED; SEGMENTED NEUTROPHILS % (MAN) 85 % (42-78); TOTAL CELLS COUNTED 100
[2019-06-14 07:26] LABS: ANISOCYTOSIS SLIGHT; OVALOCYTES SLIGHT; POLYCHROMASIA SLIGHT
[2019-06-14 07:32] LABS: ERYTHROCYTE SEDIMENTATION RATE 84 mm/hr (0-30)
[2019-06-14] MEDS: INSULIN LISPRO 100 UNIT/ML 3 ML VIAL SUBCUT SCH ×4 (08:00→21:57)
[2019-06-14] MEDS: OXYCODONE-ACETAMINOPHEN 5-325 MG TABLET PO PRN (08:02)
[2019-06-14] MEDS: DOCUSATE SODIUM 100 MG CAPSULE PO SCH ×2 (09:21→17:00)
[2019-06-14] MEDS: LOSARTAN POTASSIUM 50 MG TABLET PO SCH ×2 (09:25→21:56)
[2019-06-14] MEDS: PREDNISONE 20 MG TABLET PO SCH ×2 (09:25→21:56)
[2019-06-14] MEDS ORDERED: COLCHICINE 0.6 MG TABLET PO ONE ×3 (11:09→14:00)
--- NOTE | 2019-06-14 11:25 | PDOC PROGRESS REPORT ---
Subjective Progress Note for:: 06/14/19 Subjective:: HONG SILVA is a 59 year old female who presented to the emergency room with a 10-day history of right knee pain. She admits the pain began 10 days ago and gradually worsened causing her to present to another ER where she was found to have a 5 cm Reeves's cyst in the right popliteal fossa. Her right knee pain is now a constant severe nonradiating aching pain made worse by any attempted weightbearing and movements. For the last week she has been unable to get out of bed because of the knee pain. She admits associated decrease in oral intake, generalized weakness, tachycardia, malaise, chills and an accompanying decrease in urination with mild dysuria. She denies other associated or accompanying signs and symptoms. She admits prior similar episodes associated with her factor V Leiden disease. She denies identification of any additional aggravating or ameliorating factors for her right knee pain. In the emergency room she was found to have a positive urine nitrite and a serum lactic acid of 2.3. Additionally she was noted to be initially hypotensive with a systolic blood pressure of 90 and a heart rate in the 130s to 140s. She has shown im provement with IV fluids. She was also noted to have an acute kidney injury and warfarin toxicity with an INR of 9.63. She was subsequently admitted to the hospital for further evaluation and treatment. 06/13/2019. No acute events overnight. Still complaining of persistent bilateral ankle pain, right knee pain improving, complaining of persistent right first PIP joint swelling and pain, denies any fever, chills, nausea, vomiting, diarrhea, constipation or any urinary symptoms. P.o. tolerant. Having normal bowel and bladder movements. 06/14/2019. No acute events overnight, patient still complaining of persistent bilateral ankle pain and swelling, right knee pain is improving, denies any fever, chills, nausea, vomiting, diarrhea, constipation or any urinary symptoms. Reason For Visit: ACUTE KIDNEY INJURY,GENERALIZED WEAKNESS Physical Exam Vital Signs: Temp Pulse Resp BP Pulse Ox 98.1 F 80 20 175/96 H 95 06/14/19 07:27 06/14/19 07:27 06/14/19 07:27 06/14/19 07:27 06/14/19 07:27 Intake & Output 06/13/19 06/14/1920 06:59 06:59 06:59 Intake Total 1730 3000 Balance 1730 3000 Weight 84.6 kg 85.2 kg General appearance: PRESENT: no acute distress, obese, well-developed, well- nourished Head exam: PRESENT: atraumatic, normocephalic Respiratory exam: PRESENT: clear to auscultation daisy. ABSENT: rales, rhonchi, wheezes Cardiovascular exam: PRESENT: RRR. ABSENT: diastolic murmur, rubs, systolic murmur GI/Abdominal exam: PRESENT: normal bowel sounds, soft. ABSENT: distended, guarding, mass, organolmegaly, rebound, tenderness Musculoskeletal exam: PRESENT: tenderness - Lateral knee swelling and tender to palpation, no erythema no discharge neurovascularly intact. Skin exam: PRESENT: dry, intact, warm. ABSENT: cyanosis, rash Results Laboratory Results: 06/14/19 06:24 06/14/19 06:24 06/14/19 06/14/19 06/14/19 03:00 06:24 06:24 WBC 6.2 RBC 3.67 L Hgb 9.7 L Hct 29.5 L MCV 80 MCH 26.4 L MCHC 32.9 RDW 14.3 H Plt Count 454 H Seg Neutrophils % Not Reportable Sodium 140.6 Potassium 4.3 Chloride 109 H Carbon Dioxide 25 Anion Gap 7 BUN 12 Creatinine 0.75 Est GFR ( Amer) > 60 Glucose 156 H Calcium 8.6 Total Bilirubin 0.4 AST 74 H Alkaline Phosphatase 193 H C-Reactive Protein 28.7 H Total Protein 5.4 L Albumin 2.6 L Urine Color YELLOW Urine Appearance CLEAR Urine pH 9.0 Ur Specific [place] 1.010 Urine Protein NEGATIVE Urine Glucose (UA) NEGATIVE Urine Ketones NEGATIVE Urine Blood NEGATIVE Urine Nitrite NEGATIVE Ur Leukocyte Esterase NEGATIVE Urine WBC (Auto) 4 Urine RBC (Auto) 1 06/09/19 16:20 Synovial Fluid - Right Knee Gram Stain - Final 06/09/19 16:20 Synovial Fluid - Right Knee Body Fluid Culture - Final NO AEROBIC OR ANAEROBIC ORGANISMS RECOVERED 06/07/19 06/07/19 06/07/19 16:28 16:28 17:25 Creatine Kinase Cancelled 70 CK-MB (CK-2) Cancelled Troponin I Cancelled 06/07/19 17:25 Creatine Kinase CK-MB (CK-2) 0.72 Troponin I < 0.012 Impressions: Chest X-Ray 06/07/19 16:33 IMPRESSION: NO ACUTE RADIOGRAPHIC FINDING IN THE CHEST. Hand X-Ray 06/08/19 00:00 IMPRESSION: MILD DEGENERATIVE CHANGES IN THE DIP JOINTS. NO ACUTE FINDINGS. Knee X-Ray 06/08/19 00:00 IMPRESSION: JOINT EFFUSION. NO BONY FINDINGS. Abdomen/Pelvis CT 06/10/19 00:00 IMPRESSION: Small amount of nonspecific free intra peritoneal fluid Diffuse colon wall thickening worrisome for colitis. Findings may be infectious or inflammatory. Ankle X-Ray 06/12/19 00:00 IMPRESSION: No fracture or foreign body. Assessment and Plan - Diagnosis (1) Polyarticular gout Is this a current diagnosis for this admission?: Yes Plan: Polyarticular non-tophaceous gout stating right knee, bilateral ankles. Synovial fluid: WBC 8533, RBC 1133, neutrophil 84, calcium pyrophosphate negative. Monosodium urate positive. RA factor negative. MARITZA multiplex negative. Uric acid 7.1 06/12/2019. Ankle x-ray no fracture or foreign body. 06/10/2019. CT abdomen pelvis. Diffuse colon wall thickening worrisome for colitis. 06/08/2019. Knee x-ray. Joint effusion. No bony findings. 06/08/2019. Hand x-ray. Mild degenerative changes in the DIP joints. No acute findings. 06/07/2019. Chest x-ray no acute radiographic finding. Not responsive to steroids. Not a candidate for NSAIDs due to YARELY. Day 6 p.o. steroids. We will add colchicine. Continue colchicine and steroids. Supportive measures. (2) YARELY (acute kidney injury) Is this a current diagnosis for this admission?: Yes Plan: Resolved. Avoid nephrotoxic meds. Monitor volume status and electrolytes replace as needed. (3) Generalized weakness Is this a current diagnosis for this admission?: Yes Plan: Improving. Continue PT. (4) Hypercoagulable state Is this a current diagnosis for this admission?: Yes Plan: Due to factor V Leyden deficiency. Was started on Lovenox and bridged to Coumadin. INR goal 2-3. Continue Coumadin. Monitor for bleeding. Daily INR. (5) Neutropenia Qualifiers: Neutropenia type: due to infection Qualified Code(s): D70.3 - Neutropenia due to infection Is this a current diagnosis for this admission?: Yes Plan: Resolved. Hematology following. Recommendations noted. (6) Sepsis Qualifiers: Severe sepsis acute organ dysfunction type: unspecified Severe sepsis shock status: unspecified Is this a current diagnosis for this admission?: Yes Plan: Resolved. WBC WNL. Afebrile. Blood cultures negative. Stool culture negative. Urine culture positive for E. coli pansensitive. Stool C. difficile is negative. She was started empirically on ceftriaxone, Flagyl and linezolid. CT scan shows colitis. C. difficile is negative. Apparently she has history of celiac disease but was not on gluten-free diet. Received a complete course of IV antibiotics. (7) Swelling of finger of right hand Is this a current diagnosis for this admission?: Yes Plan: X-ray shows mild degenerative disease. Initially right ring finger was inflamed but now resolved Yesterday the right index finger is inflamed and show signs of synovitis, improved today She has celiac disease Yesterday, we increased steroids to 20 mg twice daily (8) Thrombocytosis Is this a current diagnosis for this admission?: Yes Plan: Resolved (9) Urinary tract infection in female Is this a current diagnosis for this admission?: Yes Plan: Due to E. coli pansensitive. Received a complete course of IV antibiotics. Asymptomatic. (10) Factor V Leiden Is this a current diagnosis for this admission?: Yes Plan: as above (11) Hypertension Is this a current diagnosis for this admission?: Yes Plan: Not controlled. Euvolemic. Takes telmisartan at home. Restart home meds. PRN hydralazine and metoprolol.
[2019-06-14] MEDS ORDERED: (PENDING PHARMACY ID) (Irbesartan [Irbesartan] 300 MG) PO SCH (11:30)
[2019-06-14] MEDS ORDERED: HYDROMORPHONE HCL INJ/PF 2 MG/ML AMPULE IV PRN (11:48)
[2019-06-14] MEDS: METOPROLOL TARTRATE PF/INJ 5 MG/5 ML SDV IV PRN (11:49)
[2019-06-14] MEDS: AMLODIPINE BESYLATE 10 MG TABLET PO SCH (17:03)
[2019-06-14] MEDS: COLCHICINE 0.6 MG TABLET PO SCH (21:56)
[2019-06-14] MEDS: WARFARIN SODIUM 2 MG TABLET PO SCH (21:56)
[2019-06-14] MEDS: INSULIN GLARGINE,HUM.REC.ANLOG 1,000 UNIT/10 ML VIAL SUBCUT SCH (21:57)
[2019-06-15 05:09] LABS: HEMATOCRIT 30.6 % (36.0-47.0); HEMOGLOBIN 10.4 g/dL (12.0-15.5); MEAN CORPUSCULAR HEMOGLOBIN 27.2 pg (27.0-33.4); MEAN CORPUSCULAR HGB CONC 34.1 g/dL (32.0-36.0); MEAN CORPUSCULAR VOLUME 80 fl (80-97); PLATELET COUNT 460 10^3/uL (150-450); RED BLOOD COUNT 3.83 10^6/uL (3.72-5.28); RED CELL DISTRIBUTION WIDTH 14.5 % (11.5-14.0); WHITE BLOOD COUNT 6.4 10^3/uL (4.0-10.5)
[2019-06-15 05:11] LABS: PROTHROMBIN TIME 32.6 SEC (11.4-15.4)
[2019-06-15] MEDS: PANTOPRAZOLE SODIUM 40 MG TABLET.DR PO SCH (05:31)
[2019-06-15 06:08] LABS: ABSOLUTE LYMPHOCYTES# (MANUAL) 0.5 10^3/uL (0.5-4.7); ABSOLUTE MONOCYTES # (MANUAL) 0.2 10^3/uL (0.1-1.4); BASOPHILS % (MANUAL) 0 % (0-2); EOSINOPHILS % (MANUAL) 0 % (0-6); LYMPHOCYTES % (MANUAL) 8 % (13-45); MONOCYTES % (MANUAL) 3 % (3-13); SEGMENTED NEUTROPHILS % (MAN) 89 % (42-78); TOTAL CELLS COUNTED 100
[2019-06-15 06:10] LABS: HYPOCHROMASIA SLIGHT; OVALOCYTES SLIGHT; PLATELET COMMENT ADEQUATE; POIKILOCYTOSIS SLIGHT; POLYCHROMASIA SLIGHT; SCHISTOCYTES SLIGHT; TOXIC GRANULATION 1+; TOXIC VACUOLATION PRESENT
[2019-06-15] MEDS: INSULIN LISPRO 100 UNIT/ML 3 ML VIAL SUBCUT SCH ×4 (07:27→21:31)
[2019-06-15] MEDS: LOSARTAN POTASSIUM 50 MG TABLET PO SCH ×2 (10:15→21:39)
[2019-06-15] MEDS: PREDNISONE 20 MG TABLET PO SCH ×2 (10:16→21:40)
[2019-06-15] MEDS: DOCUSATE SODIUM 100 MG CAPSULE PO SCH ×2 (10:16→17:05)
[2019-06-15] MEDS: COLCHICINE 0.6 MG TABLET PO SCH ×2 (10:16→21:39)
[2019-06-15] MEDS: AMLODIPINE BESYLATE 10 MG TABLET PO SCH (10:16)
[2019-06-15] MEDS: OXYCODONE-ACETAMINOPHEN 5-325 MG TABLET PO PRN (10:17)
--- NOTE | 2019-06-15 10:38 | PDOC PROGRESS REPORT ---
Subjective Progress Note for:: 06/15/19 Subjective:: HONG SILVA is a 59 year old female who presented to the emergency room with a 10-day history of right knee pain. She admits the pain began 10 days ago and gradually worsened causing her to present to another ER where she was found to have a 5 cm Reeves's cyst in the right popliteal fossa. Her right knee pain is now a constant severe nonradiating aching pain made worse by any attempted weightbearing and movements. For the last week she has been unable to get out of bed because of the knee pain. She admits associated decrease in oral intake, generalized weakness, tachycardia, malaise, chills and an accompanying decrease in urination with mild dysuria. She denies other associated or accompanying signs and symptoms. She admits prior similar episodes associated with her factor V Leiden disease. She denies identification of any additional aggravating or ameliorating factors for her right knee pain. In the emergency room she was found to have a positive urine nitrite and a serum lactic acid of 2.3. Additionally she was noted to be initially hypotensive with a systolic blood pressure of 90 and a heart rate in the 130s to 140s. She has shown im provement with IV fluids. She was also noted to have an acute kidney injury and warfarin toxicity with an INR of 9.63. She was subsequently admitted to the hospital for further evaluation and treatment. 06/13/2019. No acute events overnight. Still complaining of persistent bilateral ankle pain, right knee pain improving, complaining of persistent right first PIP joint swelling and pain, denies any fever, chills, nausea, vomiting, diarrhea, constipation or any urinary symptoms. P.o. tolerant. Having normal bowel and bladder movements. 06/14/2019. No acute events overnight, patient still complaining of persistent bilateral ankle pain and swelling, right knee pain is improving, denies any fever, chills, nausea, vomiting, diarrhea, constipation or any urinary symptoms. 06/15/2019. No acute events overnight. Patient resting in bed comfortably reporting mild improvement of bilateral ankle pain and swelling, still complaining of generalized fatigue, not able to ambulate due to bilateral ankle and right knee pain, diarrhea has resolved, denies any fever, chills, nausea, vomiting, diarrhea, constipation or any urinary symptoms. Reason For Visit: ACUTE KIDNEY INJURY,GENERALIZED WEAKNESS Physical Exam Vital Signs: Temp Pulse Resp BP Pulse Ox 98.3 F 90 16 176/89 H 98 06/15/19 07:12 06/15/19 07:12 06/15/19 07:12 06/15/19 07:12 06/15/19 07:12 Intake & Output 06/14/19 06/15/19 06/16/19 06:59 06:59 06:59 Intake Total 3000 620 Balance 3000 620 Weight 85.2 kg 81.9 kg General appearance: PRESENT: no acute distress, well-developed, well-nourished Head exam: PRESENT: atraumatic, normocephalic Respiratory exam: PRESENT: clear to auscultation daisy. ABSENT: rales, rhonchi, w heezes Cardiovascular exam: PRESENT: RRR. ABSENT: diastolic murmur, rubs, systolic murmur GI/Abdominal exam: PRESENT: normal bowel sounds, soft. ABSENT: distended, guarding, mass, organolmegaly, rebound, tenderness Extremities exam: PRESENT: tenderness - Bilateral ankle tenderness and swelling, neurovascularly intact. Neurological exam: PRESENT: alert, awake, oriented to person, oriented to place, oriented to time, oriented to situation, CN II-XII grossly intact. ABSENT: motor sensory deficit Results Laboratory Results: 06/15/19 03:49 06/14/19 06:24 06/15/19 03:49 WBC 6.4 RBC 3.83 Hgb 10.4 L Hct 30.6 L MCV 80 MCH 27.2 MCHC 34.1 RDW 14.5 H Plt Count 460 H Seg Neutrophils % Not Reportable 06/07/19 06/07/19 06/07/19 16:28 16:28 17:25 Creatine Kinase Cancelled 70 CK-MB (CK-2) Cancelled Troponin I Cancelled 06/07/19 17:25 Creatine Kinase CK-MB (CK-2) 0.72 Troponin I < 0.012 Impressions: Chest X-Ray 06/07/19 16:33 IMPRESSION: NO ACUTE RADIOGRAPHIC FINDING IN THE CHEST. Hand X-Ray 06/08/19 00:00 IMPRESSION: MILD DEGENERATIVE CHANGES IN THE DIP JOINTS. NO ACUTE FINDINGS. Knee X-Ray 06/08/19 00:00 IMPRESSION: JOINT EFFUSION. NO BONY FINDINGS. Abdomen/Pelvis CT 06/10/19 00:00 IMPRESSION: Small amount of nonspecific free intra peritoneal fluid Diffuse colon wall thickening worrisome for colitis. Findings may be infectious or inflammatory. Ankle X-Ray 06/12/19 00:00 IMPRESSION: No fracture or foreign body. Assessment and Plan - Diagnosis (1) Polyarticular gout Is this a current diagnosis for this admission?: Yes Plan: Mild improvement since being started on colchicine. Polyarticular non-tophaceous gout right knee, bilateral ankles. Synovial fluid: WBC 8533, RBC 1133, neutrophil 84, calcium pyrophosphate negative. Monosodium urate positive. RA factor negative. MARITZA multiplex negative. Uric acid 7.1. Anti-CCP pending. 06/12/2019. Ankle x-ray no fracture or foreign body. 06/10/2019. CT abdomen pelvis. Diffuse colon wall thickening worrisome for colitis. 06/08/2019. Knee x-ray. Joint effusion. No bony findings. 06/08/2019. Hand x-ray. Mild degenerative changes in the DIP joints. No acute findings. 06/07/2019. Chest x-ray no acute radiographic finding. Not responsive to steroids. Not a candidate for NSAIDs due to YARELY. Day 7 p.o. steroids. Day 2 colchicine. Continue colchicine and steroids. Supportive measures. (2) Vitamin D deficiency Is this a current diagnosis for this admission?: Yes Plan: Vitamin D <12.8. Patient on chronic steroids. Start on D3 6000 units daily for 8 weeks. We will start on calcium 2000 mg daily. Outpatient PCP follow-up for evaluation of vitamin D level. (3) Generalized weakness Is this a current diagnosis for this admission?: Yes Plan: Improving. Continue PT. (4) Hypercoagulable state Is this a current diagnosis for this admission?: Yes Plan: Due to factor V Leyden deficiency. Was started on Lovenox and bridged to Coumadin. INR goal 2-3. Continue Coumadin. Monitor for bleeding. Daily INR. (5) Neutropenia Qualifiers: Neutropenia type: due to infection Qualified Code(s): D70.3 - Neutropenia due to infection Is this a current diagnosis for this admission?: Yes Plan: Resolved. Hematology following. Recommendations noted. (6) Sepsis Qualifiers: Severe sepsis acute organ dysfunction type: unspecified Severe sepsis shock status: unspecified Is this a current diagnosis for this admission?: Yes Plan: Resolved. WBC WNL. Afebrile. Blood cultures negative. Stool culture negative. Urine culture positive for E. coli pansensitive. Stool C. difficile is negative. She was started empirically on ceftriaxone, Flagyl and linezolid. CT scan shows colitis. C. difficile is negative. Apparently she has history of celiac disease but was not on gluten-free diet. Received a complete course of IV antibiotics. (7) Swelling of finger of right hand Is this a current diagnosis for this admission?: Yes Plan: X-ray shows mild degenerative disease. Initially right ring finger was inflamed but now resolved Yesterday the right index finger is inflamed and show signs of synovitis, improved today Yesterday, we increased steroids to 20 mg twice daily (8) Thrombocytosis Is this a current diagnosis for this admission?: Yes Plan: Resolved (9) Urinary tract infection in female Is this a current diagnosis for this admission?: Yes Plan: Due to E. coli pansensitive. Received a complete course of IV antibiotics. Asymptomatic. (10) Factor V Leiden Is this a current diagnosis for this admission?: Yes Plan: as above (11) Hypertension Is this a current diagnosis for this admission?: Yes Plan: Not controlled. Euvolemic. Takes telmisartan at home. Continue telmisartan, amlodipine. PRN hydralazine and metoprolol. (12) YARELY (acute kidney injury) Is this a current diagnosis for this admission?: Yes Plan: Resolved. Avoid nephrotoxic meds. Monitor volume status and electrolytes replace as needed. (13) Diabetes mellitus Qualifiers: Diabetes mellitus type: type 2 Is this a current diagnosis for this admission?: Yes Plan: Likely due to chronic steroid dependency. Hemoglobin A1c 7.2%. Diabetic education, diabetic diet, sliding scale insulin, basal insulin, Accu- Chek, hypoglycemia protocol. We will discharge on metformin 500 mg p.o. twice daily to be uptitrated 1000 mg p.o. twice daily as tolerated. Outpatient PCP follow-up.
[2019-06-15] MEDS: CHOLECALCIFEROL (D3) 1,000 UNIT (25 MCG) TABLET PO SCH (11:37)
[2019-06-15] MEDS: CALCIUM CARBONATE 500 MG TABLET PO SCH (17:04)
[2019-06-15] MEDS: WARFARIN SODIUM 2 MG TABLET PO SCH (21:39)
[2019-06-15] MEDS: INSULIN GLARGINE,HUM.REC.ANLOG 1,000 UNIT/10 ML VIAL SUBCUT SCH (21:40)
[2019-06-16] MEDS: OXYCODONE-ACETAMINOPHEN 5-325 MG TABLET PO PRN (00:02)
[2019-06-16 05:04] LABS: APPEARANCE,URINE CLOUDY; BILIRUBIN,URINE NEGATIVE (NEGATIVE); COLOR,URINE YELLOW; GLUCOSE, URINE NEGATIVE (NEGATIVE); KETONES,URINE NEGATIVE (NEGATIVE); LEUKOCYTE ESTERASE,URINE NEGATIVE (NEGATIVE); NITRITE,URINE NEGATIVE (NEGATIVE); PROTEIN,URINE NEGATIVE (NEGATIVE); URINE SPECIFIC GRAVITY 1.011; UROBILINOGEN,URINE NEGATIVE mg/dL (<2.0)
[2019-06-16 05:12] LABS: INTERNATIONAL RATION (INR) 3.23; PROTHROMBIN TIME 33.7 SEC (11.4-15.4)
[2019-06-16] MEDS: PANTOPRAZOLE SODIUM 40 MG TABLET.DR PO SCH (05:37)
[2019-06-16] MEDS: INSULIN LISPRO 100 UNIT/ML 3 ML VIAL SUBCUT SCH ×3 (07:31→16:11)
[2019-06-16] MEDS: DOCUSATE SODIUM 100 MG CAPSULE PO SCH ×2 (09:16→17:13)
[2019-06-16] MEDS: COLCHICINE 0.6 MG TABLET PO SCH (09:16)
[2019-06-16] MEDS: LOSARTAN POTASSIUM 50 MG TABLET PO SCH (09:16)
[2019-06-16] MEDS: CHOLECALCIFEROL (D3) 1,000 UNIT (25 MCG) TABLET PO SCH (09:16)
[2019-06-16] MEDS: AMLODIPINE BESYLATE 10 MG TABLET PO SCH (09:16)
[2019-06-16] MEDS: PREDNISONE 20 MG TABLET PO SCH (09:16)
[2019-06-16] MEDS: CALCIUM CARBONATE 500 MG TABLET PO SCH ×2 (09:16→17:13)
[2019-06-16 16:48] VITALS: BP 142/83
--- NOTE | 2019-06-18 15:29 | PDOC DISCHARGE SUMMARY ---
Impression - Admit/DC Date/PCP Admission Date/Primary Care Provider: 06/07/19 19:45 TANISHA MICHELLE DO Discharge Date: 06/16/19 - Discharge Diagnosis (1) Polyarticular gout Is this a current diagnosis for this admission?: Yes (2) Vitamin D deficiency Is this a current diagnosis for this admission?: Yes (3) Generalized weakness Is this a current diagnosis for this admission?: Yes (4) Hypercoagulable state Is this a current diagnosis for this admission?: Yes (5) Neutropenia Is this a current diagnosis for this admission?: Yes (6) Sepsis Is this a current diagnosis for this admission?: Yes (7) Swelling of finger of right hand Is this a current diagnosis for this admission?: Yes (8) Thrombocytosis Is this a current diagnosis for this admission?: Yes (9) Urinary tract infection in female Is this a current diagnosis for this admission?: Yes (10) Factor V Leiden Is this a current diagnosis for this admission?: Yes (11) Hypertension Is this a current diagnosis for this admission?: Yes (12) YARELY (acute kidney injury) Is this a current diagnosis for this admission?: Yes (13) Diabetes mellitus Is this a current diagnosis for this admission?: Yes - Additional Information Resuscitation Status: Full Code Discharge Diet: As Tolerated Discharge Activity: Activity As Tolerated, Balance Activity w/Rest Referrals: TANISHA MICHELLE DO [Primary Care Provider] - 06/27/19 4:00 pm Prescriptions: Calcium Citrate [Calcium Citrate 250 mg Tablet] 250 mg PO TID 30 Days #90 tablet Colchicine 0.6 mg PO DAILY 30 Days #30 capsule Warfarin Sodium [Coumadin 2 mg Tablet] 2 mg PO QHS 7 Days #7 tablet Prednisone [Deltasone 20 mg Tablet] 20 mg PO BID 11 Days #15 tablet Metformin HCl 500 mg PO BID 30 Days #60 tablet Cholecalciferol (Vitamin D3) [Vitamin D3 3000 unit Tablet] 6,000 unit PO DAILY 56 Days #112 tablet Home Medications: Hydrochlorothiazide [Hydrodiuril 12.5 mg Tablet] 12.5 mg PO DAILY 06/07/19 Irbesartan 300 mg PO DAILY 06/07/19 Prednisone [Deltasone 5 mg Tablet] 5 mg PO Q12 06/07/19 Calcium Citrate [Calcium Citrate 250 mg Tablet] 250 mg PO TID 30 Days #90 tablet 06/16/19 Cholecalciferol (Vitamin D3) [Vitamin D3 3000 unit Tablet] 6,000 unit PO DAILY 56 Days #112 tablet 06/16/19 Colchicine 0.6 mg PO DAILY 30 Days #30 capsule 06/16/19 Metformin HCl 500 mg PO BID 30 Days #60 tablet 06/16/19 Prednisone [Deltasone 20 mg Tablet] 20 mg PO BID 11 Days #15 tablet 06/16/19 Warfarin Sodium [Coumadin 2 mg Tablet] 2 mg PO QHS 7 Days #7 tablet 06/16/19 History of Present Illiness History of Present Illness: HONG SILVA is a 59 year old female who presented to the emergency room with a 10-day history of right knee pain. She admits the pain began 10 days ago and gradually worsened causing her to present to another ER where she was found to have a 5 cm Reeves's cyst in the right popliteal fossa. Her right knee pain is now a constant severe nonradiating aching pain made worse by any attempted weightbearing and movements. For the last week she has been unable to get out of bed because of the knee pain. She admits associated decrease in oral intake, generalized weakness, tachycardia, malaise, chills and an accompanying decrease in urination with mild dysuria. She denies other associated or accompanying signs and symptoms. She admits prior similar episodes associated with her factor V Leiden disease. She denies identification of any additional aggravating or ameliorating factors for her right knee pain. In the emergency room she was found to have a positive urine nitrite and a serum lactic acid of 2.3. Additionally she was noted to be initially hypotensive with a systolic blood pressure of 90 and a heart rate in the 130s to 140s. She has shown improvement with IV fluids. She was also noted to have an acute kidney injury and warfarin toxicity with an INR of 9.63. She was subsequently admitted to the hospital for further evaluation and treatment. Hospital Course Hospital Course: (1) Polyarticular gout Moderate improvement since being started on colchicine. Polyarticular non-tophaceous gout right knee, bilateral ankles. Synovial fluid: WBC 8533, RBC 1133, neutrophil 84, calcium pyrophosphate negative. Monosodium urate positive. RA factor negative. MARITZA multiplex negative. Uric acid 7.1. Anti-CCP negative. 06/12/2019. Ankle x-ray no fracture or foreign body. 06/10/2019. CT abdomen pelvis. Diffuse colon wall thickening worrisome for colitis. 06/08/2019. Knee x-ray. Joint effusion. No bony findings. 06/08/2019. Hand x-ray. Mild degenerative changes in the DIP joints. No acute findings. 06/07/2019. Chest x-ray no acute radiographic finding. Not responsive to steroids. Not a candidate for NSAIDs due to YARELY. Received 7 days of p.o. steroids. Received 2 days of colchicine. Day 7 p.o. steroids. Was discharged on colchicine and tapered dose steroids. Unfortunately no rheumatology consult available overnight. Patient was strongly advised to follow-up with company accountant. (2) Vitamin D deficiency Vitamin D <12.8. Patient on chronic steroids. Started on D3 6000 units daily for 8 weeks and calcium supplements. Was discharged on D3 and calcium supplements. Was advised to follow-up with PCP for evaluation of vitamin D level. (3) Generalized weakness Improved. Continue PT. (4) Hypercoagulable state Due to factor V Leyden deficiency. Was started on Lovenox and bridged to Coumadin with INR monitoring. INR goal 2-3. Coumadin follow-up with PCP and INR clinic. Note. Patient is stating that she has been on Coumadin for over 20 years very educated about Coumadin and nutritional restrictions. (5) Neutropenia Resolved. Hematology following. Recommendations noted. (6) Sepsis Resolved. WBC WNL. Afebrile. Blood cultures negative. Stool culture negative. Urine culture positive for E. coli pansensitive. Stool C. difficile is negative. She was started empirically on ceftriaxone, Flagyl and linezolid. CT scan shows colitis. C. difficile is negative. Apparently she has history of celiac disease but was not on gluten-free diet. Received a complete course of IV antibiotics. (7) Swelling of finger of right hand X-ray shows mild degenerative disease. Initially right ring finger was inflamed but now resolved Yesterday the right index finger is inflamed and show signs of synovitis, improved today Yesterday, we increased steroids to 20 mg twice daily (8) Thrombocytosis Resolved (9) Urinary tract infection in female Due to E. coli pansensitive. Received a complete course of IV antibiotics. Asymptomatic. (10) Factor V Leiden as above (11) Hypertension Normotensive. Euvolemic. Takes telmisartan and HCTZ at home. Continued telmisartan, amlodipine. Was advised to restart home meds upon discharge. (12) YARELY (acute kidney injury) Resolved. Avoid nephrotoxic meds. Monitored volume status and electrolytes replace as needed. (13) Diabetes mellitus Likely due to chronic steroid dependency. Hemoglobin A1c 7.2%. Diabetic education, diabetic diet, sliding scale insulin, basal insulin, Accu- Chek, hypoglycemia protocol. Was discharged on metformin 500 mg p.o. twice daily to be uptitrated 1000 mg p.o. twice daily as tolerated. Outpatient PCP follow-up. Physical Exam Vital Signs: Temp Pulse Resp BP Pulse Ox 98.6 F 113 H 17 142/83 H 95 06/16/19 16:00 06/16/19 16:00 06/16/19 16:00 06/16/19 16:00 06/16/19 16:00 Intake & Output 06/17/19 06/18/19 06/19/19 06:59 06:59 06:59 Intake Total 120 Balance 120 General appearance: PRESENT: no acute distress, well-developed, well-nourished Head exam: PRESENT: atraumatic, normocephalic Respiratory exam: PRESENT: clear to auscultation daisy. ABSENT: rales, rhonchi, wheezes Cardiovascular exam: PRESENT: RRR. ABSENT: diastolic murmur, rubs, systolic murmur GI/Abdominal exam: PRESENT: normal bowel sounds, soft. ABSENT: distended, guarding, mass, organolmegaly, rebound, tenderness Musculoskeletal exam: PRESENT: tenderness - Lateral ankle tenderness. No erythema. Mild swelling. Neurovascularly intact. Neurological exam: PRESENT: alert, awake, oriented to person, oriented to place, oriented to time, oriented to situation, CN II-XII grossly intact. ABSENT: motor sensory deficit Results Laboratory Results: WBC 6.4 10^3/uL (4.0-10.5) 06/15/19 03:49 RBC 3.83 10^6/uL (3.72-5.28) 06/15/19 03:49 Hgb 10.4 g/dL (12.0-15.5) L 06/15/19 03:49 Hct 30.6 % (36.0-47.0) L 06/15/19 03:49 MCV 80 fl (80-97) 06/15/19 03:49 MCH 27.2 pg (27.0-33.4) 06/15/19 03:49 MCHC 34.1 g/dL (32.0-36.0) 06/15/19 03:49 RDW 14.5 % (11.5-14.0) H 06/15/19 03:49 Plt Count 460 10^3/uL (150-450) H 06/15/19 03:49 Lymph % (Auto) Not Reportable 06/15/19 03:49 [place] % (Auto) Not Reportable 06/15/19 03:49 Eos % (Auto) Not Reportable 06/15/19 03:49 Baso % (Auto) Not Reportable 06/15/19 03:49 Absolute Neuts (auto) Not Reportable 06/15/19 03:49 Absolute Lymphs (auto) Not Reportable 06/15/19 03:49 Absolute Monos (auto) Not Reportable 06/15/19 03:49 Absolute Eos (auto) Not Reportable 06/15/19 03:49 Absolute Basos (auto) Not Reportable 06/15/19 03:49 Total Counted 100 06/15/19 03:49 Seg Neutrophils % Not Reportable 06/15/19 03:49 Seg Neuts % (Manual) 89 % (42-78) H 06/15/19 03:49 Band Neutrophils % 2 % (3-5) L 06/14/19 06:24 Lymphocytes % (Manual) 8 % (13-45) L 06/15/19 03:49 Atypical Lymphs % 3 % (0) 06/14/19 06:24 Monocytes % (Manual) 3 % (3-13) 06/15/19 03:49 Eosinophils % (Manual) 0 % (0-6) 06/15/19 03:49 Basophils % (Manual) 0 % (0-2) 06/15/19 03:49 Abs Neuts (Manual) 5.7 10^3/uL (1.7-8.2) 06/15/19 03:49 Abs Lymphs (Manual) 0.5 10^3/uL (0.5-4.7) 06/15/19 03:49 Abs Monocytes (Manual) 0.2 10^3/uL (0.1-1.4) 06/15/19 03:49 Absolute Eos (Manual) 0.0 10^3/uL (0.0-0.6) 06/15/19 03:49 Abs Basophils (Manual) 0.0 10^3/uL (0.0-0.2) 06/15/19 03:49 Nucleated RBCs 2 /100 WBC (0) 06/08/19 05:14 Toxic Granulation 1+ 06/15/19 03:49 Toxic Vacuolation PRESENT 06/15/19 03:49 Platelet Comment ADEQUATE 06/15/19 03:49 Polychromasia SLIGHT 06/15/19 03:49 Hypochromasia SLIGHT 06/15/19 03:49 Poikilocytosis SLIGHT 06/15/19 03:49 Anisocytosis SLIGHT 06/14/19 06:24 Microcytosis SLIGHT 06/15/19 03:49 Ovalocytes SLIGHT 06/15/19 03:49 Schistocytes SLIGHT 06/15/19 03:49 RBC Morph Comment NORMO-CYTIC/CHROMIC 06/08/19 05:14 ESR 84 mm/hr (0-30) H 06/14/19 06:24 PT 33.7 SEC (11.4-15.4) H 06/16/19 03:59 INR 3.23 06/16/19 03:59 INR (Anticoag Therapy) Cancelled 06/07/19 16:28 VBG pH 7.34 (7.30-7.42) 06/07/19 16:53 VBG pCO2 67.7 mmHg (35-63) H* 06/07/19 16:53 VBG HCO3 35.4 mmol/L (20-32) H 06/07/19 16:53 VBG Base Excess 6.5 mmol/L 06/07/19 16:53 Sodium 140.6 mmol/L (137-145) 06/14/19 06:24 Potassium 4.3 mmol/L (3.6-5.0) 06/14/19 06:24 Chloride 109 mmol/L (98-107) H 06/14/19 06:24 Carbon Dioxide 25 mmol/L (22-30) 06/14/19 06:24 Anion Gap 7 (5-19) 06/14/19 06:24 BUN 12 mg/dL (7-20) 06/14/19 06:24 Creatinine 0.75 mg/dL (0.52-1.25) 06/14/19 06:24 Est GFR ( Amer) > 60 (>60) 06/14/19 06:24 Est GFR (Non-Af Amer) Cancelled 06/07/19 16:28 Est GFR (MDRD) Non-Af > 60 (>60) 06/14/19 06:24 Glucose 156 mg/dL (75-110) H 06/14/19 06:24 POC Glucose 193 mg/dL (70-110) H 06/16/19 16:06 Hemoglobin A1c % 7.3 % (4.7-6.0) H 06/07/19 16:28 Lactic Acid 1.2 mmol/L (0.7-2.1) 06/08/19 05:14 Uric Acid 7.1 mg/dL (2.5-7.5) 06/12/19 12:52 Calcium 8.6 mg/dL (8.4-10.2) 06/14/19 06:24 Magnesium 1.9 mg/dL (1.6-2.3) 06/12/19 12:20 Total Bilirubin 0.4 mg/dL (0.2-1.3) 06/14/19 06:24 Direct Bilirubin 0.1 mg/dL (0.0-0.4) 06/14/19 06:24 Neonat Total Bilirubin Not Reportable 06/14/19 06:24 Neonat Direct Bilirubin Not Reportable 06/14/19 06:24 Neonat Indirect Bili Not Reportable 06/14/19 06:24 AST 74 U/L (14-36) H 06/14/19 06:24 ALT 50 U/L (<35) 06/14/19 06:24 Alkaline Phosphatase 193 U/L (38-126) H 06/14/19 06:24 Creatine Kinase 70 U/L (30-135) 06/07/19 17:25 CK-MB (CK-2) 0.72 ng/mL (<4.55) 06/07/19 17:25 Troponin I < 0.012 ng/mL 06/07/19 17:25 C-Reactive Protein 28.7 mg/L (<10.0) H 06/14/19 06:24 Total Protein 5.4 g/dL (6.3-8.2) L 06/14/19 06:24 Albumin 2.6 g/dL (3.5-5.0) L 06/14/19 06:24 EGFR Cancelled 06/07/19 16:28 Vitamin D 25-Hydroxy < 12.8 ng/mL (14.7-68.3) L 06/14/19 06:24 TSH 1.47 uIU/mL (0.47-4.68) 06/07/19 17:25 Urine Color YELLOW 06/16/19 04:05 Urine Appearance CLOUDY 06/16/19 04:05 Urine pH 7.0 (5.0-9.0) 06/16/19 04:05 Ur Specific [place] 1.011 06/16/19 04:05 Urine Protein NEGATIVE mg/dL (NEGATIVE) 06/16/19 04:05 Urine Glucose (UA) NEGATIVE mg/dL (NEGATIVE) 06/16/19 04:05 Urine Ketones NEGATIVE mg/dL (NEGATIVE) 06/16/19 04:05 Urine Blood NEGATIVE (NEGATIVE) 06/16/19 04:05 Urine Nitrite NEGATIVE (NEGATIVE) 06/16/19 04:05 Urine Bilirubin NEGATIVE (NEGATIVE) 06/16/19 04:05 Urine Urobilinogen NEGATIVE mg/dL (<2.0) 06/16/19 04:05 Ur Leukocyte Esterase NEGATIVE (NEGATIVE) 06/16/19 04:05 Urine WBC (Auto) 11 /HPF 06/16/19 04:05 Urine RBC (Auto) 41 /HPF 06/16/19 04:05 U Hyaline Cast (Auto) 1 /LPF 06/07/19 18:43 Urine Bacteria (Auto) TRACE /HPF 06/16/19 04:05 Squamous Epi Cells Auto 3 /HPF 06/16/19 04:05 U Non-Squamous Epis Auto 1 /HPF 06/12/19 21:25 Amorphous Sediment Auto TRACE /HPF 06/12/19 21:25 Urine Mucus (Auto) RARE /LPF 06/16/19 04:05 Urine Ascorbic Acid NEGATIVE (NEGATIVE) 06/16/19 04:05 Fluid Type SYNOVIAL 06/09/19 16:20 Fluid Type SYNOVIAL 06/09/19 16:20 Fluid Source KNEE 06/09/19 16:20 Fluid Color YELLOW 06/09/19 16:20 Fluid Appearance CLEAR 06/09/19 16:20 Fluid Viscosity SLIGHTLY VISCOUS 06/09/19 16:20 Fluid WBC 8533 /uL 06/09/19 16:20 Fluid RBC 1133 /uL 06/09/19 16:20 Fluid Seg Neutrophils 84 % 06/09/19 16:20 Fluid Lymphocytes 2 % 06/09/19 16:20 Fluid Monocytes 14 % 06/09/19 16:20 Fluid Eosinophils 0 % 06/09/19 16:20 Fluid Basophils 0 % 06/09/19 16:20 Fluid Crystals NONE OBSERVED 06/09/19 16:20 Fluid Crystal Source RIGHT KNEE 06/09/19 16:20 Ca Pyrophosphate Cryst NONE OBSERVED 06/09/19 16:20 Synov Monosodium Urate Intra&Extracellular 06/09/19 16:20 Stl C. Difficile GDH Ag NEGATIVE (NEGATIVE) 06/09/19 19:55 Stl C.difficile Tox A&B NEGATIVE (NEGATIVE) 06/09/19 19:55 Rheumatoid Factor NEGATIVE (NEGATIVE) 06/11/19 12:52 CCP IgG/IgA Ab 13 units (0-19) 06/15/19 03:49 MARITZA (Multiplex) Negative (Negative) 06/11/19 12:52 Slides for Path Review PATHOLOGIST REVIEWED 06/08/19 05:14 06/07/19 06/07/19 16:28 17:25 CK-MB (CK-2) Cancelled 0.72 Troponin I Cancelled < 0.012 Impressions: Chest X-Ray 06/07/19 16:33 IMPRESSION: NO ACUTE RADIOGRAPHIC FINDING IN THE CHEST. Hand X-Ray 06/08/19 00:00 IMPRESSION: MILD DEGENERATIVE CHANGES IN THE DIP JOINTS. NO ACUTE FINDINGS. Knee X-Ray 06/08/19 00:00 IMPRESSION: JOINT EFFUSION. NO BONY FINDINGS. Abdomen/Pelvis CT 06/10/19 00:00 IMPRESSION: Small amount of nonspecific free intra peritoneal fluid Diffuse colon wall thickening worrisome for colitis. Findings may be infectious or inflammatory. Ankle X-Ray 06/12/19 00:00 IMPRESSION: No fracture or foreign body. Stroke Is this a Stroke Patient?: No Acute Heart Failure - Is this a Heart Failure Patient?: No
[2019-06-19 10:50] LABS: RHEUMATOID FACTOR LEVELS IGG 6.5 EU/ml (.)
== END 2019-06-16 21:35 | disposition home or self-care (01) | DRG 872 ==
LOC: ER 15:47 → EH 19:45 → 4N 22:34
PROVIDERS: ADMIT Emergency Medicine; ATTEND Emergency Medicine
PROC: 0S9C3ZX Drainage of Right Knee Joint, Percutaneous Approach, Diagnostic (ICD-10-PCS; principal; 2019-06-09)
DX: A41.9 Sepsis, unspecified organism (principal); N39.0 Urinary tract infection, site not specified; N17.9 Acute kidney failure, unspecified; D68.51 Activated protein C resistance; E55.9 Vitamin D deficiency, unspecified; M1A.0610 Idiopathic chronic gout, right knee, without tophus (tophi); M1A.0720 Idiopathic chronic gout, left ankle and foot, without tophus (tophi); M1A.0710 Idiopathic chronic gout, right ankle and foot, without tophus (tophi); T45.515A Adverse effect of anticoagulants, initial encounter; I10 Essential (primary) hypertension; D47.3 Essential (hemorrhagic) thrombocythemia; D70.9 Neutropenia, unspecified; M25.461 Effusion, right knee; B96.20 Unspecified Escherichia coli [E. coli] as the cause of diseases classified elsewhere; K90.0 Celiac disease; E86.0 Dehydration; R00.0 Tachycardia, unspecified; J44.9 Chronic obstructive pulmonary disease, unspecified; T45.516A Underdosing of anticoagulants, initial encounter; M71.21 Synovial cyst of popliteal space [Baker], right knee; Z91.128 Patient's intentional underdosing of medication regimen for other reason; M65.9 Synovitis and tenosynovitis, unspecified; E09.9 Drug or chemical induced diabetes mellitus without complications; T38.0X5A Adverse effect of glucocorticoids and synthetic analogues, initial encounter; Z86.14 Personal history of Methicillin resistant Staphylococcus aureus infection; Z82.49 Family history of ischemic heart disease and other diseases of the circulatory system; Z83.3 Family history of diabetes mellitus; Z88.1 Allergy status to other antibiotic agents; Z88.5 Allergy status to narcotic agent; Z79.899 Other long term (current) drug therapy; Z79.52 Long term (current) use of systemic steroids
CPT/HCPCS: 36415; 71045; 74177; 80048; 80053; 81001; 82306; 82550; 82553; 82803; 82962; 83036; 83605; 83735; 84443; 84484; 84550; 85025; 85027; 85610; 85652; 86038; 86140; 86200; 86430; 86431; 87040; 87045; 87070; 87075; 87086; 87088; 87186; 87205; 87324; 87449; 89050; 89060; 93005; 93010; 96365; 99285; J0696; J1170; J1650; J1815; J2020; J2550; J3475; J3490; J7120; J7121; J7512